=== PATIENT | female | born 1960 | race Caucasian/White ===

== ENCOUNTER 2016-05-04 15:42 | Emergency (ER) | payer BC, MEDICARE, OTHER ==
--- NOTE | 2016-05-04 16:58 | ED.PDOC ---
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 She took out some garbage that had been behind the patient's chair for an unknown period of time, and was stuck by a hypodermic needle at the bottom of the trash bag. The patient does not take any medications parenterally, therefore, the source of the needle is unknown. Patient copiously washed her finger with soap and water after the stick and called her employer who told her to come to the ED for evaluation. Timing/Duration: other - 1300 today Severity: moderate Improving Factors: nothing Worsening Factors: nothing Allergies/Adverse Reactions: Allergies Cephalexin [From Keflex] Allergy (Unknown, Verified 05/04/16 15:58) per physician order sheet Morphine Allergy (Unknown, Verified 05/04/16 15:58) Erythromycin Allergy (Verified 05/04/16 15:58) Orphenadrine [From K-Flex] Allergy (Verified 05/04/16 15:58) Prochlorperazine [From Compazine] Allergy (Verified 05/04/16 15:58) Sulfa Drugs Allergy (Verified 05/04/16 15:58) Tetanus Toxoid Allergy (Verified 03/01/15 19:23) mycins Allergy (Uncoded 05/04/16 15:58) Home Medications: Ambulatory Orders Duloxetine HCl [Cymbalta] 60 mg PO BID #0 07/11/13 Sertraline HCl [Zoloft] 100 mg PO DAILY 12/13/14 Clindamycin HCl 300 mg PO TID #21 cap 05/04/16 Clonazepam 2 mg PO 05/04/16 Emtricitabine-Tenofovir Alafen [Descovy 200-25 mg] 1 tab PO DAILY #28 tab Raltegravir Potassium [Isentress] 400 mg PO BID #56 tab 05/04/16 Review of Systems - Review of Systems Constitutional: States: no symptoms reported EENTM: States: no symptoms reported Respiratory: States: no symptoms reported Cardiology: States: chest pain Gastrointestinal/Abdominal: States: diarrhea Genitourinary: States: no symptoms reported Musculoskeletal: States: no symptoms reported Skin: States: no symptoms reported Neurological: States: seizure Endocrine: States: no symptoms reported Hematologic/Lymphatic: States: no symptoms reported All other Systems: Reviewed and Negative Past Medical History (General) - Patient Medical History Hx Seizures: Yes Hx Stroke: No Hx Dementia: No Hx Asthma: No Hx of COPD: No Hx Cardiac Disorders: No Hx Congestive Heart Failure: No Hx Pacemaker: No Hx Hypertension: No Hx Thyroid Disease: No Hx Diabetes: No Hx Gastroesophageal Reflux: No Hx Renal Disease: No Hx Cancer: No Hx of HIV: No Hx Hepatitis C: No Hx MRSA: No MRSA Source:: nasal Surgical History: Hysterectomy - Vaccination History Hx Tetanus, Diphtheria Vaccination: No Hx Influenza Vaccination: No Hx Pneumococcal Vaccination: No Immunizations Up to Date: No - Social History Hx Tobacco Use: No Hx Chewing Tobacco Use: No Hx Alcohol Use: No Hx Substance Use: Yes - iv drugs Hx Substance Use Treatment: No Hx Depression: Yes Feels Threatened In Home Enviroment: No Feels Threatened In a Relationship: No Hx Physical Abuse: No Hx Emotional Abuse: No Hx Suspected Abuse: No - Female History Patient : No Family Medical History - Family History Mother Family History: No Known Living Status: Unknown Hx Family Asthma: No Hx Family;Other: pt unable to explain family history at this time Physical Exam - Physical Exam General Appearance: Agitated, Anxious, No apparent distress Ears, Nose, Throat: hearing grossly normal Respiratory: no respiratory distress Extremity: other - Right 3rd finger: erythema with very small puncture at volar tip of finger Neurologic: alert, oriented x 3 Skin Exam: other - See extremity exam. Departure - Departure Clinical Impression: Exposure to body fluids by contaminated hypodermic needle stick Time of Disposition: 17:56 Disposition: Discharge to Home or Self Care Departure Forms: ED Discharge - Pt. Copy, Patient Portal Self Enrollment Diet: resume usual diet Referrals: Mikey Singh MD [Primary Care Provider] - 1-2 Weeks Prescriptions: Clindamycin HCl 300 mg PO TID #21 cap Emtricitabine-Tenofovir Alafen [Descovy 200-25 mg] 1 tab PO DAILY #28 tab Raltegravir Potassium [Isentress] 400 mg PO BID #56 tab Home Medications: Ambulatory Orders Duloxetine HCl [Cymbalta] 60 mg PO BID #0 07/11/13 Sertraline HCl [Zoloft] 100 mg PO DAILY 12/13/14 Clindamycin HCl 300 mg PO TID #21 cap 05/04/16 Clonazepam 2 mg PO 05/04/16 Emtricitabine-Tenofovir Alafen [Descovy 200-25 mg] 1 tab PO DAILY #28 tab Raltegravir Potassium [Isentress] 400 mg PO BID #56 tab 05/04/16
[2016-05-04 18:05] VITALS: BP 99/67; TEMP 98.2; O2SAT 100
== END 2016-05-04 18:07 | disposition home or self-care (01) ==
LOC: ER 15:42
DX: S61.232A Puncture wound without foreign body of right middle finger without damage to nail, initial encounter (principal); Z88.6 Allergy status to analgesic agent; Z88.3 Allergy status to other anti-infective agents; Z88.2 Allergy status to sulfonamides; Z88.7 Allergy status to serum and vaccine; Z79.899 Other long term (current) drug therapy; W46.1XXA Contact with contaminated hypodermic needle, initial encounter; Y92.009 Unspecified place in unspecified non-institutional (private) residence as the place of occurrence of the external cause; Y99.0 Civilian activity done for income or pay

== ENCOUNTER 2016-05-06 18:47 | Emergency (ER) | payer MEDICARE ==
[2016-05-06] MEDS ORDERED: SODIUM CHLORIDE 0.9% 1000ML 1,000 ML IVS ONE (19:02)
[2016-05-06] MEDS: KETOROLAC TROMETHAMINE INJ 30 MG/ML VIAL IV ONE ×2 (20:05→20:09)
[2016-05-06] MEDS ORDERED: KETOROLAC TROMETHAMINE INJ 30 MG/ML VIAL IV ONE (20:46)
--- NOTE | 2016-05-06 20:52 | CT ---
EXAM DESCRIPTION: CT Abdomen/Pelvis w/Contrast CLINICAL HISTORY: lower back pain, hx of stones COMPARISON: None Available TECHNIQUE: Contiguous axial images of the abdomen and pelvis were obtained after the administration of intravenous contrast followed by reconstruction images. FINDINGS: The liver, spleen, pancreas and kidneys are within normal limits. There is no hydronephrosis or renal stones. The gallbladder is unremarkable by CT criteria. Adrenal glands are within normal limits. Aorta is of normal caliber and tapering. There is atherosclerosis. Patient is status post lumbar surgery. There is no free fluid in the abdomen or pelvis. There is no bowel obstruction. There is no stranding of the mesenteric fat to suggest an inflammatory response. The appendix is within normal limits. There is no pericecal inflammation. IMPRESSION: No acute intra-abdominal abnormality Electronically signed by: Rodrick Pedraza MD 05/06/2016 6:51 PM PST
--- NOTE | 2016-05-06 21:00 | ED.PDOC ---
History of Present Illness - General Chief Complaint: Problem Stated Complaint: has not voided Time Seen by Provider: 05/06/16 18:57 Source: patient Exam Limitations: no limitations - History of Present Illness Initial Comments: Patient presents saying that she has had diarrhea and has not been able to void in 2 days. She is a poor historian and says that she was able to void some yesterday for a doctor's visit. She had a stool sample taken at that time. She says she has severe right lower back pain and wants pain medications because it feels like when she had "stones". She had a needle stick injury at work earlier this week and says that she has not taken any of the prophylactic medications prescribed to her. No other complaints. Timing/Duration: 1 week Severity: moderate Improving Factors: nothing Worsening Factors: nothing Associated Symptoms: denies symptoms Allergies/Adverse Reactions: Allergies Cephalexin [From Keflex] Allergy (Unknown, Verified 05/06/16 19:08) per physician order sheet Morphine Allergy (Unknown, Verified 05/06/16 19:08) Erythromycin Allergy (Verified 05/06/16 19:08) Orphenadrine [From K-Flex] Allergy (Verified 05/06/16 19:08) Prochlorperazine [From Compazine] Allergy (Verified 05/06/16 19:08) Sulfa Drugs Allergy (Verified 05/06/16 19:08) Tetanus Toxoid Allergy (Verified 05/06/16 19:08) mycins Allergy (Uncoded 05/06/16 19:08) Home Medications: Ambulatory Orders Duloxetine HCl [Cymbalta] 60 mg PO BID #0 07/11/13 Sertraline HCl [Zoloft] 100 mg PO DAILY 12/13/14 Clindamycin HCl 300 mg PO TID #21 cap 05/04/16 Clonazepam 2 mg PO 05/04/16 Emtricitabine-Tenofovir Alafen [Descovy 200-25 mg] 1 tab PO DAILY #28 tab Raltegravir Potassium [Isentress] 400 mg PO BID #56 tab 05/04/16 Review of Systems - Review of Systems Constitutional: States: no symptoms reported EENTM: States: no symptoms reported Respiratory: States: no symptoms reported Cardiology: States: no symptoms reported Gastrointestinal/Abdominal: States: see HPI Genitourinary: States: see HPI Musculoskeletal: States: see HPI Skin: States: no symptoms reported Neurological: States: no symptoms reported Endocrine: States: no symptoms reported Hematologic/Lymphatic: States: no symptoms reported Past Medical History (General) - Patient Medical History Hx Seizures: Yes Hx Stroke: No Hx Dementia: No Hx Asthma: No Hx of COPD: No Hx Cardiac Disorders: No Hx Congestive Heart Failure: No Hx Pacemaker: No Hx Hypertension: No Hx Thyroid Disease: No Hx Diabetes: No Hx Gastroesophageal Reflux: No Hx Renal Disease: No Hx Cancer: No Hx of HIV: No Hx Hepatitis C: No Hx MRSA: No MRSA Source:: nasal Surgical History: Hysterectomy - Vaccination History Hx Tetanus, Diphtheria Vaccination: Yes Hx Influenza Vaccination: No Hx Pneumococcal Vaccination: No Immunizations Up to Date: No - Social History Hx Tobacco Use: No Hx Chewing Tobacco Use: No Hx Alcohol Use: Yes Hx Substance Use: No Hx Substance Use Treatment: No Hx Depression: Yes Hx Physical Abuse: No Hx Emotional Abuse: No Hx Suspected Abuse: No - Female History Patient is a Female of Child Bearing Age (10 -59 yrs old): No Patient : No Family Medical History - Family History Mother Family History: No Known Living Status: Unknown Hx Family Asthma: No Hx Family;Other: pt unable to explain family history at this time Physical Exam - Physical Exam General Appearance: Alert Ears, Nose, Throat: normal ENT inspection Neck: non-tender, full range of motion, supple Respiratory: chest non-tender, lungs clear, normal breath sounds Cardiovascular/Chest: regular rate, rhythm, no edema Gastrointestinal/Abdominal: normal bowel sounds, non tender, soft Back Exam: normal inspection, no CVA tenderness, no vertebral tenderness Extremity: no pedal edema Neurologic: no motor/sensory deficits Skin Exam: normal color Lymphatic: no adenopathy Progress - Progress Progress: 05/06/16 21:01 Laboratory Tests 05/06/16 19:10 WBC 9.8 RBC 4.35 Hgb 13.2 Hct 39.3 MCV 90.3 MCH 30.4 MCHC 33.7 RDW 13.4 Plt Count 244 MPV 8.4 Absolute Neuts (auto) 4.60 Absolute Lymphs (auto) 4.20 H Absolute Monos (auto) 0.70 Absolute Eos (auto) 0.20 Absolute Basos (auto) 0.10 Neutrophils % 47.2 Lymphocytes % 42.4 Monocytes % 7.4 Eosinophils % 2.0 Basophils % 1.0 Sodium 138 Potassium 4.2 Chloride 102 Carbon Dioxide 29 Anion Gap 11.2 L BUN 23 H D Creatinine 0.58 L BUN/Creatinine Ratio 39.7 H Random Glucose 91 Serum Osmolality 278.9 Calcium 9.0 Total Bilirubin 0.2 D AST 25 ALT 22 Alkaline Phosphatase 81 D Serum Total Protein 7.3 Albumin 4.7 Globulin 2.6 Albumin/Globulin Ratio 1.8 Patient was cathed for a urine sample. BUN/Cr 23/0.58. Patient was given a liter of NS and toradol 30 mg IV x one. Her pain resolved and she refused another liter of fluid. She said she could drink fluids at home. Patient was provided with a self-cath kit and instructions to follow up with her pcp or urology if for urinary retention. Departure - Departure Clinical Impression: Retention of urine, Dehydration Disposition: Discharge to Home or Self Care Condition: Good Departure Forms: ED Discharge - Pt. Copy, Patient Portal Self Enrollment Diet: resume usual diet Activity: increase activity as tolerated Referrals: Mikey Singh MD [Primary Care Provider] - 1-2 Weeks Home Medications: Ambulatory Orders Duloxetine HCl [Cymbalta] 60 mg PO BID #0 07/11/13 Sertraline HCl [Zoloft] 100 mg PO DAILY 12/13/14 Clindamycin HCl 300 mg PO TID #21 cap 05/04/16 Clonazepam 2 mg PO 05/04/16 Emtricitabine-Tenofovir Alafen [Descovy 200-25 mg] 1 tab PO DAILY #28 tab Raltegravir Potassium [Isentress] 400 mg PO BID #56 tab 05/04/16 Additional Instructions: Increase fluids. Perform self-cath as needed. Follow up with primary care physician or urologist for your reported urinary retention.
[2016-05-06 21:38] VITALS: BP 107/70; TEMP 96.7; O2SAT 97
== END 2016-05-06 21:37 | disposition home or self-care (01) ==
LOC: ER 18:47
DX: E86.0 Dehydration (principal); R33.9 Retention of urine, unspecified; Z87.442 Personal history of urinary calculi; Z88.3 Allergy status to other anti-infective agents; Z88.6 Allergy status to analgesic agent; Z88.2 Allergy status to sulfonamides; Z88.7 Allergy status to serum and vaccine
CPT/HCPCS: 36415; 74177; 80053; 81001; 83630; 85025; 87045; 87046; 87324; J1885; J7030

== ENCOUNTER 2016-05-27 18:04 | Emergency (ER) | payer MEDICARE ==
[2016-05-27] MEDS: SUMAtriptan SUCCINATE INJ 6 MG/0.5 ML VIAL SUBCU ONE (18:50)
--- NOTE | 2016-05-27 19:22 | ED.PDOC ---
History of Present Illness - General Chief Complaint: Headache Stated Complaint: MIGRAINE Time Seen by Provider: 05/27/16 18:34 Source: patient, RN notes reviewed, Vital Signs reviewed, family Exam Limitations: no limitations - History of Present Illness Initial Comments: Patient is a 55 y/o female with a history of migraines who has had a headache for 5 days. It was somewhat tolerable until today. She has taken Imitrex for headaches previously, however she does not have any now. She tries to not take any medications if possible. She has nausea as well. She is photophobic. Timing/Duration: getting worse, other - 4 days Severity: severe Improving Factors: nothing Worsening Factors: other - light, sound Associated Symptoms: headaches, nausea/vomiting Allergies/Adverse Reactions: Allergies Cephalexin [From Keflex] Allergy (Unknown, Verified 05/06/16 19:08) per physician order sheet Morphine Allergy (Unknown, Verified 05/06/16 19:08) Erythromycin Allergy (Verified 05/06/16 19:08) Orphenadrine [From K-Flex] Allergy (Verified 05/06/16 19:08) Prochlorperazine [From Compazine] Allergy (Verified 05/06/16 19:08) Sulfa Drugs Allergy (Verified 05/06/16 19:08) Tetanus Toxoid Allergy (Verified 05/06/16 19:08) mycins Allergy (Uncoded 05/06/16 19:08) Home Medications: Ambulatory Orders Duloxetine HCl [Cymbalta] 60 mg PO BID #0 07/11/13 Sertraline HCl [Zoloft] 100 mg PO DAILY 12/13/14 Clonazepam 2 mg PO PRN 05/04/16 Review of Systems - Review of Systems Constitutional: States: no symptoms reported EENTM: States: no symptoms reported Respiratory: States: no symptoms reported Cardiology: States: no symptoms reported Gastrointestinal/Abdominal: States: nausea Genitourinary: States: no symptoms reported Musculoskeletal: States: no symptoms reported Skin: States: no symptoms reported Neurological: States: anxiety, headache Endocrine: States: no symptoms reported Hematologic/Lymphatic: States: no symptoms reported All other Systems: Reviewed and Negative Past Medical History (General) - Patient Medical History Hx Seizures: Yes Hx Stroke: No Hx Dementia: No Hx Asthma: No Hx of COPD: No Hx Cardiac Disorders: No Hx Congestive Heart Failure: No Hx Pacemaker: No Hx Hypertension: No Hx Thyroid Disease: No Hx Diabetes: No Hx Gastroesophageal Reflux: No Hx Renal Disease: No Hx Cancer: No Hx of HIV: No Hx Hepatitis C: No Hx MRSA: No MRSA Source:: nasal Surgical History: Hysterectomy - Vaccination History Hx Tetanus, Diphtheria Vaccination: Yes Hx Influenza Vaccination: No Hx Pneumococcal Vaccination: No - Social History Hx Tobacco Use: Yes Hx Chewing Tobacco Use: No Hx Alcohol Use: Yes Hx Substance Use: No Hx Substance Use Treatment: No Hx Depression: Yes Hx Physical Abuse: No Hx Emotional Abuse: No Hx Suspected Abuse: No - Female History Patient : No Family Medical History - Family History Mother Family History: No Known Living Status: Unknown Hx Family Asthma: No Hx Family;Other: pt unable to explain family history at this time Physical Exam - Physical Exam General Appearance: Alert, Obvious distress, Restless Ears, Nose, Throat: hearing grossly normal, normal ENT inspection Respiratory: lungs clear, normal breath sounds, no respiratory distress, no accessory muscle use Cardiovascular/Chest: regular rate, rhythm, no edema, no gallop, no murmur Gastrointestinal/Abdominal: non tender, soft, no organomegaly, no pulsatile mass Extremity: normal range of motion, non-tender, normal inspection, no pedal edema Neurologic: alert, oriented x 3, depressed affect Skin Exam: normal color, warm/dry Progress - Progress Progress: 05/27/16 19:44 Shortly after Patient had been given the Imitrex, she proceeded to have a "seizure." She was given ativan 2 mg IV. The seizure, although similar to tonic/clonic, was diferent in that her arms were clonic and the rest of her body was tonic/clonic. Additionally, her eye were closed during the entire seizure. However, until she is further evaluated by Neurology, I will consider this a seizure. 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 After the major seizure was over, Patient continued to have clonic movements of her extremities, therefore, she was given phenobarbitol 250 mg to attempt to control this activity. Patient fell asleep shortly thereafter, and when I woke her prior to discharge, she did not have a headache. 05/27/16 21:22 Departure - Departure Clinical Impression: Seizure Migraine Qualifiers: Migraine type: unspecified Status migrainosus presence: without status migrainosus Intractability: not intractable Qualifier Code: (G43.909) Migraine, unspecified, not intractable, without status migrainosus Time of Disposition: 21:26 Disposition: Discharge to Home or Self Care Condition: Fair Departure Forms: ED Discharge - Pt. Copy, Patient Portal Self Enrollment Instructions: DI for Migraine, DI for Seizure Disorder -- Adult Diet: resume usual diet Referrals: Mikey Singh MD [Primary Care Provider] - 1-2 Weeks Home Medications: Ambulatory Orders Duloxetine HCl [Cymbalta] 60 mg PO BID #0 07/11/13 Sertraline HCl [Zoloft] 100 mg PO DAILY 12/13/14 Clonazepam 2 mg PO PRN 05/04/16
[2016-05-27] MEDS: PHENOBARBITAL SODIUM 65 MG/ML IV ONE (20:09)
[2016-05-27 21:17] VITALS: BP 99/63; O2SAT 98
[2016-05-27 21:40] VITALS: TEMP 97.8
== END 2016-05-27 21:40 | disposition home or self-care (01) ==
LOC: ER 18:04
DX: G43.909 Migraine, unspecified, not intractable, without status migrainosus (principal); G40.909 Epilepsy, unspecified, not intractable, without status epilepticus; Z79.899 Other long term (current) drug therapy; Z88.7 Allergy status to serum and vaccine; Z88.2 Allergy status to sulfonamides; Z88.8 Allergy status to other drugs, medicaments and biological substances; Z87.891 Personal history of nicotine dependence
CPT/HCPCS: J2060; J2560; J3030

== ENCOUNTER 2016-05-28 14:05 | Emergency (ER) | payer MEDICARE ==
[2016-05-28] MEDS ORDERED: SODIUM CHLORIDE 0.9% 1000ML 1,000 ML IVS ONE (16:35)
[2016-05-28] MEDS ORDERED: DIHYDROERGOTAMINE MESYLATE 1 MG/ML VIAL IV ONE (16:35)
[2016-05-28] MEDS ORDERED: PROMETHAZINE HCL INJ 25 MG/ML VIAL IVPB ONE (17:21)
[2016-05-28] MEDS ORDERED: SODIUM CHLORIDE 0.9% 50 ML BAG IVPB ONE (17:21)
== END 2016-05-28 18:55 | disposition home or self-care (01) ==
LOC: ER 14:05
DX: R51 Headache (principal)
CPT/HCPCS: A4216; J1110; J2550; J7030

== ENCOUNTER 2016-08-03 21:24 | Observation (INO) | payer MEDICARE ==
[2016-08-03] MEDS ORDERED: SODIUM CHLORIDE 0.9% 1000ML 1,000 ML IVS ONE (21:44)
--- NOTE | 2016-08-03 23:13 | ED.PDOC ---
History of Present Illness - General Chief Complaint: Drug or Alcohol Abuse Stated Complaint: POSS OVERDOSE Time Seen by Provider: 08/03/16 21:43 Source: RN notes reviewed, Vital Signs reviewed, family Exam Limitations: no limitations - History of Present Illness Initial Comments: reports he was talking to his on the phone about 4pm today when he noticed her voice starting to slur. He was concerned about a drug or alcohol overdose as she had a long history of abuse and addiction issues. He had friends go to his house and get her and watch her. When he arrived back in town she was still very lethargic and appeared intoxicated so he brought her to the ER. Patient denies any drug or alcohol use today but is lethargic, slurring her words and appears intoxicated. Timing/Duration: this afternoon Severity: severe Associated Symptoms: denies symptoms Allergies/Adverse Reactions: Allergies Cephalexin [From Keflex] Allergy (Unknown, Verified 05/06/16 19:08) per physician order sheet Morphine Allergy (Unknown, Verified 05/06/16 19:08) Erythromycin Allergy (Verified 05/06/16 19:08) Orphenadrine [From K-Flex] Allergy (Verified 05/06/16 19:08) Prochlorperazine [From Compazine] Allergy (Verified 05/06/16 19:08) Sulfa Drugs Allergy (Verified 05/06/16 19:08) Tetanus Toxoid Allergy (Verified 05/06/16 19:08) mycins Allergy (Uncoded 05/06/16 19:08) Home Medications: Ambulatory Orders Duloxetine HCl [Cymbalta] 60 mg PO BID #0 07/11/13 Sertraline HCl [Zoloft] 100 mg PO DAILY 12/13/14 Clonazepam 2 mg PO PRN 05/04/16 Review of Systems - Review of Systems Constitutional: States: no symptoms reported Respiratory: States: no symptoms reported Cardiology: States: no symptoms reported Gastrointestinal/Abdominal: States: no symptoms reported Neurological: States: see HPI Unable to Obtain Due To: condition Past Medical History (General) - Patient Medical History Hx Seizures: Yes Hx Stroke: No Hx Dementia: No Hx Asthma: No Hx of COPD: No Hx Cardiac Disorders: No Hx Congestive Heart Failure: No Hx Pacemaker: No Hx Hypertension: No Hx Thyroid Disease: No Hx Diabetes: No Hx Gastroesophageal Reflux: No Hx Renal Disease: No Hx Cancer: No Hx of HIV: No Hx Hepatitis C: No Hx MRSA: No MRSA Source:: nasal - Vaccination History Hx Tetanus, Diphtheria Vaccination: Yes Hx Influenza Vaccination: No Hx Pneumococcal Vaccination: No - Social History Hx Tobacco Use: Yes Hx Chewing Tobacco Use: No Hx Alcohol Use: Yes Hx Substance Use: No Hx Substance Use Treatment: No Hx Depression: Yes Hx Physical Abuse: No Hx Emotional Abuse: No Hx Suspected Abuse: No - Female History Patient is a Female of Child Bearing Age (10 -59 yrs old): Yes Patient : No Family Medical History - Family History Mother Family History: No Known Living Status: Unknown Hx Family Asthma: No Hx Family;Other: pt unable to explain family history at this time Physical Exam - Physical Exam General Appearance: Comfortable, Unkempt, Other - Smells of acetone and appears intoxicated. Neck: non-tender, full range of motion, supple, normal inspection Respiratory: chest non-tender, lungs clear, normal breath sounds, no respiratory distress, no accessory muscle use Cardiovascular/Chest: regular rate, rhythm, no gallop, no murmur Gastrointestinal/Abdominal: normal bowel sounds, non tender, soft Neurological: agitated - interspersed with lethargy Appearance: denies illness, disheveled, impaired insight Behavior/Eye Contact/Speech: uncooperative, other - slurred speech Thoughts/Hallucinations: incoherent Skin Exam: normal color, warm/dry Progress - Progress Progress: 08/03/16 23:20 Work up only shows + Benzo's which she does take. ? if she found the bottle and took extra. She is writhing in bed, movements appear very purposeful and she talks and answers appropriately. Will get CT of head. 08/04/16 00:15 went home and found a empty bottle of Listerine hidden in her room. She has drunk bottles of Listerine before and this is exactly how she acted. Usually by the next day she is back to normal. 08/04/16 00:54 Patient intoxicated from unknown substance. Called poison control and they did not feel it was the Listerine. Will admit to hospital for observation and IV fluids. Discussed with Hospitalist and family who are agreeable with plan. - Results/Orders Results/Orders: Laboratory Tests 08/03/16 08/03/16 08/03/16 22:05 22:05 22:05 WBC 9.3 RBC 4.47 Hgb 13.5 Hct 40.2 MCV 89.9 MCH 30.2 MCHC 33.6 RDW 13.3 Plt Count 242 MPV 8.5 Absolute Neuts (auto) 6.00 Absolute Lymphs (auto) 2.70 Absolute Monos (auto) 0.50 Absolute Eos (auto) 0.00 Absolute Basos (auto) 0.10 Neutrophils % 64.5 Lymphocytes % 28.8 Monocytes % 5.9 Eosinophils % 0.2 L Basophils % 0.6 Sodium 139 Potassium 3.7 Chloride 102 Carbon Dioxide 29 Anion Gap 11.7 L BUN 14 Creatinine 1.11 BUN/Creatinine Ratio 12.6 Random Glucose 117 H Serum Osmolality 279.0 Calcium 9.1 Total Bilirubin 0.4 AST 20 ALT 16 Alkaline Phosphatase 59 Serum Total Protein 7.3 Albumin 4.5 Globulin 2.8 Albumin/Globulin Ratio 1.6 Urine Opiates Screen Acetaminophen Urine Barbiturates Ur Phencyclidine Scrn U Amphetamin/Meth Scrn U Benzodiazepines Scrn U Cocaine Metab Screen U Cannabinoids Screen Ethyl Alcohol < 5.40 08/03/16 08/03/16 22:45 23:22 WBC RBC Hgb Hct MCV MCH MCHC RDW Plt Count MPV Absolute Neuts (auto) Absolute Lymphs (auto) Absolute Monos (auto) Absolute Eos (auto) Absolute Basos (auto) Neutrophils % Lymphocytes % Monocytes % Eosinophils % Basophils % Sodium Potassium Chloride Carbon Dioxide Anion Gap BUN Creatinine BUN/Creatinine Ratio Random Glucose Serum Osmolality Calcium Total Bilirubin AST ALT Alkaline Phosphatase Serum Total Protein Albumin Globulin Albumin/Globulin Ratio Urine Opiates Screen Negative Acetaminophen < 10.0 L Urine Barbiturates Negative Ur Phencyclidine Scrn Negative U Amphetamin/Meth Scrn Negative U Benzodiazepines Scrn Positive H U Cocaine Metab Screen Negative U Cannabinoids Screen Negative Ethyl Alcohol - EKG/XRAY/CT CT Ordered: Yes - Head: no acute intracranial abnormalities Departure - Departure Clinical Impression: Intoxication by drug Qualifiers: Complication of substance-induced condition: with delirium Qualified Code(s): F19.921 - Other psychoactive substance use, unspecified with intoxication with delirium Time of Disposition: 00:56 Disposition: Admit Patient Condition: Fair Departure Forms: ED Discharge - Pt. Copy, Patient Portal Self Enrollment Referrals: Mikey Singh MD [Primary Care Provider] - 1-2 Weeks Home Medications: Ambulatory Orders Duloxetine HCl [Cymbalta] 60 mg PO BID #0 07/11/13 Sertraline HCl [Zoloft] 100 mg PO DAILY 12/13/14 Clonazepam 2 mg PO PRN 05/04/16 Decision To Admit - Decistion To Admit Decision to Admit Reason: Admit from ER - Intoxicated - unknown substance
--- NOTE | 2016-08-04 00:07 | CT ---
PROCEDURE: Head HISTORY: altered mental status Indication: Same as above Comparison: 02/09/2015 Technique: CT of the head was done without intravenous contrast was done in the endoleak This exam was performed according to our departmental dose-optimization program, which includes automated exposure control, adjustment of the mA and/or KV according to the patient's size and/or use of iterative reconstruction technique. FINDINGS: There is no intracranial hemorrhage, midline shift mass effect or acute focal infarct. The study is somewhat compromised by motion artifact If clinical concern exists regarding an acute ischemic/vascular pathology being responsible for patient's symptomatology, an MRI of the brain is more sensitive than the current study, in ruling out such a possibility. There is good doran/white matter differentiation. The ventricular system is normal. The mastoid air cells are unremarkable . The paranasal sinuses are unremarkable . There is no visualization of acute fractures involving the calvarium or the skull base. IMPRESSION: There is no acute intracranial abnormality, given the limitation of motion artifact on the current study. Electronically signed by: Nba Quiles MD 08/04/2016 12:07 AM CDT
[2016-08-04] MEDS ORDERED: SODIUM CHLORIDE 0.9% (FLUSH) 10 ML SYG IV PRN (01:06)
[2016-08-04] MEDS ORDERED: ACETAMINOPHEN 325 MG TAB PO PRN (01:17)
[2016-08-04] MEDS ORDERED: IV SET AND CAP CHANGE INJ INJ SCH (01:30)
[2016-08-04] MEDS ORDERED: KETOROLAC TROMETHAMINE INJ 30 MG/ML VIAL IV ONE ×2 (01:32→10:03)
[2016-08-04] MEDS ORDERED: KCL 20 MEQ/NS 1,000 ML IVS PRN (01:51)
[2016-08-04] MEDS ORDERED: SODIUM CHLORIDE 0.9% 1000ML 1,000 ML IVS ONE (06:12)
--- NOTE | 2016-08-04 08:44 | RAD ---
EXAM DESCRIPTION: Chest,2 Views CLINICAL HISTORY: 56 years Female, COPD IMPRESSION: 2 views of the chest are unremarkable with no megaly or infiltrates on today's study. No pneumothorax or pleural effusion. Electronically signed by: Noam Brunson MD 08/04/2016 8:44 AM CDT
[2016-08-04 09:08] VITALS: BP 93/58; TEMP 98.2; O2SAT 98
--- NOTE | 2016-08-05 11:06 | SSS ---
SUPERVISING PHYSICIAN: Cb Zarate MD DATE OF ADMISSION: 08/03/16 DATE OF DISCHARGE: 08/04/16 DISCHARGE DIAGNOSIS: 1. Acute delirium secondary to intoxication of unknown substance, felt to be probably medication interaction between Klonopin and Lamictal with exacerbation from the patient drinking Listerine. 2. Longstanding history of substance abuse, currently under an outpatient treatment plan in [facility]. 3. Polyarthritis. 4. 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 Flannery, currently not on any prescribed seizure medication from neurologist. 5. Chronic pain. 6. Depression and anxiety. 7. Cervical degenerative disc disease. 8. Lumbar degenerative disc disease. HISTORY OF PRESENT ILLNESS: Ms. Washburn is a 56-year-old, female patient who presented to the Emergency Department late 08/03/16 for possible drug overdose. Her reported that he was talking to his on the phone about 4 PM when he noticed her voice was quite slurred. He was concerned about a drug or alcohol overdose as she does have a longstanding history of abuse and addiction issues. He notified a friend who went to the house to help watch the patient. When he got back to [facility], she continued to be very lethargic and appeared to be intoxicated, so he brought her to the Emergency Department. On presentation, the patient denied any drug or alcohol usage, but she was quite lethargic, slurring her words, appeared to be intoxicated and was belligerent. Laboratory studies showed normal CBC, normal chemistries. Urinalysis showed just a trace of blood. Toxicology screen was negative for salicylates, acetaminophen, and alcohol. Understand was positive for benzodiazepines, however, the patient does take Klonopin. Poison Control was notified in regards to possible overdose and Listerine consumption and recommended that the Listerine was not likely the cause of the change in behavior, more likely related to something she had taken in regards to her medication. It is noted that the patient does take Lamictal and clonazepam as well as trazodone. It is felt that the Lamictal/clonazepam combination may have actually resulted in the symptoms as she had just recently started on Lamictal after a short stay at [facility] for addiction behavior. The patient was placed in observation to allow for close observation in the interim to see if she would return back to her normal baseline status. She was admitted in stable condition. PAST MEDICAL HISTORY: 1. Polyarthritis. 2. 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 3. Chronic pain. 4. Depression. 5. Cervical degenerative disc disease. 6. Lumbar degenerative disc disease. 7. History of migraines. PAST SURGICAL HISTORY: 1. Low back surgery. 2. Neck surgery with placement of stabilizing hardware in 2009. 3. sections times 3. 4. Hysterectomy. CURRENT MEDICATIONS: 1. Klonopin. 2. Zoloft. 3. Trazodone. 4. Cymbalta. ALLERGIES: CEPHALEXIN, MORPHINE, ERYTHROMYCIN, ORPHENADRINE, COMPAZINE, SULFA MEDICATIONS, TETANUS TOXOID AND MYCINS. FAMILY HISTORY: Negative. SOCIAL HISTORY: The patient lives at home with her who is a drug and abuse counselor. She does have a history of smoking one pack a day, but denies history of alcohol abuse, but does have a significant history of previous medication abuse for pain medications and benzodiazepines. REVIEW OF SYSTEMS: CONSTITUTIONAL: Denies any fevers, chills, or weight loss. HEENT: She does have a history of headaches and migraines. RESPIRATORY: Denies shortness of breath or cough. CARDIOVASCULAR: Denies chest pain or palpitations. Denies syncopal episodes. GASTROINTESTINAL: Denies nausea or vomiting. Denies diarrhea. NEUROLOGIC: As noted in history of present illness. PHYSICAL EXAMINATION: VITAL SIGNS: O2 saturation GENERAL: Initially on admission, the patient was unkept and had the smell of acetone and appeared to be intoxicated, however, prior to discharge on the morning of, she was very pleasant, cooperative and in no distress. HEENT: Tympanic membranes clear bilaterally. Oropharynx is pink, moist without any lesions. NECK: Supple. Full range of motion. Nontender. No jugular venous distention noted. CHEST: Lungs clear to auscultation bilaterally without any rhonchi, wheezes, or rales. CARDIOVASCULAR: Regular rate and rhythm without any appreciable murmurs, gallops, or rubs. ABDOMEN: Soft, nontender. Positive bowel sounds. EXTREMITIES: There is no cyanosis, clubbing or edema. NEUROLOGIC: Initially on admission from the Emergency Department, she was quite agitated interspersed with episodes of lethargy. However, on the morning of discharge, the patient was fully alert, eating breakfast without any agitation. PSYCHOLOGICAL: She did appear disheveled and had initially what appeared to be impaired reasoning. However, before discharge, the patient was very reasonable , very cooperative, no longer slurring her speech. She denied any homicidal or suicidal ideations. LABORATORY: CBC was normal. Chemistries within normal limits. Urinalysis showed just a trace of blood, otherwise within normal limits. Toxicology screen was negative for salicylates, acetaminophen, ethyl alcohol. Urine drug screen was positive for benzodiazepines, however, she does take Klonopin. RADIOLOGY: Head CT in the Emergency Department prior to admission per radiology interpretation showed no acute intracranial abnormalities. Two view chest x-ray the morning of discharge per radiology interpretation showed unremarkable chest. ASSESSMENT: As above discharge diagnosis. HOSPITAL COURSE: Ms. Washburn as noted in the history of present illness was admitted from the Emergency Department for acute intoxication with unknown substance. Initially, she was agitated and quite lethargic at times. She was admitted in stable condition, given IV fluids, oxygen, and watched closely on telemetry. She had no further episodes through the night of agitation. On the morning of discharge, she was back to her normal status mentally. She did have a sitter through the night who reported the patient had no problems and slept. The morning of discharge, her was present, who is an alcohol and substance abuse counselor, and after discussion with the patient, she is under current outpatient treatment therapy through program at [facility] and has been recently at [facility] for substance abuse. After discussion with the , he had gone to the house and found no unknown substances as well as he controls all her medications. Again, there was concern that maybe the new medication, which is Lamictal that was added while she was at [facility], had caused some interaction with the Klonopin. It was felt she was stable enough to be discharged. She was to have close clinical followup with her psychiatrist , Dr. Zarate, in [place] as well as her family care provider, Dr. Singh. PLAN: The patient was discharged to the care of her who is a substance and addiction counselor. The patient was encouraged to call her psychiatrist, Dr. Zarate. She was to hold her Lamictal until she could talk to Dr. Zarate in regards to the current hospitalization with concerns that maybe Lamictal was causing her symptoms with interaction with Klonopin. She was encouraged to stop smoking and to not use any drugs that were not prescribed for her as well as stop drinking Listerine or rubbing alcohol as these were certainly toxic substances that could cause major problems with her liver as well as her brain. She was not prescribed any new medications at discharge. Diet was to be regular as tolerated. Activities as tolerated. At time of discharge, condition was stable. She was without any suicidal or homicidal ideations and was of clear thinking and was discharged to the care of her . #[id number] [facility]
== END 2016-08-04 12:00 | disposition home or self-care (01) ==
LOC: ER 21:24 → MS 08-04 01:16
PROVIDERS: ADMIT Nurse Practitioner Family; ATTEND Nurse Practitioner Family
DX: F19.121 Other psychoactive substance abuse with intoxication delirium (principal); T49.6X1A Poisoning by otorhinolaryngological drugs and preparations, accidental (unintentional), initial encounter; R41.82 Altered mental status, unspecified; F17.210 Nicotine dependence, cigarettes, uncomplicated; M13.0 Polyarthritis, unspecified; G89.29 Other chronic pain; F32.9 Major depressive disorder, single episode, unspecified; F41.9 Anxiety disorder, unspecified; M50.30 Other cervical disc degeneration, unspecified cervical region; M51.36 Other intervertebral disc degeneration, lumbar region; Y92.009 Unspecified place in unspecified non-institutional (private) residence as the place of occurrence of the external cause; Z79.899 Other long term (current) drug therapy; Z88.3 Allergy status to other anti-infective agents; Z88.6 Allergy status to analgesic agent; Z88.2 Allergy status to sulfonamides; Z88.7 Allergy status to serum and vaccine; Z90.710 Acquired absence of both cervix and uterus
CPT/HCPCS: 36415; 70450; 71020; 80053; 80307; 80320; 80329 ×2; 81001; 85025; 93005; 94762; 96361 ×2; 96374; 96376; 99284; G0378; J1885 ×2; J3480; J7030 ×2

== ENCOUNTER 2016-08-13 15:24 | Emergency (ER) | payer OTHER ==
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
[2016-08-13] MEDS ORDERED: KETOROLAC TROMETHAMINE INJ 30 MG/ML VIAL IV ONE (17:15)
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
[2016-08-13 17:34] VITALS: O2SAT 100
[2016-08-13] MEDS ORDERED: ACETAMINOPHEN-CAFF-BUTALBITAL 1 EA TAB PO PRN (19:01)
[2016-08-13] MEDS ORDERED: ONDANSETRON ODT 8 MG TAB SL ONE (19:01)
[2016-08-13 19:42] VITALS: BP 137/78; TEMP 98.4
== END 2016-08-13 19:42 | disposition home or self-care (01) ==
LOC: ER 15:24
DX: S06.0X0A Concussion without loss of consciousness, initial encounter (principal); S42.025A Nondisplaced fracture of shaft of left clavicle, initial encounter for closed fracture; N39.0 Urinary tract infection, site not specified; Z88.6 Allergy status to analgesic agent; Z88.3 Allergy status to other anti-infective agents; Z88.2 Allergy status to sulfonamides; Z88.7 Allergy status to serum and vaccine; Z87.891 Personal history of nicotine dependence; V47.5XXA Car driver injured in collision with fixed or stationary object in traffic accident, initial encounter; Y92.488 Other paved roadways as the place of occurrence of the external cause
CPT/HCPCS: 36415; 70450; 71260; 72125; 73020; 74177; 80053; 81001; 84703; 85025; 85610; 85730; 87086; 93005; J1885

== ENCOUNTER → 2016-08-13 | Outpatient (CLI) | payer OTHER | LOC: GMAH 16:42 | PROVIDERS: ATTEND Family Medicine | DX: N30.00 Acute cystitis without hematuria (principal) ==

== ENCOUNTER 2016-08-15 19:49 | Emergency (ER) | payer OTHER, MEDICARE ==
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
--- NOTE | 2016-08-15 21:52 | RAD ---
EXAM DESCRIPTION: Chest,1 View CLINICAL HISTORY: 56 years, Female, shortness of breath COMPARISON: Chest x-ray dated 08/04/2016. FINDINGS: PA and lateral chest radiographs were performed The lungs are well expanded and clear. The costophrenic sulci are sharp. The cardiac silhouette, hilar regions, trachea, soft tissues and bony structures are unremarkable. No significant change since the prior study. IMPRESSION: No acute cardiopulmonary disease. Electronically signed by: Haylee Squires MD 08/15/2016 9:52 PM CDT
[2016-08-15] MEDS: ORPHENADRINE CITRATE 30 MG/ML AMP IM ONE (22:41)
[2016-08-15 23:03] VITALS: BP 134/70; TEMP 97; O2SAT 98
== END 2016-08-15 23:01 | disposition home or self-care (01) ==
LOC: ER 19:49
DX: S42.022D Displaced fracture of shaft of left clavicle, subsequent encounter for fracture with routine healing (principal); Z88.2 Allergy status to sulfonamides; Z88.6 Allergy status to analgesic agent; Z88.8 Allergy status to other drugs, medicaments and biological substances; Z88.7 Allergy status to serum and vaccine; Z79.899 Other long term (current) drug therapy; V89.2XXD Person injured in unspecified motor-vehicle accident, traffic, subsequent encounter
CPT/HCPCS: 36415; 71010; 85379; J2360

== ENCOUNTER 2016-08-17 18:32 | Emergency (ER) | payer OTHER, MEDICARE ==
[2016-08-17] MEDS ORDERED: ACETAMINOPHEN W/COD #3 TAB 1 EA TAB PO ONE (19:29)
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
[2016-08-17 20:13] VITALS: TEMP 98.1
[2016-08-17 20:50] VITALS: BP 109/70; O2SAT 96
== END 2016-08-17 20:50 | disposition home or self-care (01) ==
LOC: ER 18:32
DX: S42.022S Displaced fracture of shaft of left clavicle, sequela (principal); Z88.6 Allergy status to analgesic agent; Z88.2 Allergy status to sulfonamides; Z88.7 Allergy status to serum and vaccine; Z79.899 Other long term (current) drug therapy; V49.9XXD Car occupant (driver) (passenger) injured in unspecified traffic accident, subsequent encounter

== ENCOUNTER → 2016-08-20 | Day surgery (SDC) | payer MEDICARE, OTHER ==
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
== END ==
LOC: CANPRESDC → AMB 09:00
PROVIDERS: ATTEND Orthopaedic Surgery
DX: S42.022A Displaced fracture of shaft of left clavicle, initial encounter for closed fracture (principal); Z88.2 Allergy status to sulfonamides; Z88.8 Allergy status to other drugs, medicaments and biological substances; Z79.899 Other long term (current) drug therapy; Z53.9 Procedure and treatment not carried out, unspecified reason

== ENCOUNTER → 2016-08-20 | Outpatient (CLI) | payer OTHER, MEDICARE ==
--- NOTE | 2016-08-21 08:39 | RAD ---
EXAM DESCRIPTION: Clavicle,Left CLINICAL HISTORY: 56 years Female, PAIN IN LEFT SHOULDER COMPARISON: None. FINDINGS: An oblique fracture of the mid clavicle just proximal to its midpoint with almost one bone width dorsal displacement of the proximal fragment is present with very little angulation evident. Very minimal foreshortening is present without significant overriding noted. The remainder the chest wall including the first and second ribs and the remainder the shoulder girdle including the AC joint and glenohumeral articulation appear normal. IMPRESSION: Oblique fracture of the mid clavicle with minimal foreshortening and modest dorsal displacement of the proximal fragment with very little overriding. Electronically signed by: Vladislav Angeles MD 08/21/2016 8:37 AM CDT
== END ==
LOC: RAD 08:09
PROVIDERS: ATTEND Orthopaedic Surgery
DX: S42.022A Displaced fracture of shaft of left clavicle, initial encounter for closed fracture (principal)

== ENCOUNTER → 2016-08-21 | Outpatient (CLI) | payer OTHER, MEDICARE ==
--- NOTE | 2016-08-23 13:06 | RAD ---
EXAM DESCRIPTION: Chest CLINICAL HISTORY: 56 years, Female, PAIN IN LEFT SHOULDER COMPARISON: August 20 FINDINGS: Fracture middle third of the clavicle with overriding fracture fragments. Proximal fragment superiorly. IMPRESSION: Stable alignment midclavicular fracture Electronically signed by: Popeye Borjas MD 08/23/2016 1:05 PM CDT
== END | disposition home or self-care (01) ==
LOC: RAD 10:25
PROVIDERS: ATTEND Orthopaedic Surgery
DX: M25.512 Pain in left shoulder (principal)

== ENCOUNTER → 2016-08-28 | Outpatient (CLI) | payer MEDICARE ==
--- NOTE | 2016-08-28 17:17 | RAD ---
EXAM DESCRIPTION: Clavicle,Left CLINICAL HISTORY: 56 years Female, CLOSED FX OF CLAVICLE COMPARISON: August 21, 2016 FINDINGS: Again seen is a fracture involving the middle third of the left clavicle with one shaft width inferior displacement of the distal fracture fragment and no significant callus formation. Overall, the fracture is not significantly changed from one week prior. IMPRESSION: Nonunited displaced mid left clavicular fracture, not significantly changed from one week prior. Electronically signed by: Carrington Bell MD 08/28/2016 5:16 PM CDT
== END | disposition home or self-care (01) ==
LOC: RAD 09:28
PROVIDERS: ATTEND Orthopaedic Surgery
DX: S42.002D Fracture of unspecified part of left clavicle, subsequent encounter for fracture with routine healing (principal); X58.XXXA Exposure to other specified factors, initial encounter

== ENCOUNTER → 2016-09-01 | Outpatient (CLI) | payer MEDICARE ==
--- NOTE | 2016-09-02 13:25 | RAD ---
EXAM DESCRIPTION: Clavicle,Left CLINICAL HISTORY: FX LEFT CLAVICLE COMPARISON: August 28, 2016 IMPRESSION: 2 views of the left clavicle show an oblique fracture of the mid clavicle with 1 shaft width caudal displacement of the distal fracture fragment. Mild indistinctness of the fracture margins is seen with possible early callus formation. There is lack of significant bony union similar to previous exam. Electronically signed by: Álvaro Garcia MD 09/02/2016 1:25 PM CDT
== END ==
LOC: RAD 17:39
PROVIDERS: ATTEND Orthopaedic Surgery
DX: S42.002D Fracture of unspecified part of left clavicle, subsequent encounter for fracture with routine healing (principal)

== ENCOUNTER → 2016-09-10 | Outpatient (CLI) | payer MEDICARE ==
--- NOTE | 2016-09-10 08:56 | RAD ---
EXAM DESCRIPTION: Clavicle,Left CLINICAL HISTORY: FRACTURE OF UNSPECIFIED PART OF CLAVICLE COMPARISON: September 01, 2016 IMPRESSION: 2 views of the left clavicle show an oblique fracture of the mid clavicle with 1 shaft width caudal displacement of the distal fracture fragment. Mild indistinctness of the fracture margins is seen with possible early callus formation. There is lack of significant bony union similar to previous exam. There is also 2 mm diastases between the fracture fragments which is new since previous examination. Electronically signed by: Casey Flannery MD 09/10/2016 8:56 AM CDT
== END | disposition home or self-care (01) ==
LOC: RAD 08:26
PROVIDERS: ATTEND Orthopaedic Surgery
DX: S42.002D Fracture of unspecified part of left clavicle, subsequent encounter for fracture with routine healing (principal); X58.XXXA Exposure to other specified factors, initial encounter

== ENCOUNTER → 2016-09-17 | Outpatient (CLI) | payer MEDICARE | END | disposition home or self-care (01) | LOC: RAD 18:45 | PROVIDERS: ATTEND Orthopaedic Surgery | DX: S42.002D Fracture of unspecified part of left clavicle, subsequent encounter for fracture with routine healing (principal) ==

== ENCOUNTER 2016-09-20 16:17 | Emergency (ER) | payer MEDICARE ==
--- NOTE | 2016-09-20 17:41 | ED.PDOC ---
History of Present Illness - General Chief Complaint: Skin/Abrasion/Tear Stated Complaint: skin rash Time Seen by Provider: 09/20/16 17:27 Source: patient Additional Information: Camille Washburn 56 y/o female stated that she had skin rash on both arms for the last 3 weeks and had been taking Benadryl (otc) po but stating not getting any better. - History of Present Illness Timing/Duration: other - 3 weeks Severity: moderate Location: extremities Improving Factors: nothing, eating Associated Symptoms: itching Allergies/Adverse Reactions: Allergies Cephalexin [From Keflex] Allergy (Unknown, Verified 05/06/16 19:08) per physician order sheet Morphine Allergy (Unknown, Verified 05/06/16 19:08) Erythromycin Allergy (Verified 05/06/16 19:08) Orphenadrine [From K-Flex] Allergy (Verified 05/06/16 19:08) Prochlorperazine [From Compazine] Allergy (Verified 05/06/16 19:08) Sulfa Drugs Allergy (Verified 05/06/16 19:08) Tetanus Toxoid Allergy (Verified 05/06/16 19:08) mycins Allergy (Uncoded 05/06/16 19:08) Home Medications: Ambulatory Orders Duloxetine HCl [Cymbalta] 60 mg PO BID #0 07/11/13 Sertraline HCl [Zoloft] 100 mg PO DAILY 12/13/14 Clonazepam 2 mg PO BID 05/04/16 Trazodone HCl 150 mg PO BEDTIME 08/04/16 Metaxalone 800 mg PO TID PRN #30 tab 08/15/16 Hydrocodone-Acetaminophen [[place] 5-325 mg] 1 tab PO PRN PRN 08/20/16 Prednisone 10 mg PO BID #14 sagar 09/20/16 hydrOXYzine HCl [Atarax] 25 mg PO TID PRN #30 tab 09/20/16 Review of Systems - Review of Systems Constitutional: States: no symptoms reported EENTM: States: no symptoms reported Respiratory: States: no symptoms reported Cardiology: States: no symptoms reported Gastrointestinal/Abdominal: States: no symptoms reported Genitourinary: States: no symptoms reported Musculoskeletal: States: no symptoms reported Skin: States: see HPI Neurological: States: no symptoms reported Endocrine: States: no symptoms reported Hematologic/Lymphatic: States: no symptoms reported Past Medical History (General) - Patient Medical History Hx Seizures: Yes Hx Stroke: No Hx Dementia: No Hx Asthma: No Hx of COPD: No Hx Cardiac Disorders: No Hx Congestive Heart Failure: No Hx Pacemaker: No Hx Hypertension: No Hx Thyroid Disease: No Hx Diabetes: No Hx Gastroesophageal Reflux: No Hx Renal Disease: No Hx Cancer: No Hx of HIV: No Hx Hepatitis C: No Hx MRSA: No Hx Other PMH: Yes - chronic back pain MRSA Source:: nasal Surgical History: other - neck,lower back - Vaccination History Hx Tetanus, Diphtheria Vaccination: No Hx Influenza Vaccination: No Hx Pneumococcal Vaccination: No - Social History Hx Tobacco Use: No Hx Chewing Tobacco Use: No Hx Alcohol Use: No Hx Substance Use: No Hx Substance Use Treatment: No Hx Depression: No Hx Physical Abuse: No Hx Emotional Abuse: No Hx Suspected Abuse: No - Activities of Daily Living Patient Lives Alone: No - family - Female History Patient : No Family Medical History - Family History Mother Family History: No Known Living Status: Unknown Hx Family Asthma: No Hx Family;Other: pt unable to explain family history at this time Physical Exam - Physical Exam General Appearance: Alert, Comfortable, No apparent distress Eyes, Ears, Nose, Throat Exam: PERRL/EOMI, normal ENT inspection, TMs normal, pharynx normal Neck: non-tender, full range of motion, supple Cardiovascular/Chest: normal peripheral pulses, regular rate, rhythm, no edema, no gallop, no murmur Respiratory: chest non-tender, lungs clear, normal breath sounds Gastrointestinal/Abdominal: normal bowel sounds, non tender, soft, no organomegaly Back Exam: normal inspection, no CVA tenderness Extremity: normal range of motion, non-tender, normal inspection, no pedal edema , no calf tenderness Neurologic: no motor/sensory deficits, alert, normal mood/affect, oriented x 3 Skin Exam: warm/dry, normal color Skin Problem Location: upper extremities Skin Character: erythema, macules, papules, rash - both upper extremities Lymphatic: no adenopathy Departure - Departure Clinical Impression: Dermatitis Time of Disposition: 17:49 Disposition: Discharge to Home or Self Care Condition: Good Departure Forms: ED Discharge - Pt. Copy, Patient Portal Self Enrollment Referrals: Mikey Singh MD [Primary Care Provider] - 1-2 Weeks Prescriptions: hydrOXYzine HCl [Atarax] 25 mg PO TID PRN #30 tab PRN Reason: For Itching Prednisone 10 mg PO BID #14 sagar Home Medications: Ambulatory Orders Duloxetine HCl [Cymbalta] 60 mg PO BID #0 07/11/13 Sertraline HCl [Zoloft] 100 mg PO DAILY 12/13/14 Clonazepam 2 mg PO BID 05/04/16 Trazodone HCl 150 mg PO BEDTIME 08/04/16 Metaxalone 800 mg PO TID PRN #30 tab 08/15/16 Hydrocodone-Acetaminophen [[place] 5-325 mg] 1 tab PO PRN PRN 08/20/16 Prednisone 10 mg PO BID #14 sagar 09/20/16 hydrOXYzine HCl [Atarax] 25 mg PO TID PRN #30 tab 09/20/16 Additional Instructions: FOLLOW UP WITH PRIMARY MD 09/22/2016 call for appointment
[2016-09-20] MEDS ORDERED: hydrOXYzine HCl 50 MG/ML VIAL IM ONE (17:45)
[2016-09-20] MEDS ORDERED: DEXAMETHASONE INJ 4 MG/ML VIAL IM ONE (17:45)
[2016-09-20] MEDS ORDERED: predniSONE 20 MG TAB PO ONE (17:45)
[2016-09-20 18:35] VITALS: BP 127/78; TEMP 98.3; O2SAT 95
== END 2016-09-20 18:05 | disposition home or self-care (01) ==
LOC: ER 16:17
DX: L30.9 Dermatitis, unspecified (principal); G89.29 Other chronic pain; M54.9 Dorsalgia, unspecified; Z88.6 Allergy status to analgesic agent; Z88.2 Allergy status to sulfonamides; Z88.7 Allergy status to serum and vaccine; Z88.8 Allergy status to other drugs, medicaments and biological substances; Z79.899 Other long term (current) drug therapy
CPT/HCPCS: J1100; J3410; J7512

== ENCOUNTER → 2016-09-28 | Outpatient (CLI) | payer MEDICARE ==
--- NOTE | 2016-09-28 08:53 | RAD ---
EXAM DESCRIPTION: Clavicle,Left CLINICAL HISTORY: 56 years Female, CLAVICLE FX IMPRESSION: There is a transversely oriented mid diaphyseal left clavicular fracture. This is compared to September 17, 2016. There is been essentially no change when compared to prior. No definitive new callus formation is noted. The AC joint is unremarkable. Electronically signed by: Noam Brunson MD 09/28/2016 8:52 AM CDT
== END | disposition home or self-care (01) ==
LOC: RAD 08:19
PROVIDERS: ATTEND Orthopaedic Surgery
DX: S42.002A Fracture of unspecified part of left clavicle, initial encounter for closed fracture (principal); X58.XXXA Exposure to other specified factors, initial encounter

== ENCOUNTER 2016-10-04 11:46 | Emergency (ER) | payer MEDICARE ==
[2016-10-04] MEDS ORDERED: KETOROLAC TROMETHAMINE INJ 30 MG/ML VIAL IV ONE (12:10)
[2016-10-04] MEDS ORDERED: diazePAM INJ 10 MG/2 ML SYG IV ONE (12:10)
[2016-10-04] MEDS ORDERED: diphenhydrAMINE HCL 50 MG/ML VIAL IV ONE (12:11)
--- NOTE | 2016-10-04 12:13 | ED.PDOC ---
History of Present Illness - General Chief Complaint: Headache Stated Complaint: Migraine Time Seen by Provider: 10/04/16 11:56 Source: patient, RN notes reviewed, Vital Signs reviewed, family Exam Limitations: no limitations - History of Present Illness Initial Comments: Patient comes in with c/o a migraine TRIVEDI. Typical migraine for her. No new or concerning symptoms. TRIVEDI starts in the back of here head and goes forward over her whole head. Pain is 7.5/10. + photophobia and nausea. No weakness, numbness or tingling. Timing/Duration: 1-3 hours Quality: moderate, constant, throbbing Head Injury Location: global Recent Head Trauma: frequent headaches Improving Factors: other - Darkness Worsening Factors: other - Light and loud noise Associated Symptoms: nausea/vomiting Allergies/Adverse Reactions: Allergies Cephalexin [From Keflex] Allergy (Unknown, Verified 05/06/16 19:08) per physician order sheet Erythromycin Allergy (Verified 05/06/16 19:08) Orphenadrine [From K-Flex] Allergy (Verified 05/06/16 19:08) Prochlorperazine [From Compazine] Allergy (Verified 05/06/16 19:08) Sulfa Drugs Allergy (Verified 05/06/16 19:08) Tetanus Toxoid Allergy (Verified 05/06/16 19:08) mycins Allergy (Uncoded 05/06/16 19:08) Home Medications: Ambulatory Orders Duloxetine HCl [Cymbalta] 60 mg PO BID #0 07/11/13 Sertraline HCl [Zoloft] 100 mg PO DAILY 12/13/14 Clonazepam 2 mg PO BID 05/04/16 Trazodone HCl 150 mg PO BEDTIME 08/04/16 Metaxalone 800 mg PO TID PRN #30 tab 08/15/16 Hydrocodone-Acetaminophen [[place] 5-325 mg] 1 tab PO PRN PRN 08/20/16 Prednisone 10 mg PO BID #14 sagar 09/20/16 hydrOXYzine HCl [Atarax] 25 mg PO TID PRN #30 tab 09/20/16 Sumatriptan Succinate [Imitrex] 100 mg PO DAILY PRN #9 tab 10/04/16 Review of Systems - Review of Systems Constitutional: States: no symptoms reported. Denies: diaphoresis, fever, malaise, weakness EENTM: States: see HPI, other - Photophobia. Denies: eye pain, blurred vision, ear pain, nose congestion, throat pain Respiratory: States: no symptoms reported. Denies: short of breath Cardiology: States: no symptoms reported. Denies: chest pain Gastrointestinal/Abdominal: States: nausea. Denies: abdominal pain, vomiting Musculoskeletal: States: no symptoms reported Skin: States: no symptoms reported Neurological: States: see HPI, headache. Denies: numbness, paresthesia, seizure , tingling, weakness All other Systems: No Change from Baseline Past Medical History (General) - Patient Medical History Hx Seizures: Yes Hx Stroke: No Hx Dementia: No Hx Asthma: No Hx of COPD: No Hx Cardiac Disorders: No Hx Congestive Heart Failure: No Hx Pacemaker: No Hx Hypertension: No Hx Thyroid Disease: No Hx Diabetes: No Hx Gastroesophageal Reflux: No Hx Renal Disease: No Hx Cancer: No Hx of HIV: No Hx Hepatitis C: No Hx MRSA: No MRSA Source:: nasal - Vaccination History Hx Tetanus, Diphtheria Vaccination: No Hx Influenza Vaccination: No Hx Pneumococcal Vaccination: No - Social History Hx Tobacco Use: No Hx Chewing Tobacco Use: No Hx Alcohol Use: No Hx Substance Use: No Hx Substance Use Treatment: No Hx Depression: No Hx Physical Abuse: No Hx Emotional Abuse: No Hx Suspected Abuse: No - Female History Patient : No Family Medical History - Family History Mother Family History: No Known Living Status: Unknown Hx Family Asthma: No Hx Family;Other: pt unable to explain family history at this time Physical Exam - Physical Exam General Appearance: Alert, Well Developed, Well Groomed, Well Hydrated, Well Nourished, Other - In obvious pain Neck: non-tender, full range of motion, supple, normal inspection Cardiovascular/Chest: regular rate, rhythm, no gallop, no JVD, no murmur Respiratory: lungs clear, normal breath sounds, no respiratory distress, no accessory muscle use Extremity: normal range of motion, normal inspection Mental Status: alert, oriented x 3 hotel clerk Exam: normal hearing, normal speech Motor/Sensory: no motor deficit, no sensory deficit Skin Exam: warm/dry, normal color Progress - Progress Progress: 10/04/16 13:53 Patient still reporting no improvement in her headache. Imitrex helped briefly but TRIVEDI returned. She is allergic to Morphine. Will give a L of NS bolus. 10/04/16 14:13 Patient is requesting Dilaudid but has a documented Morphine allergy in chart. Not going to give her IV opiod with documented allergy. 10/04/16 14:23 Patient reporting she is NOT allergic to Morphine. Review of her chart does show she received Dilaudid in 02/2016 for a migraine. She is still nauseated so will give Phenergan and Dilaudid since nothing else is working for her. 10/04/16 15:15 She is feeling much better. Just a mild, dull TRIVEDI. Would like to go home. Departure - Departure Clinical Impression: Migraine Qualifiers: Migraine type: without aura Status migrainosus presence: without status migrainosus Intractability: not intractable Qualified Code(s): G43.009 - Migraine without aura, not intractable, without status migrainosus Time of Disposition: 15:17 Disposition: Discharge to Home or Self Care Condition: Good Instructions: DI for Migraine, Migraine Headaches (Alternative Therapy) Diet: resume usual diet Activity: increase activity as tolerated Referrals: Mikey Singh MD [Primary Care Provider] - 1-2 Weeks Prescriptions: Sumatriptan Succinate [Imitrex] 100 mg PO DAILY PRN #9 tab PRN Reason: Headache/Migraine Pain Home Medications: Ambulatory Orders Duloxetine HCl [Cymbalta] 60 mg PO BID #0 07/11/13 Sertraline HCl [Zoloft] 100 mg PO DAILY 12/13/14 Clonazepam 2 mg PO BID 05/04/16 Trazodone HCl 150 mg PO BEDTIME 08/04/16 Metaxalone 800 mg PO TID PRN #30 tab 08/15/16 Hydrocodone-Acetaminophen [[place] 5-325 mg] 1 tab PO PRN PRN 08/20/16 Prednisone 10 mg PO BID #14 sagar 09/20/16 hydrOXYzine HCl [Atarax] 25 mg PO TID PRN #30 tab 09/20/16 Sumatriptan Succinate [Imitrex] 100 mg PO DAILY PRN #9 tab 10/04/16
[2016-10-04] MEDS ORDERED: ONDANSETRON INJ 4 MG/2 ML VIAL IV ONE (12:16)
[2016-10-04] MEDS ORDERED: SUMAtriptan SUCCINATE INJ 6 MG/0.5 ML VIAL SUBCU ONE (13:20)
[2016-10-04] MEDS ORDERED: SODIUM CHLORIDE 0.9% 1000ML 1,000 ML IVS ONE (13:52)
[2016-10-04] MEDS ORDERED: CYCLOBENZAPRINE HCL 10 MG TAB PO ONE (13:52)
[2016-10-04] MEDS ORDERED: HYDROmorphone HCL INJ 2 MG/ML VIAL IV ONE (14:25)
[2016-10-04] MEDS ORDERED: PROMETHAZINE HCL INJ 25 MG in SODIUM CHLORIDE 0.9% 50ML 50 ML IVPB ONE (14:25)
[2016-10-04] MEDS ORDERED: PROMETHAZINE HCL INJ 25 MG/ML VIAL ONE (14:29)
[2016-10-04] MEDS ORDERED: SODIUM CHLORIDE 0.9% 50ML 50 ML ONE (14:30)
[2016-10-04 19:17] VITALS: BP 112/57; O2SAT 94
== END 2016-10-04 13:38 | disposition home or self-care (01) ==
LOC: ER 11:46
DX: G43.009 Migraine without aura, not intractable, without status migrainosus (principal); R56.9 Unspecified convulsions; Z79.899 Other long term (current) drug therapy; Z88.7 Allergy status to serum and vaccine; Z88.2 Allergy status to sulfonamides; Z88.8 Allergy status to other drugs, medicaments and biological substances; Z88.1 Allergy status to other antibiotic agents
CPT/HCPCS: A4216; J1170; J1200; J1885; J2405; J2550; J3030; J3360; J7030

== ENCOUNTER 2016-10-16 10:46 | Emergency (ER) | payer MEDICARE ==
[2016-10-16 11:11] VITALS: TEMP 98.9; O2SAT 96
[2016-10-16] MEDS: SODIUM CHLORIDE 0.9% (FLUSH) 10 ML SYG IV PRN (11:25)
--- NOTE | 2016-10-16 11:32 | CT ---
EXAM DESCRIPTION: Head CLINICAL HISTORY: possible stroke COMPARISON: August 13, 2016 TECHNIQUE: Noncontrast transaxial CT images of the head are obtained from base to vertex. This exam was performed according to our departmental dose-optimization program, which includes automated exposure control, adjustment of the mA and/or kV according to patient size and/or use of iterative reconstruction technique. FINDINGS: The midline structures are not displaced. The sulci are age appropriate. The lateral, third, and fourth ventricles are normal in size, shape, and anatomic positioning. There is no evidence of mass, mass effect, hydrocephalus, or acute intracranial hemorrhage. No abnormal extra axial fluid collections are seen. Normal doran-white differentiation is seen. The visualized bone windows show no depressed skull fracture or significant abnormality. The visualized paranasal sinuses and mastoid air cells are clear. IMPRESSION: 1. No acute abnormality is seen on noncontrast CT of the head. Findings on this exam were called to Dr. Jane at 1130 hours on October 16, 2016.. Electronically signed by: Álvaro Garcia MD 10/16/2016 11:30 AM CDT
[2016-10-16] MEDS ORDERED: SODIUM CHLORIDE 0.9% 50ML 50 ML ONE (12:12)
[2016-10-16] MEDS ORDERED: PROMETHAZINE HCL INJ 25 MG/ML VIAL ONE (12:12)
[2016-10-16] MEDS: SODIUM CHLORIDE 0.9% 1000ML 1,000 ML IVS ONE (12:21)
[2016-10-16] MEDS: PROMETHAZINE HCL INJ 12.5 MG in SODIUM CHLORIDE 0.9% 50ML 50 ML IVPB ONE (12:21)
[2016-10-16] MEDS: KETOROLAC TROMETHAMINE INJ 30 MG/ML VIAL IV ONE (12:21)
[2016-10-16] MEDS: diphenhydrAMINE HCL 50 MG/ML VIAL IV ONE (12:26)
[2016-10-16] MEDS: METOCLOPRAMIDE HCL INJ 10 MG/2 ML VIAL IV ONE (13:38)
--- NOTE | 2016-10-16 14:15 | ED.PDOC ---
History of Present Illness - General Chief Complaint: General Stated Complaint: Spouse reports sudden weakness Time Seen by Provider: 10/16/16 11:15 Source: patient, family Exam Limitations: clinical condition - History of Present Illness Initial Comments: PT IS A 56 YO FEMALE WHO PRESENTS WITH WITH COMPLAINT OF SUDDEN ONSET OF STROKE LIKE SYMPTOMS @ 0930 TO INCLUDE, SLURRED SPEECH, L FACIAL DROOP, LEFT UPPER AND LEFT LOWER EXTREMITY WEAKNESS. PT ALSO COMPLAINS OF ONSET OF SEVERE HEADACHE EN ROUTE TO THE HOSPITAL THAT IS TYPICAL OF MIGRAINES PT HAS HAD IN THE PAST. PT REPORTS STARTING IMITREX YESTERDAY FOR THE FIRST TIME. Timing/Duration: 1-3 hours Severity: moderate Improving Factors: nothing Worsening Factors: nothing Associated Symptoms: headaches, nausea/vomiting Allergies/Adverse Reactions: Allergies Cephalexin [From Keflex] Allergy (Unknown, Verified 05/06/16 19:08) per physician order sheet Erythromycin Allergy (Verified 05/06/16 19:08) Orphenadrine [From K-Flex] Allergy (Verified 05/06/16 19:08) Prochlorperazine [From Compazine] Allergy (Verified 05/06/16 19:08) Sulfa Drugs Allergy (Verified 05/06/16 19:08) Tetanus Toxoid Allergy (Verified 05/06/16 19:08) mycins Allergy (Uncoded 05/06/16 19:08) Home Medications: Ambulatory Orders Duloxetine HCl [Cymbalta] 60 mg PO BID #0 07/11/13 Sertraline HCl [Zoloft] 100 mg PO DAILY 12/13/14 Clonazepam 2 mg PO BID 05/04/16 Trazodone HCl 150 mg PO BEDTIME 08/04/16 Metaxalone 800 mg PO TID PRN #30 tab 08/15/16 Hydrocodone-Acetaminophen [[place] 5-325 mg] 1 tab PO PRN PRN 08/20/16 Prednisone 10 mg PO BID #14 sagar 09/20/16 hydrOXYzine HCl [Atarax] 25 mg PO TID PRN #30 tab 09/20/16 Sumatriptan Succinate [Imitrex] 100 mg PO DAILY PRN #9 tab 10/04/16 Gfsehyzhsgmwy-Olfz-Aslqukkjmj [Fioricet] 1 - 2 ea PO Q6HR PRN #20 tab 10/16/16 Ibuprofen 800 mg PO Q8HR PRN #30 tab 10/16/16 Promethazine Tab [Phenergan Tablet] 25 mg PO Q6H PRN #15 tab 10/16/16 Review of Systems - Review of Systems Constitutional: Denies: chills, fever EENTM: Denies: blurred vision, double vision Respiratory: Denies: cough, short of breath Cardiology: Denies: chest pain, palpitations Gastrointestinal/Abdominal: States: nausea. Denies: diarrhea, vomiting Genitourinary: Denies: dysuria, hematuria Musculoskeletal: Denies: joint pain, joint swelling Skin: Denies: change in color, dryness Neurological: States: headache, weakness. Denies: paresthesia Endocrine: Denies: intolerance to cold, intolerance to heat Hematologic/Lymphatic: Denies: anemia, easy bleeding Past Medical History (General) - Patient Medical History Hx Seizures: Yes - pseudoseizures Hx Stroke: No Hx Dementia: No Hx Asthma: No Hx of COPD: No Hx Cardiac Disorders: No Hx Congestive Heart Failure: No Hx Pacemaker: No Hx Hypertension: No Hx Thyroid Disease: No Hx Diabetes: No Hx Gastroesophageal Reflux: No Hx Renal Disease: No Hx Cancer: No Hx of HIV: No Hx Hepatitis C: No Hx MRSA: No Hx Other - free text: MIGRAINE HEADACHES MRSA Source:: nasal - Vaccination History Hx Tetanus, Diphtheria Vaccination: No Hx Influenza Vaccination: No Hx Pneumococcal Vaccination: No - Social History Hx Tobacco Use: No Hx Chewing Tobacco Use: No Hx Alcohol Use: No Hx Substance Use: No Hx Substance Use Treatment: No Hx Depression: No Hx Physical Abuse: No Hx Emotional Abuse: No Hx Suspected Abuse: No - Female History Patient : No Family Medical History - Family History Mother Family History: No Known Living Status: Unknown Hx Family Asthma: No Hx Family;Other: pt unable to explain family history at this time Physical Exam - Physical Exam General Appearance: Well Developed, Well Groomed, Well Hydrated, Other - PT APPEARS SOMNOLENT BUT OPENS EYES WHEN NAME IS CALLED. PT ANSWERING SOME QUESTIONS, HOWEVER IGNORES QUESTIONING AT TIMES. Eye Exam: bilateral normal Ears, Nose, Throat: normal ENT inspection Neck: full range of motion, normal inspection Respiratory: chest non-tender, lungs clear, normal breath sounds, no respiratory distress Cardiovascular/Chest: regular rate, rhythm, no edema, no murmur Gastrointestinal/Abdominal: non tender, soft Back Exam: normal inspection Neurologic: oriented x 3, facial droop - LEFT, motor weakness - LUE/LLE WEAKNESS , other - SLURRED SPEECH Skin Exam: normal color, warm/dry Progress - Progress Progress: 10/16/16 1340: PT SITTING UP ON COMMODE WITH NORMAL SPEECH, REPORTS NO IMPROVEMENT IN HEADACHE AFTER PHENERGAN, TORADOL, BENADRYL. REQUESTS DILAUDID. I EXPLAINED THAT NARCOTICS SUCH DILAUDID ARE NOT INDICATED FOR MIGRAINE HEADACHES AND CAUSE SEVERE REBOUND HEADACHES TO OCCUR. IV REGLAN ORDERED. 10/16/16 14:22 PT REPORTS RESOLUTION OF WEAKNESS AND HAS RESOLUTION OF SLURRED SPEECH, PT REPORTS HEADACHE NOT IMPROVED BUT IS REQUESTING DISCHARGE HOME. - Results/Orders Results/Orders: 10/16/16 11:15 IV Care:Saline Lock per Protoc QSHIFT Telemetry .ONCE Sodium Chloride 0.9% (Flush) [Saline Flush Syringe] 10 ml IV PRN PRN EKG STAT 10/17/16 11:15 EKG STAT Laboratory Results - last 24 hr 10/16/16 10/16/16 10/16/16 11:53 11:53 11:53 WBC 6.4 RBC 4.13 L Hgb 12.5 Hct 37.3 MCV 90.4 MCH 30.2 MCHC 33.4 RDW 13.9 Plt Count 221 MPV 8.5 Absolute Neuts (auto) 4.00 Absolute Lymphs (auto) 1.80 Absolute Monos (auto) 0.50 Absolute Eos (auto) 0.00 Absolute Basos (auto) 0.00 Neutrophils % 62.8 Lymphocytes % 28.3 Monocytes % 8.1 Eosinophils % 0.3 L Basophils % 0.5 PT 11.2 INR 0.990 PTT (SP) 28.7 Sodium 140 Potassium 4.2 Chloride 105 Carbon Dioxide 24 Anion Gap 15.2 BUN 15 Creatinine 0.61 BUN/Creatinine Ratio 24.6 H POC Glucose Random Glucose 81 Serum Osmolality 279.3 Calcium 9.2 Total Bilirubin 0.3 AST 25 ALT 19 Alkaline Phosphatase 58 Creatine Kinase 71 CK-MB (CK-2) 1.2 CK-MB (CK-2) % Not Reportable Troponin I < 0.02 Serum Total Protein 6.6 Albumin 3.9 Globulin 2.7 Albumin/Globulin Ratio 1.4 10/16/16 11:53 WBC RBC Hgb Hct MCV MCH MCHC RDW Plt Count MPV Absolute Neuts (auto) Absolute Lymphs (auto) Absolute Monos (auto) Absolute Eos (auto) Absolute Basos (auto) Neutrophils % Lymphocytes % Monocytes % Eosinophils % Basophils % PT INR PTT (SP) Sodium Potassium Chloride Carbon Dioxide Anion Gap BUN Creatinine BUN/Creatinine Ratio POC Glucose 80 Random Glucose Serum Osmolality Calcium Total Bilirubin AST ALT Alkaline Phosphatase Creatine Kinase CK-MB (CK-2) CK-MB (CK-2) % Troponin I Serum Total Protein Albumin Globulin Albumin/Globulin Ratio - EKG/XRAY/CT CT Ordered: Yes CT Interpretation Call Back: Yes - REPORTED NEGATIVE PER RAD CT Interpretation Call Back Date: 10/16/16 CT Interpretation Call Back Time: 13:00 Departure - Departure Clinical Impression: Migraine, Weakness Time of Disposition: 14:24 Disposition: Discharge to Home or Self Care Condition: Fair Departure Forms: ED Discharge - Pt. Copy, Patient Portal Self Enrollment Instructions: DI for Migraine Diet: resume usual diet Activity: increase activity as tolerated Referrals: Mikey Singh MD [Primary Care Provider] - 1-2 Weeks Prescriptions: Qdzgqamxwymlj-Grhg-Ceqrruuyuf [Fioricet] 1 - 2 ea PO Q6HR PRN #20 tab PRN Reason: Headache/Migraine Pain Ibuprofen 800 mg PO Q8HR PRN #30 tab PRN Reason: Pain Promethazine Tab [Phenergan Tablet] 25 mg PO Q6H PRN #15 tab PRN Reason: Nausea/Vomiting Home Medications: Ambulatory Orders Duloxetine HCl [Cymbalta] 60 mg PO BID #0 07/11/13 Sertraline HCl [Zoloft] 100 mg PO DAILY 12/13/14 Clonazepam 2 mg PO BID 05/04/16 Trazodone HCl 150 mg PO BEDTIME 08/04/16 Metaxalone 800 mg PO TID PRN #30 tab 08/15/16 Hydrocodone-Acetaminophen [[place] 5-325 mg] 1 tab PO PRN PRN 08/20/16 Prednisone 10 mg PO BID #14 sagar 09/20/16 hydrOXYzine HCl [Atarax] 25 mg PO TID PRN #30 tab 09/20/16 Sumatriptan Succinate [Imitrex] 100 mg PO DAILY PRN #9 tab 10/04/16 Dkbqewoafihef-Kemd-Ffhbpqqixl [Fioricet] 1 - 2 ea PO Q6HR PRN #20 tab 10/16/16 Ibuprofen 800 mg PO Q8HR PRN #30 tab 10/16/16 Promethazine Tab [Phenergan Tablet] 25 mg PO Q6H PRN #15 tab 10/16/16
[2016-10-16 14:46] VITALS: BP 98/54
== END 2016-10-16 14:25 | disposition home or self-care (01) ==
LOC: ER 10:46
DX: G43.909 Migraine, unspecified, not intractable, without status migrainosus (principal); R53.1 Weakness; R47.81 Slurred speech; Z88.2 Allergy status to sulfonamides; Z88.3 Allergy status to other anti-infective agents; Z88.7 Allergy status to serum and vaccine; Z79.899 Other long term (current) drug therapy

== ENCOUNTER 2016-10-19 11:26 | Emergency (ER) | payer MEDICARE ==
--- NOTE | 2016-10-19 12:02 | ED.PDOC ---
History of Present Illness - General Chief Complaint: Abdominal Pain Stated Complaint: abdominal pain x 3 days Time Seen by Provider: 10/19/16 11:54 Source: patient Exam Limitations: no limitations - History of Present Illness Initial Comments: Patient presents with three days of abdominal pain. Pain is band-like across the anterior abdomen. Constant, but intermittent in intensity. Last bm was two hours ago. She says that she has had blood in her bowel movements. She says she thinks that it is appendicitis. She has a hx of "kidney stones" and says that she has chronic hematuria. No N/V. No other complaints. Timing/Duration: other - three days Severity: moderate Improving Factors: rest Worsening Factors: movement Associated Symptoms: denies symptoms Allergies/Adverse Reactions: Allergies Cephalexin [From Keflex] Allergy (Unknown, Verified 10/19/16 11:37) per physician order sheet Erythromycin Allergy (Verified 10/19/16 11:37) Orphenadrine [From K-Flex] Allergy (Verified 10/19/16 11:37) Prochlorperazine [From Compazine] Allergy (Verified 10/19/16 11:37) Sulfa Drugs Allergy (Verified 10/19/16 11:37) Tetanus Toxoid Allergy (Verified 10/19/16 11:37) mycins Allergy (Uncoded 10/19/16 11:37) Home Medications: Ambulatory Orders Duloxetine HCl [Cymbalta] 60 mg PO BID #0 07/11/13 Sertraline HCl [Zoloft] 100 mg PO DAILY 12/13/14 Clonazepam 2 mg PO BID 05/04/16 Trazodone HCl 150 mg PO BEDTIME 08/04/16 Metaxalone 800 mg PO TID PRN #30 tab 08/15/16 Hydrocodone-Acetaminophen [[place] 5-325 mg] 1 tab PO PRN PRN 08/20/16 Prednisone 10 mg PO BID #14 sagar 09/20/16 hydrOXYzine HCl [Atarax] 25 mg PO TID PRN #30 tab 09/20/16 Sumatriptan Succinate [Imitrex] 100 mg PO DAILY PRN #9 tab 10/04/16 Xgrbzevbewoyt-Txdw-Nhmahbwlba [Fioricet] 1 - 2 ea PO Q6HR PRN #20 tab 10/16/16 Ibuprofen 800 mg PO Q8HR PRN #30 tab 10/16/16 Promethazine Tab [Phenergan Tablet] 25 mg PO Q6H PRN #15 tab 10/16/16 Review of Systems - Review of Systems Constitutional: States: no symptoms reported EENTM: States: no symptoms reported Respiratory: States: no symptoms reported Cardiology: States: no symptoms reported Gastrointestinal/Abdominal: States: see HPI Genitourinary: States: see HPI Musculoskeletal: States: no symptoms reported Skin: States: no symptoms reported Neurological: States: no symptoms reported Endocrine: States: no symptoms reported Hematologic/Lymphatic: States: no symptoms reported Past Medical History (General) - Patient Medical History Hx Seizures: Yes - pseudoseizures Hx Stroke: No Hx Dementia: No Hx Asthma: No Hx of COPD: No Hx Cardiac Disorders: No Hx Congestive Heart Failure: No Hx Pacemaker: No Hx Hypertension: No Hx Thyroid Disease: No Hx Diabetes: No Hx Gastroesophageal Reflux: No Hx Renal Disease: No Hx Cancer: No Hx of HIV: No Hx Hepatitis C: No Hx MRSA: No MRSA Source:: nasal - Vaccination History Hx Tetanus, Diphtheria Vaccination: No Hx Influenza Vaccination: No Hx Pneumococcal Vaccination: No - Social History Hx Tobacco Use: No Hx Chewing Tobacco Use: No Hx Alcohol Use: No Hx Substance Use: No Hx Substance Use Treatment: No Hx Depression: No Hx Physical Abuse: No Hx Emotional Abuse: No Hx Suspected Abuse: No - Female History Patient : No Family Medical History - Family History Mother Family History: No Known Living Status: Unknown Hx Family Asthma: No Hx Family;Other: pt unable to explain family history at this time Physical Exam - Physical Exam General Appearance: Alert Respiratory: lungs clear Cardiovascular/Chest: normal peripheral pulses, regular rate, rhythm Gastrointestinal/Abdominal: normal bowel sounds, non tender, soft Back Exam: no CVA tenderness Skin Exam: normal color Progress - Progress Progress: 10/19/16 15:19 CT of abdomen/pelvis showed diarrhea. Patient improved on toradol IM and GI cocktail. She also received NS one liter IV x one. Departure - Departure Clinical Impression: Diarrhea Disposition: Discharge to Home or Self Care Condition: Good Departure Forms: ED Discharge - Pt. Copy, Patient Portal Self Enrollment Instructions: DI for Abdominal Pain-Adult Diet: resume usual diet Activity: increase activity as tolerated Referrals: Mikey Singh MD [Primary Care Provider] - 1-2 Weeks Home Medications: Ambulatory Orders Duloxetine HCl [Cymbalta] 60 mg PO BID #0 07/11/13 Sertraline HCl [Zoloft] 100 mg PO DAILY 12/13/14 Clonazepam 2 mg PO BID 05/04/16 Trazodone HCl 150 mg PO BEDTIME 08/04/16 Metaxalone 800 mg PO TID PRN #30 tab 08/15/16 Hydrocodone-Acetaminophen [[place] 5-325 mg] 1 tab PO PRN PRN 08/20/16 Prednisone 10 mg PO BID #14 sagar 09/20/16 hydrOXYzine HCl [Atarax] 25 mg PO TID PRN #30 tab 09/20/16 Sumatriptan Succinate [Imitrex] 100 mg PO DAILY PRN #9 tab 10/04/16 Duhgewybebitj-Cyla-Apzyxnjtgm [Fioricet] 1 - 2 ea PO Q6HR PRN #20 tab 10/16/16 Ibuprofen 800 mg PO Q8HR PRN #30 tab 10/16/16 Promethazine Tab [Phenergan Tablet] 25 mg PO Q6H PRN #15 tab 10/16/16 Additional Instructions: Use Immodium AD as directed. Increase oral fluids.
[2016-10-19 12:06] VITALS: TEMP 97
[2016-10-19 13:34] VITALS: O2SAT 99
--- NOTE | 2016-10-19 13:34 | CT ---
EXAM DESCRIPTION: CT abdomen and pelvis with contrast CLINICAL HISTORY: Abdomen pain COMPARISON: 08/13/2016 TECHNIQUE: Contrast-enhanced spiral CT with coronal and sagittal reformatted images. This exam was performed according to our departmental dose-optimization program, which includes automated exposure control, adjustment of the mA and/or kV according to patient size and/or use of iterative reconstruction technique. FINDINGS: Moderate amount stool in the sigmoid colon. There is fluid and stool in the descending, transverse and descending colon consistent with diarrhea. There is no mass lesion or focal inflammatory process. Terminal ileum and appendix are normal No diagnostic abnormality of small intestine or stomach Visualized lung bases are clear. Heart size is normal No abnormality of the liver, spleen, gallbladder, pancreas, adrenal glands or kidneys No mass lesion of the omentum, small bowel mesentery or retroperitoneum. No pelvic soft tissue mass lesion, adenopathy or free fluid Postsurgical change lumbar spine. No diagnostic acute bony abnormality IMPRESSION: Fluid and stool in the large intestine consistent with diarrhea without a mass lesion or focal inflammatory process Electronically signed by: Vladislav Blackburn MD 10/19/2016 1:33 PM CDT
[2016-10-19] MEDS ORDERED: KETOROLAC TROMETHAMINE INJ 30 MG/ML VIAL IM ONE (13:44)
[2016-10-19] MEDS ORDERED: LIDOCAINE VIS-MYLANTA 30 ML UD PO ONE (13:44)
[2016-10-19] MEDS ORDERED: KETOROLAC TROMETHAMINE INJ 30 MG/ML VIAL IV ONE (13:55)
[2016-10-19] MEDS ORDERED: SODIUM CHLORIDE 0.9% 1000ML 1,000 ML IVS PRN (13:59)
[2016-10-19 15:39] VITALS: BP 111/64
== END 2016-10-19 15:30 | disposition home or self-care (01) ==
LOC: ER 11:26
DX: R19.7 Diarrhea, unspecified (principal); Z87.442 Personal history of urinary calculi; Z88.3 Allergy status to other anti-infective agents; Z88.2 Allergy status to sulfonamides; Z88.7 Allergy status to serum and vaccine; Z79.899 Other long term (current) drug therapy
CPT/HCPCS: 36415; 74177; 80053; 80307; 81001; 83690; 85025; J1885; J7030

== ENCOUNTER → 2016-11-02 | Outpatient (CLI) | payer MEDICARE ==
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
== END | disposition home or self-care (01) ==
LOC: RAD 08:54
PROVIDERS: ATTEND Orthopaedic Surgery
DX: S42.002D Fracture of unspecified part of left clavicle, subsequent encounter for fracture with routine healing (principal)

== ENCOUNTER → 2016-11-16 | Outpatient (CLI) | payer MEDICARE | LOC: AMB 08:00 → EDSTATUS 09:00 | PROVIDERS: ATTEND Orthopaedic Surgery | DX: Z01.812 Encounter for preprocedural laboratory examination (principal) ==

== ENCOUNTER 2016-11-18 14:36 | Emergency (ER) | payer MEDICARE ==
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
[2016-11-18] MEDS ORDERED: HYDROcodone 10MG/APAP 325MG 1 EA TAB PO ONE (16:44)
[2016-11-18 18:14] VITALS: O2SAT 98
[2016-11-18 18:29] VITALS: BP 118/74; TEMP 98.5
== END 2016-11-18 18:28 | disposition short-term general hospital (02) ==
LOC: ER 14:36
DX: R20.0 Anesthesia of skin (principal); M79.622 Pain in left upper arm; Z79.899 Other long term (current) drug therapy; Z88.2 Allergy status to sulfonamides; Z88.7 Allergy status to serum and vaccine; Z88.3 Allergy status to other anti-infective agents; Z88.8 Allergy status to other drugs, medicaments and biological substances

== ENCOUNTER → 2016-11-18 | Outpatient (CLI) | payer MEDICARE ==
--- NOTE | 2016-11-18 17:17 | RAD ---
EXAM DESCRIPTION: Clavicle,Left CLINICAL HISTORY: 56 years Female, FX OF [place] COMPARISON: November 02, 2016 FINDINGS: An oblique displaced fracture just medial to the mid left clavicle is present with very little bridging callus formation and bony union is not apparent with no significant change in alignment and appearance in comparison to prior studies. Injuries or change in alignment or disruption of the AC joint is not apparent. The chest wall is otherwise intact. Compared to examinations extending back to August 2016 the margins of the fracture lines are slightly less distinct but mature bony callus formation or healing is not yet apparent. Very slightly greater displacement and distraction is evident in comparison to prior August studies. No significant change from most recent examination is noted. IMPRESSION: Displaced incompletely healed clavicular fracture just proximal to its midpoint with little change from most recent study. Electronically signed by: Vladislav Angeles MD 11/18/2016 5:16 PM CDT
== END | disposition home or self-care (01) ==
LOC: RAD 08:22
PROVIDERS: ATTEND Orthopaedic Surgery
DX: S42.022G Displaced fracture of shaft of left clavicle, subsequent encounter for fracture with delayed healing (principal); X58.XXXA Exposure to other specified factors, initial encounter

== ENCOUNTER → 2016-12-24 | Outpatient (CLI) | payer MEDICARE | END | disposition home or self-care (01) | LOC: LAB.O 14:48 | PROVIDERS: ATTEND Orthopaedic Surgery | DX: S42.022K Displaced fracture of shaft of left clavicle, subsequent encounter for fracture with nonunion (principal) ==

== ENCOUNTER 2017-05-01 12:22 | Emergency (ER) | payer MEDICARE ==
[2017-05-01 12:54] VITALS: BP 103/69; TEMP 97.8; O2SAT 98
--- NOTE | 2017-05-01 13:04 | ED.PDOC ---
History of Present Illness - General Chief Complaint: Behavioral / Psych Stated Complaint: anxiety, vertigo and nausea Time Seen by Provider: 05/01/17 13:01 Source: patient Exam Limitations: no limitations - History of Present Illness Initial Comments: The patient is a 56-year-old female presenting to the emergency room secondary to agitation and anxiety as well as some insomnia secondary to coming off of her Cymbalta. She has apparently been on a very high dose of Cymbalta for a very long time. She has been trying to use Ultravate was referred to Prozac and Xanax yesterday. She is still feeling agitated. No suicidal or homicidal ideation. No sweating. No fever.mild malaise. Timing/Duration: unsure Severity: moderate Improving Factors: nothing Worsening Factors: nothing Associated Symptoms: malaise Allergies/Adverse Reactions: Allergies Cephalexin [From Keflex] Allergy (Unknown, Verified 05/01/17 12:54) per physician order sheet Erythromycin Allergy (Verified 05/01/17 12:54) Orphenadrine [From K-Flex] Allergy (Verified 05/01/17 12:54) Prochlorperazine [From Compazine] Allergy (Verified 05/01/17 12:54) Sulfa Drugs Allergy (Verified 05/01/17 12:54) Tetanus Toxoid Allergy (Verified 05/01/17 12:54) mycins Allergy (Uncoded 05/01/17 12:54) Home Medications: Ambulatory Orders Duloxetine HCl [Cymbalta] 60 mg PO BID #0 07/11/13 Sertraline HCl [Zoloft] 100 mg PO DAILY 12/13/14 Clonazepam 2 mg PO BID 05/04/16 Trazodone HCl 150 mg PO BEDTIME 08/04/16 Metaxalone 800 mg PO TID PRN #30 tab 08/15/16 Hydrocodone-Acetaminophen [[place] 5-325 mg] 1 tab PO PRN PRN 08/20/16 Sumatriptan Succinate [Imitrex] 100 mg PO DAILY PRN #9 tab 10/04/16 Qkyohgnyjuytf-Jhrb-Ohqxcawcsd [Fioricet] 1 - 2 ea PO Q6HR PRN #20 tab 10/16/16 Ibuprofen 800 mg PO Q8HR PRN #30 tab 10/16/16 DULoxetine HCL [Cymbalta] 20 mg PO DAILY #15 cap 05/01/17 Review of Systems - Review of Systems Constitutional: States: malaise EENTM: States: no symptoms reported Respiratory: States: no symptoms reported Cardiology: States: no symptoms reported Gastrointestinal/Abdominal: States: nausea Genitourinary: States: no symptoms reported Musculoskeletal: States: no symptoms reported Skin: States: no symptoms reported Neurological: States: anxiety Endocrine: States: no symptoms reported All other Systems: No Change from Baseline Past Medical History (General) - Patient Medical History Hx Seizures: Yes - pseudoseizures Hx Stroke: No Hx Dementia: No Hx Asthma: No Hx of COPD: No Hx Cardiac Disorders: No Hx Congestive Heart Failure: No Hx Pacemaker: No Hx Hypertension: No Hx Thyroid Disease: No Hx Diabetes: No Hx Gastroesophageal Reflux: No Hx Renal Disease: No Hx Cancer: No Hx of HIV: No Hx Hepatitis C: No Hx MRSA: No MRSA Source:: nasal Surgical History: Hysterectomy - Vaccination History Hx Tetanus, Diphtheria Vaccination: No Hx Influenza Vaccination: No Hx Pneumococcal Vaccination: No - Social History Hx Tobacco Use: No Hx Chewing Tobacco Use: No Hx Alcohol Use: No Hx Substance Use: No Hx Substance Use Treatment: No Hx Depression: No Hx Physical Abuse: No Hx Emotional Abuse: No Hx Suspected Abuse: No - Female History Patient is a Female of Child Bearing Age (10 -59 yrs old): No Patient : No Family Medical History - Family History Mother Family History: No Known Living Status: Unknown Hx Family Asthma: No Hx Family;Other: pt unable to explain family history at this time Physical Exam - Physical Exam General Appearance: Alert - this should, Anxious, No apparent distress Eye Exam: bilateral normal Ears, Nose, Throat: hearing grossly normal, normal ENT inspection, normal pharynx Neck: full range of motion Respiratory: no respiratory distress, no accessory muscle use Cardiovascular/Chest: normal peripheral pulses, no edema Peripheral Pulses: radial,right: 2+, radial,left: 2+, dorsalis pedis,right: 2+, dorsalis pedis,left: 2+ Rectal Exam: deferred Extremity: normal range of motion, normal inspection, no pedal edema, normal capillary refill 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 I'm going to write the patient for 15 tablets of the 30 mg Cymbalta to space out to every 3-7 days over the course of the next couple of months. She can continue her Prozac and Xanax as needed. She needs to keep herself well hydrated. She is to follow-up with her primary care doctor and psychiatry. ER warnings were given. Departure - Departure Clinical Impression: Psychological stress Medication withdrawal Qualifiers: Substance type: other psychoactive substance Qualified Code(s): F19.939 - Other psychoactive substance use, unspecified with withdrawal, unspecified Disposition: Discharge to Home or Self Care Condition: Fair Departure Forms: ED Discharge - Pt. Copy, Patient Portal Self Enrollment Instructions: DI for Anxiety -- Adult, Depression Diet: regular diet Activity: increase activity as tolerated Referrals: Mikey Singh MD [Primary Care Provider] - 1-2 Weeks Prescriptions: DULoxetine HCL [Cymbalta] 20 mg PO DAILY #15 cap Home Medications: Ambulatory Orders Duloxetine HCl [Cymbalta] 60 mg PO BID #0 07/11/13 Sertraline HCl [Zoloft] 100 mg PO DAILY 12/13/14 Clonazepam 2 mg PO BID 05/04/16 Trazodone HCl 150 mg PO BEDTIME 08/04/16 Metaxalone 800 mg PO TID PRN #30 tab 08/15/16 Hydrocodone-Acetaminophen [[place] 5-325 mg] 1 tab PO PRN PRN 08/20/16 Sumatriptan Succinate [Imitrex] 100 mg PO DAILY PRN #9 tab 10/04/16 Obcuamxeughgt-Mptf-Panodyzojr [Fioricet] 1 - 2 ea PO Q6HR PRN #20 tab 10/16/16 Ibuprofen 800 mg PO Q8HR PRN #30 tab 10/16/16 DULoxetine HCL [Cymbalta] 20 mg PO DAILY #15 cap 05/01/17 Additional Instructions: the patient is a 56-year-old female presenting to the emergency room secondary to agitation and anxiety that may very well be related to Cymbalta withdrawal. I'm going to write the patient for 15 tablets of the 30 mg Cymbalta to space out to every 3-7 days over the course of the next couple of months. She can continue her Prozac and Xanax as needed. She needs to keep herself well hydrated. She is to follow-up with her primary care doctor and psychiatry. ER warnings were given.
== END 2017-05-01 13:27 | disposition home or self-care (01) ==
LOC: ER 12:22
DX: F19.939 Other psychoactive substance use, unspecified with withdrawal, unspecified (principal); F43.8 Other reactions to severe stress

== ENCOUNTER 2017-05-02 13:11 | Emergency (ER) | payer MEDICARE ==
--- NOTE | 2017-05-02 13:25 | ED.PDOC ---
History of Present Illness - General Chief Complaint: Neuro Symptoms/Deficits Time Seen by Provider: 05/02/17 13:21 Source: family Exam Limitations: other Additional Information: 56 YEAR OLD BROUGHT BY HER FOR EVALUATION OF SEIZURES SHE APPARENTLY GOING THRU WITHDRAWAL FROM ANTIDEPRESSANT CYMBALTA SSRI THAT SHE HAS BEEN FOR 20 YEARS SHE WAS SEEN HERE YESTERDAY WITH SYMPTOMS OF EXTREME AGITATION RESTLESS AND WAS TOLD TO TAKE CYMBALTA 30 MG ADVISED BY HER PCP ANDNOT STOP ABRUPTLY SHE USED TO TAKE 120 MG PER DAY SHE ALSO WAS TAKING CLONAZEPAM 2 MG PO Q 8 H UNTIL JAN 2017 - History of Present Illness Allergies/Adverse Reactions: Allergies Cephalexin [From Keflex] Allergy (Unknown, Verified 05/02/17 14:27) per physician order sheet Erythromycin Allergy (Verified 05/02/17 14:27) Orphenadrine [From K-Flex] Allergy (Verified 05/02/17 14:27) Prochlorperazine [From Compazine] Allergy (Verified 05/02/17 14:27) Sulfa Drugs Allergy (Verified 05/02/17 14:27) Tetanus Toxoid Allergy (Verified 05/02/17 14:27) mycins Allergy (Uncoded 05/02/17 14:27) Home Medications: Ambulatory Orders Duloxetine HCl [Cymbalta] 60 mg PO BID #0 07/11/13 Sertraline HCl [Zoloft] 100 mg PO DAILY 12/13/14 Clonazepam 2 mg PO BID 05/04/16 Trazodone HCl 150 mg PO BEDTIME 08/04/16 Metaxalone 800 mg PO TID PRN #30 tab 08/15/16 Hydrocodone-Acetaminophen [[place] 5-325 mg] 1 tab PO PRN PRN 08/20/16 Sumatriptan Succinate [Imitrex] 100 mg PO DAILY PRN #9 tab 10/04/16 Bqfpjqzzewprc-Jgrg-Rvhrdrhiaz [Fioricet] 1 - 2 ea PO Q6HR PRN #20 tab 10/16/16 Ibuprofen 800 mg PO Q8HR PRN #30 tab 10/16/16 DULoxetine HCL [Cymbalta] 20 mg PO DAILY #15 cap 05/01/17 Past Medical History (General) - Patient Medical History Hx Seizures: Yes - pseudoseizures Hx Stroke: No Hx Dementia: No Hx Asthma: No Hx of COPD: No Hx Cardiac Disorders: No Hx Congestive Heart Failure: No Hx Pacemaker: No Hx Hypertension: No Hx Thyroid Disease: No Hx Diabetes: No Hx Gastroesophageal Reflux: No Hx Renal Disease: No Hx Cancer: No Hx of HIV: No Hx Hepatitis C: No Hx MRSA: No MRSA Source:: nasal - Vaccination History Hx Tetanus, Diphtheria Vaccination: No Hx Influenza Vaccination: No Hx Pneumococcal Vaccination: No - Social History Hx Tobacco Use: No Hx Chewing Tobacco Use: No Hx Alcohol Use: No Hx Substance Use: No Hx Substance Use Treatment: No Hx Depression: No Hx Physical Abuse: No Hx Emotional Abuse: No Hx Suspected Abuse: No - Female History Patient : No Family Medical History - Family History Mother Family History: No Known Living Status: Unknown Hx Family Asthma: No Hx Family;Other: pt unable to explain family history at this time Physical Exam - Physical Exam General Appearance: Agitated - PT STARTED TO SEIZE GENERAL TONIC CLONIC CONVULSIONS INVOLVING ALL 4 EXTREMITIES , Obvious distress Eye Exam: bilateral normal Ears, Nose, Throat: hearing grossly normal, normal ENT inspection, normal pharynx Neck: non-tender, full range of motion, supple Respiratory: chest non-tender, lungs clear, normal breath sounds, no respiratory distress, no accessory muscle use Cardiovascular/Chest: normal peripheral pulses, regular rate, rhythm, no edema, no gallop, no JVD, no murmur Peripheral Pulses: radial,right: 2+, radial,left: 2+, femoral,right: 2+, femoral ,left: 2+ Gastrointestinal/Abdominal: normal bowel sounds, non tender, soft, no organomegaly, no pulsatile mass Extremity: normal range of motion, non-tender, normal inspection, no pedal edema Neurologic: alert - ACTIVELY SEIZING Lymphatic: no adenopathy Progress - Progress Progress: 05/02/17 14:55 PT WAS GIVEN ATIVAN 2 MG IVP TO STOP THE SEIZURES AND SHE HAD RECURRENT SEIZURE AND WAS GIVEN AN ANOTHER DOSE OF THE SAME TO CONTROL HER SEIZURE ACTIVITY Departure - Departure Clinical Impression: Seizure Disposition: Discharge to Home or Self Care Departure Forms: ED Discharge - Pt. Copy, Patient Portal Self Enrollment Referrals: Mikey Singh MD [Primary Care Provider] - 1-2 Weeks Home Medications: Ambulatory Orders Duloxetine HCl [Cymbalta] 60 mg PO BID #0 07/11/13 Sertraline HCl [Zoloft] 100 mg PO DAILY 12/13/14 Clonazepam 2 mg PO BID 05/04/16 Trazodone HCl 150 mg PO BEDTIME 08/04/16 Metaxalone 800 mg PO TID PRN #30 tab 08/15/16 Hydrocodone-Acetaminophen [[place] 5-325 mg] 1 tab PO PRN PRN 08/20/16 Sumatriptan Succinate [Imitrex] 100 mg PO DAILY PRN #9 tab 10/04/16 Keqdsoktcqpft-Ewtt-Puyqothcum [Fioricet] 1 - 2 ea PO Q6HR PRN #20 tab 10/16/16 Ibuprofen 800 mg PO Q8HR PRN #30 tab 10/16/16 DULoxetine HCL [Cymbalta] 20 mg PO DAILY #15 cap 05/01/17
[2017-05-02 14:27] VITALS: TEMP 98.7
[2017-05-02] MEDS ORDERED: SODIUM CHLORIDE 0.9% 1000ML 1,000 ML IVS ONE (14:36)
[2017-05-02] MEDS ORDERED: MIDAZOLAM INJ 5 MG/5 ML VIAL ONE (15:55)
[2017-05-02] MEDS ORDERED: MIDAZOLAM INJ 5 MG/5 ML VIAL IV ONE (16:01)
[2017-05-02 16:06] VITALS: O2SAT 98
[2017-05-02 18:08] VITALS: BP 101/60
== END 2017-05-02 17:56 | disposition home or self-care (01) ==
LOC: ER 13:11
DX: R56.9 Unspecified convulsions (principal); Z79.899 Other long term (current) drug therapy
CPT/HCPCS: 36415; 80053; 80307; 85025; 93005; J2060; J2250; J7030

== ENCOUNTER 2017-05-03 11:44 | Emergency (ER) | payer MEDICARE ==
--- NOTE | 2017-05-03 12:21 | ED.PDOC ---
History of Present Illness - General Chief Complaint: Neuro Symptoms/Deficits Stated Complaint: seizure episode Time Seen by Provider: 05/03/17 11:58 Source: patient - History of Present Illness Initial Comments: Camille Washburn 56 y/o female brought by ems after he was noted to have seizure episode at home today.Patient has history of pseudo seizures stating she was mad that she was prescribed prozac since she had been weaned off from her cymbalta which she had been taking for the last 20 years.She had been to ER 2 x this week for same problem.According to her she took 2 doses of Prozac since yesterday made her angry/rosalba some creeping sensation on her body She stated does not want to take antidepressant anymore.Labs done yesterday were all within normal limits Timing/Duration: intermittent, other - 5 days Severity: moderate Improving Factors: nothing Worsening Factors: nothing Associated Symptoms: denies symptoms Allergies/Adverse Reactions: Allergies Cephalexin [From Keflex] Allergy (Unknown, Verified 05/03/17 12:21) per physician order sheet Erythromycin Allergy (Verified 05/03/17 12:21) Orphenadrine [From K-Flex] Allergy (Verified 05/03/17 12:21) Prochlorperazine [From Compazine] Allergy (Verified 05/03/17 12:21) Sulfa Drugs Allergy (Verified 05/03/17 12:21) Tetanus Toxoid Allergy (Verified 05/03/17 12:21) mycins Allergy (Uncoded 05/03/17 12:21) Home Medications: Ambulatory Orders RX: Duloxetine HCl [Cymbalta] 60 mg PO BID #0 07/11/13 RX: Sertraline HCl [Zoloft] 100 mg PO DAILY 12/13/14 RX: Clonazepam 2 mg PO BID 05/04/16 RX: Trazodone HCl 150 mg PO BEDTIME 08/04/16 RX: Metaxalone 800 mg PO TID PRN #30 tab 08/15/16 Hydrocodone-Acetaminophen [[place] 5-325 mg] 1 tab PO PRN PRN 08/20/16 Sumatriptan Succinate [Imitrex] 100 mg PO DAILY PRN #9 tab 10/04/16 Czozwjrlbilnl-Xkps-Ydmnkgmxpi [Fioricet] 1 - 2 ea PO Q6HR PRN #20 tab 10/16/16 RX: Ibuprofen 800 mg PO Q8HR PRN #30 tab 10/16/16 DULoxetine HCL [Cymbalta] 20 mg PO DAILY #15 cap 05/01/17 RX: cloNAZepam [Klonopin] 1 mg PO BID #4 tab 05/03/17 Review of Systems - Review of Systems Constitutional: States: no symptoms reported EENTM: States: no symptoms reported Respiratory: States: no symptoms reported Cardiology: States: no symptoms reported Gastrointestinal/Abdominal: States: no symptoms reported Musculoskeletal: States: no symptoms reported Skin: States: no symptoms reported Neurological: States: see HPI, emotional problems Past Medical History (General) - Patient Medical History Hx Seizures: Yes - pseudoseizures Hx Stroke: No Hx Dementia: No Hx Asthma: No Hx of COPD: No Hx Cardiac Disorders: No Hx Congestive Heart Failure: No Hx Pacemaker: No Hx Hypertension: No Hx Thyroid Disease: No Hx Diabetes: No Hx Gastroesophageal Reflux: No Hx Renal Disease: No Hx Cancer: No Hx of HIV: No Hx Hepatitis C: No Hx MRSA: No MRSA Source:: nasal Surgical History: other - Vaccination History Hx Tetanus, Diphtheria Vaccination: No Hx Influenza Vaccination: No Hx Pneumococcal Vaccination: No - Social History Hx Tobacco Use: No Hx Chewing Tobacco Use: No Hx Alcohol Use: No Hx Substance Use: No Hx Substance Use Treatment: No Hx Depression: No Hx Physical Abuse: No Hx Emotional Abuse: No Hx Suspected Abuse: No - Female History Patient : No Family Medical History - Family History Mother Family History: No Known Living Status: Unknown Hx Family Asthma: No Hx Family;Other: pt unable to explain family history at this time Physical Exam - Physical Exam General Appearance: Alert, Comfortable, No apparent distress Eye Exam: bilateral normal Ears, Nose, Throat: hearing grossly normal, normal ENT inspection, normal pharynx Neck: non-tender, full range of motion, supple Respiratory: chest non-tender, lungs clear, normal breath sounds Cardiovascular/Chest: normal peripheral pulses, regular rate, rhythm, no murmur Peripheral Pulses: radial,right: 2+, radial,left: 2+ Gastrointestinal/Abdominal: normal bowel sounds, non tender, soft Extremity: non-tender, no pedal edema, no calf tenderness Neurologic: alert, normal mood/affect, oriented x 3 Skin Exam: normal color, warm/dry Departure - Departure Clinical Impression: Other seizures Migraine Qualifiers: Migraine type: unspecified Status migrainosus presence: without status migrainosus Intractability: not intractable Qualified Code(s): G43.909 - Migraine, unspecified, not intractable, without status migrainosus Time of Disposition: 12:25 Disposition: Discharge to Home or Self Care Departure Forms: ED Discharge - Pt. Copy, Patient Portal Self Enrollment Referrals: Mikey Singh MD [Primary Care Provider] - 1-2 Weeks Prescriptions: RX: cloNAZepam [Klonopin] 1 mg PO BID #4 tab Home Medications: Ambulatory Orders RX: Duloxetine HCl [Cymbalta] 60 mg PO BID #0 07/11/13 RX: Sertraline HCl [Zoloft] 100 mg PO DAILY 12/13/14 RX: Clonazepam 2 mg PO BID 05/04/16 RX: Trazodone HCl 150 mg PO BEDTIME 08/04/16 RX: Metaxalone 800 mg PO TID PRN #30 tab 08/15/16 Hydrocodone-Acetaminophen [[place] 5-325 mg] 1 tab PO PRN PRN 08/20/16 Sumatriptan Succinate [Imitrex] 100 mg PO DAILY PRN #9 tab 10/04/16 Woybbsmbbzetn-Ophu-Ykqqmhairw [Fioricet] 1 - 2 ea PO Q6HR PRN #20 tab 10/16/16 RX: Ibuprofen 800 mg PO Q8HR PRN #30 tab 10/16/16 DULoxetine HCL [Cymbalta] 20 mg PO DAILY #15 cap 05/01/17 RX: cloNAZepam [Klonopin] 1 mg PO BID #4 tab 05/03/17 Additional Instructions: KEEP APPOINTMENT WITH PRIMARY MD TODAY
[2017-05-03] MEDS ORDERED: MIDAZOLAM INJ 5 MG/5 ML VIAL IV ONE (12:27)
[2017-05-03] MEDS ORDERED: PROMETHAZINE HCL INJ 25 MG/ML VIAL IM ONE (13:16)
[2017-05-03] MEDS ORDERED: KETOROLAC TROMETHAMINE INJ 30 MG/ML VIAL IM ONE (13:17)
--- NOTE | 2017-05-03 13:36 | CT ---
EXAM DESCRIPTION: Head: Computed Tomography. CLINICAL HISTORY: recurrent seizures COMPARISON: CT head noncontrast 08/03/2016. TECHNIQUE: Non-helical axial scans through the skull and brain, at 2.5 mm intervals, non-contrast. Coronal and sagittal 2.0 mm reconstructions. Total Exam DLP: 859.97 mGy-cm. This exam was performed according to our departmental dose-optimization program which includes automated exposure control, adjustment of the mA and/or kV according to patient size and/or use of iterative reconstruction technique; to reduce radiation dose to as low as reasonably achievable (ALARA). FINDINGS: No hemorrhage, no mass-effect, and no midline shift. Normal doran-white matter differentiation. No abnormal radiodense material in the brain parenchyma. Vascular calcifications not present; physiologic calcifications in the pineal gland and choroid plexus. No effacement or displacement of the ventricles, CSF spaces, or subdural spaces. No extra axial fluid collection or hemorrhage. No gross abnormalities of the bony calvarium. Included paranasal sinuses and mastoid air cells are well - aerated. IMPRESSION: 1. No hemorrhage, no mass effect, no midline shift. Normal CT scan of the head without IV contrast. Stable since prior study in 2017. 2. CT scans are insensitive for detecting small CVAs in the first 24 hours after onset. Evaluation of the brain stem is also limited. If symptoms persist, consider MRI scan of the brain with diffusion imaging. Electronically signed by: Juan Carlos Kapadia MD 05/03/2017 1:35 PM [facility]
[2017-05-03] MEDS ORDERED: METOCLOPRAMIDE HCL INJ 10 MG/2 ML VIAL IV ONE (13:41)
[2017-05-03] MEDS ORDERED: BUTORPHANOL TARTRATE 2 MG/ML VIAL IV ONE (13:41)
[2017-05-03] MEDS ORDERED: SUCRALFATE 1 GM/10 ML 1 GM UD PO ONE (14:39)
[2017-05-03] MEDS ORDERED: ALUM & MAG HYDROX-SIMETHICONE 30 ML, LIDOCAINE VISCOUS 2% 15 ML PO ONE ×2 (14:39)
[2017-05-03 14:57] VITALS: BP 96/63; TEMP 97.7; O2SAT 96
== END 2017-05-03 14:45 | disposition home or self-care (01) ==
LOC: ER 11:44
DX: G40.89 Other seizures (principal); G43.909 Migraine, unspecified, not intractable, without status migrainosus; Z79.899 Other long term (current) drug therapy
CPT/HCPCS: 70450; J0595; J2060; J2250; J2765

== ENCOUNTER 2017-05-05 16:25 | Emergency (ER) | payer MEDICARE ==
--- NOTE | 2017-05-05 16:31 | ED.PDOC ---
History of Present Illness - General Chief Complaint: Neuro Symptoms/Deficits Stated Complaint: SEIZURES AND HEAD INJURY Time Seen by Provider: 05/05/17 16:27 Source: family Additional Information: 56 YEAR OLD BROUGHT HERE BY HER WHO REPORTS SHE HAS HAD SEIZURES X 2 TODAY SHE HAS BEEN DIAGNOSED WITH WITHDRWL SEIZURES FROM HER ABRUPT DISCONTINUATION OF CYMBALTA SHE USED TO TAKE 120 MG FOR 2 DECADES AND ALSO SHE USED TO BE ON KLONIPIN SHE WAS SEEN HERE 48 HOURS AGO SINCE THE DISCHARGE SHE HAD SEEN HER PCP AND DID WAS DOING WELL UNTIL THIS MORNING - History of Present Illness Timing/Duration: 1-3 hours Severity: moderate Improving Factors: nothing Allergies/Adverse Reactions: Allergies Cephalexin [From Keflex] Allergy (Unknown, Verified 05/03/17 12:21) per physician order sheet Erythromycin Allergy (Verified 05/03/17 12:21) Orphenadrine [From K-Flex] Allergy (Verified 05/03/17 12:21) Prochlorperazine [From Compazine] Allergy (Verified 05/03/17 12:21) Sulfa Drugs Allergy (Verified 05/03/17 12:21) Tetanus Toxoid Allergy (Verified 05/03/17 12:21) mycins Allergy (Uncoded 05/03/17 12:21) Home Medications: Ambulatory Orders Duloxetine HCl [Cymbalta] 60 mg PO BID #0 07/11/13 Sertraline HCl [Zoloft] 100 mg PO DAILY 12/13/14 Clonazepam 2 mg PO BID 05/04/16 Trazodone HCl 150 mg PO BEDTIME 08/04/16 Metaxalone 800 mg PO TID PRN #30 tab 08/15/16 Hydrocodone-Acetaminophen [[place] 5-325 mg] 1 tab PO PRN PRN 08/20/16 Sumatriptan Succinate [Imitrex] 100 mg PO DAILY PRN #9 tab 10/04/16 Kjaywfxtwhetr-Ghxb-Ihxfttcsmm [Fioricet] 1 - 2 ea PO Q6HR PRN #20 tab 10/16/16 Ibuprofen 800 mg PO Q8HR PRN #30 tab 10/16/16 DULoxetine HCL [Cymbalta] 20 mg PO DAILY #15 cap 05/01/17 cloNAZepam [Klonopin] 1 mg PO BID #4 tab 05/03/17 Review of Systems - Review of Systems Unable to Obtain Due To: clinical condition - SHE IS UNABLE TO TALK ( POST ICTAL ) All other Systems: No Change from Baseline Past Medical History (General) - Patient Medical History Hx Seizures: Yes - pseudoseizures Hx Stroke: No Hx Dementia: No Hx Asthma: No Hx of COPD: No Hx Cardiac Disorders: No Hx Congestive Heart Failure: No Hx Pacemaker: No Hx Hypertension: No Hx Thyroid Disease: No Hx Diabetes: No Hx Gastroesophageal Reflux: No Hx Renal Disease: No Hx Cancer: No Hx of HIV: No Hx Hepatitis C: No Hx MRSA: No MRSA Source:: nasal - Vaccination History Hx Tetanus, Diphtheria Vaccination: No Hx Influenza Vaccination: No Hx Pneumococcal Vaccination: No - Social History Hx Tobacco Use: No Hx Chewing Tobacco Use: No Hx Alcohol Use: No Hx Substance Use: No Hx Substance Use Treatment: No Hx Depression: No Hx Physical Abuse: No Hx Emotional Abuse: No Hx Suspected Abuse: No - Female History Patient : No Family Medical History - Family History Mother Family History: No Known Living Status: Unknown Hx Family Asthma: No Hx Family;Other: pt unable to explain family history at this time Physical Exam - Physical Exam General Appearance: Lethargic, Well Groomed, Well Hydrated, Well Nourished Eye Exam: bilateral normal ENT Exam: normal ENT inspection, hearing grossly normal, TMs normal, pharynx normal Neck: non-tender, full range of motion, supple Respiratory: chest non-tender, lungs clear, normal breath sounds, no respiratory distress, no accessory muscle use Cardiovascular/Chest: normal peripheral pulses, regular rate, rhythm, no edema, no gallop, no JVD Peripheral Pulses: radial,right: 2+, radial,left: 2+, femoral,right: 2+, femoral ,left: 2+ Back Exam: normal inspection Extremities Exam: normal range of motion, no evidence of injury Mental Status: unresponsive Progress - Results/Orders Results/Orders: Laboratory Tests 05/05/17 05/05/17 16:45 16:45 WBC 7.9 RBC 4.36 Hgb 13.2 Hct 38.4 MCV 88.2 MCH 30.2 MCHC 34.3 RDW 12.2 Plt Count 273 MPV 8.2 Absolute Neuts (auto) 4.40 Absolute Lymphs (auto) 2.60 Absolute Monos (auto) 0.90 H Absolute Eos (auto) 0.10 Absolute Basos (auto) 0.00 Neutrophils % 54.9 Lymphocytes % 32.5 Monocytes % 11.0 H Eosinophils % 1.0 Basophils % 0.6 Sodium 138 Potassium 4.2 Chloride 103 Carbon Dioxide 22 Anion Gap 17.2 BUN 10 Creatinine 0.65 BUN/Creatinine Ratio 15.4 Random Glucose 83 Serum Osmolality 273.9 L Calcium 9.0 Departure - Departure Clinical Impression: Seizure disorder, Withdrawal complaint Time of Disposition: 21:28 Disposition: Discharge to Home or Self Care Condition: Good Departure Forms: ED Discharge - Pt. Copy, Patient Portal Self Enrollment Activity: increase activity as tolerated Referrals: Mikey Singh MD [Primary Care Provider] - 1-2 Weeks Home Medications: Ambulatory Orders Duloxetine HCl [Cymbalta] 60 mg PO BID #0 07/11/13 Sertraline HCl [Zoloft] 100 mg PO DAILY 12/13/14 Clonazepam 2 mg PO BID 05/04/16 Trazodone HCl 150 mg PO BEDTIME 08/04/16 Metaxalone 800 mg PO TID PRN #30 tab 08/15/16 Hydrocodone-Acetaminophen [[place] 5-325 mg] 1 tab PO PRN PRN 08/20/16 Sumatriptan Succinate [Imitrex] 100 mg PO DAILY PRN #9 tab 10/04/16 Ymdsrywkamgdk-Kgjn-Oaefyvggzl [Fioricet] 1 - 2 ea PO Q6HR PRN #20 tab 10/16/16 Ibuprofen 800 mg PO Q8HR PRN #30 tab 10/16/16 DULoxetine HCL [Cymbalta] 20 mg PO DAILY #15 cap 05/01/17 cloNAZepam [Klonopin] 1 mg PO BID #4 tab 05/03/17
[2017-05-05] MEDS ORDERED: SODIUM CHLORIDE 0.9% 1000ML 1,000 ML IVS ONE (16:34)
[2017-05-05] MEDS ORDERED: levETIRAcetam INJ 500 MG in SODIUM CHLORIDE 0.9% 100ML 100 ML IVPB ONE (16:38)
[2017-05-05] MEDS ORDERED: SODIUM CHLORIDE 0.9% 100ML 100 ML IVPB ONE (16:49)
[2017-05-05] MEDS ORDERED: levETIRAcetam INJ 100 MG/ML VIAL IVPB ONE (16:49)
--- NOTE | 2017-05-05 17:28 | CT ---
EXAM DESCRIPTION: Cervical Spine CLINICAL HISTORY: INJURY COMPARISON: 23 June 2015 TECHNIQUE: Cervical CT is performed with thin-section axial imaging. MPRs are created and reviewed as well.This exam was performed according to our departmental dose-optimization program, which includes automated exposure control, adjustment of the mA and/or kV according to patient size and/or use of iterative reconstruction technique. FINDINGS: There is good alignment of the cervical spine. Anterior and interbody fusion is observed at the C3-4 level. The fusion remains unchanged the prior exam. Loss of disc height is observed at the C2-3, C6-7 and C7-T1 levels. This also remains unchanged from the previous exam. Some neural foraminal narrowing is observed particularly at the C6 level. It remains unchanged the previous exam. Neural foraminal narrowing is also observed at the C5 and C4 levels also unchanged. No fracturing is detected. No intra-axial abnormality is detected. IMPRESSION: The exam does reveal degenerative changes and evidence of prior ACDF at the C3-4 level. No evidence of fracturing is detected. No interval changes noted. Electronically signed by: Jah Mittal MD 05/05/2017 5:[address] [facility]
--- NOTE | 2017-05-05 17:30 | CT ---
EXAM DESCRIPTION: Head CLINICAL HISTORY: INJURY COMPARISON: 03 May 2017 TECHNIQUE: Non contrast cranial CT.This exam was performed according to our departmental dose-optimization program, which includes automated exposure control, adjustment of the mA and/or kV according to patient size and/or use of iterative reconstruction technique. FINDINGS: Ventricles and sulci are unremarkable. There is no hemorrhage or mass. There are no white matter abnormalities detected. The calvarium is unremarkable. A right frontal scalp hematoma is observed. The visualized paranasal sinuses and the mastoids are clear. IMPRESSION: A right frontal scalp hematoma is observed. Exam is otherwise unremarkable Electronically signed by: Jah Mittal MD 05/05/2017 5:29 PM MATCHER O[employer]ATOR
[2017-05-05] MEDS ORDERED: BUTORPHANOL TARTRATE 2 MG/ML VIAL IV ONE (20:03)
[2017-05-05] MEDS: BUTORPHANOL TARTRATE 2 MG/ML VIAL IV ONE (20:11)
[2017-05-05 22:29] VITALS: BP 94/58; TEMP 97.6; O2SAT 98
[2017-05-06] MEDS: BUTORPHANOL TARTRATE 2 MG/ML VIAL IV ONE (15:53)
== END 2017-05-05 22:29 | disposition home or self-care (01) ==
LOC: ER 16:25
DX: G40.909 Epilepsy, unspecified, not intractable, without status epilepticus (principal); F19.939 Other psychoactive substance use, unspecified with withdrawal, unspecified; Z79.899 Other long term (current) drug therapy
CPT/HCPCS: 36415; 70450; 72125; 80048; 85025; J0595; J2060; J7030; J7050

== ENCOUNTER 2017-05-12 20:02 | Emergency (ER) | payer MEDICARE ==
--- NOTE | 2017-05-12 20:47 | ED.PDOC ---
History of Present Illness - General Chief Complaint: Neuro Symptoms/Deficits Stated Complaint: Left sided weakness Time Seen by Provider: 05/12/17 20:05 Source: patient, family Exam Limitations: clinical condition - History of Present Illness Initial Comments: the patient is a 56-year-old female presenting to the emergency room with her secondary to the onset of some left-sided "facial droop", some slurring of speech, and some weakness in her left upper and lower extremity starting approximately at 7:15 in the evening while they were at [employer]. She has not had any strokes before in the past. The patient does have a history of significant anxiety and depression. She also has a history of migraines. She also has a history of seizures versus pseudoseizures. The patient started having more problems over the last 2 weeks after discontinuing her Cymbalta. The patient was placed on low-dose Prozac and started having significant agitation and anxiety as well as some insomnia. She was told to restart the very low-dose Cymbalta every 3 days and gradually taper off while tapering on the Prozac. She chose not to do that and has been taking the Cymbalta every day and completely discontinue the Prozac. She has additionally been taking Xanax. She has been seen in this emergency room 4 times over the last 10 days or so and an additional 2 times in [place] over the same for the agitation , falls, seizures versus pseudoseizures. She has had multiple CT scans during that time. The patient also has a complicated history in that she has a significant history for attention seeking and drug-seeking, making her care very tricky. She apparently did not get to see a neurologist in [place] on her last 2 visits. No EEGs were performed. The patient was apparently however started on Topamax 4 days ago and since that time she reports and her reports that she has not had a seizure. Affect is atypical for a stroke patient here. She is directable however she for the most part stares upwards at the ceiling. Upon my arrival she is lying with her mouth open and her tongue bulging out the left side. There is a mild lower face facial droop but not obvious around the eyes. The patient has 2+ reflexes throughout upper and lower extremities. She does seem to have significant weakness to the left upper and lower extremity though how much effort is being fed and I cannot tell for sure. Gag reflex is strong. Speech is somewhat slurred. The patient will be sent to CT scan to see if we can see something that looks like an ischemic stroke and help rule out any sort of hemorrhage being that she has fallen recently. I do very much dislikehaving to do another CT scan on this patient however I do not see much choice at this point. The negative effects of repeat radiation have been explained to the and does agree to proceed. According to him she has had this pattern of deficits before several years ago. He has apparently happened on several occasions. She has no history of any formal stroke. There is been no evidence of any stroke seen on any of the head CTs. Source of the deficits which have been transient in the past had apparently according to him, not been identified. The patient has seen Dr. Garcia in the past. on the second exam of the patient, she is looking less like a stroke patient. Rather than a facial droop she has more of a frown on the left side. Her effort when told to smile is poor. She is showing some movement of the left side. Official report of the head CT showed no evidence of any hemorrhage or obvious effects of any ischemia. At this point in time I believe the risk of lytic therapy on this patient outweigh the potential benefits as I do not think she is having a stroke. Whether this is a display put on for secondary gain or a seizure or a pseudoseizure or an atypical migraine I cannot say. I'm going to try and transfer the patient for higher level of care she can maybe see a neurologist and possibly psychiatry if appropriate for further delineation of the source. Unfortunately transfer may take a little while as multiple hospitals are fulland ambulance services are tied up. the patient just had seizure-like activities and I did witness that lasted approximately 2-3 minutes. The patient was breathing throughout the event. She did straighten and Hold rigid in her left upper and lower extremity. there was no evidence of any facial droop during the event. The patient looked upward during the event. The patient seemed to have a slow tremor to the right upper and lower extremity during the event. No biting of the tongue. There was no desaturation of her oxygen level. I am however uncertain if this is true seizure activity or a pseudoseizure. The patient will be given a slow dose of IV Ativan. within 20 minutes of the patient having one of her "grand mal" seizures, she was moving all extremities well with no neurological deficit whatsoever. She was speaking completely normally and fluently. She was however complaining of a significant right-sided headache. the patient did have another episode of seizure-like activity immediately after she was told she was going to be released on a slightly higher dose of her Topamax. Timing/Duration: 1 hour Severity: severe Improving Factors: nothing Worsening Factors: nothing Associated Symptoms: weakness Allergies/Adverse Reactions: Allergies Cephalexin [From Keflex] Allergy (Unknown, Verified 05/03/17 12:21) per physician order sheet Erythromycin Allergy (Verified 05/03/17 12:21) Orphenadrine [From K-Flex] Allergy (Verified 05/03/17 12:21) Prochlorperazine [From Compazine] Allergy (Verified 05/03/17 12:21) Sulfa Drugs Allergy (Verified 05/03/17 12:21) Tetanus Toxoid Allergy (Verified 05/03/17 12:21) mycins Allergy (Uncoded 05/03/17 12:21) Home Medications: Ambulatory Orders Duloxetine HCl [Cymbalta] 60 mg PO BID #0 07/11/13 Sertraline HCl [Zoloft] 100 mg PO DAILY 12/13/14 Clonazepam 2 mg PO BID 05/04/16 Trazodone HCl 150 mg PO BEDTIME 08/04/16 Metaxalone 800 mg PO TID PRN #30 tab 08/15/16 Hydrocodone-Acetaminophen [Euless 5-325 mg] 1 tab PO PRN PRN 08/20/16 Sumatriptan Succinate [Imitrex] 100 mg PO DAILY PRN #9 tab 10/04/16 Nftxvtwaiqjch-Yrhy-Kpsckxuhkf [Fioricet] 1 - 2 ea PO Q6HR PRN #20 tab 10/16/16 Ibuprofen 800 mg PO Q8HR PRN #30 tab 10/16/16 DULoxetine HCL [Cymbalta] 20 mg PO DAILY #15 cap 05/01/17 cloNAZepam [Klonopin] 1 mg PO BID #4 tab 05/03/17 Review of Systems - Review of Systems Constitutional: States: malaise EENTM: States: no symptoms reported Respiratory: States: no symptoms reported Cardiology: States: no symptoms reported Gastrointestinal/Abdominal: States: no symptoms reported Genitourinary: States: no symptoms reported Musculoskeletal: States: no symptoms reported Neurological: States: see HPI Endocrine: States: no symptoms reported All other Systems: No Change from Baseline Past Medical History (General) - Patient Medical History Hx Seizures: Yes - pseudoseizures Hx Stroke: No Hx Dementia: No Hx Asthma: No Hx of COPD: No Hx Cardiac Disorders: No Hx Congestive Heart Failure: No Hx Pacemaker: No Hx Hypertension: No Hx Thyroid Disease: No Hx Diabetes: No Hx Gastroesophageal Reflux: No Hx Renal Disease: No Hx Cancer: No Hx of HIV: No Hx Hepatitis C: No Hx MRSA: No MRSA Source:: nasal - Vaccination History Hx Tetanus, Diphtheria Vaccination: No Hx Influenza Vaccination: No Hx Pneumococcal Vaccination: No - Social History Hx Tobacco Use: No Hx Chewing Tobacco Use: No Hx Alcohol Use: No Hx Substance Use: No Hx Substance Use Treatment: No Hx Depression: No Hx Physical Abuse: No Hx Emotional Abuse: No Hx Suspected Abuse: No - Female History Patient : No Family Medical History - Family History Mother Family History: No Known Living Status: Unknown Hx Family Asthma: No Hx Family;Other: pt unable to explain family history at this time Physical Exam - Physical Exam General Appearance: Other - appears drowsy but responds. Eye Exam: bilateral normal Ears, Nose, Throat: hearing grossly normal, normal ENT inspection Neck: full range of motion, supple Respiratory: lungs clear, normal breath sounds, no respiratory distress, no accessory muscle use Cardiovascular/Chest: normal peripheral pulses, regular rate, rhythm, no edema Peripheral Pulses: radial,right: 2+, radial,left: 2+, dorsalis pedis,right: 2+, dorsalis pedis,left: 2+ Gastrointestinal/Abdominal: non tender, soft Rectal Exam: deferred Back Exam: normal inspection Extremity: normal range of motion - ormal active range of motion on the right and normal passive range of motion on the left, non-tender, no pedal edema, no calf tenderness, normal capillary refill Neurologic: other - ee history of present illness Skin Exam: normal color Comments: Vital Signs - 24 hr 05/12/17 20:33 Temperature 97.8 F Pulse Rate 89 Pulse Rate [ 89 monitor] Respiratory 18 Rate Blood Pressure 111/73 [monitor] O2 Sat by Pulse 95 Oximetry Progress - Progress Progress: the patient is a 56-year-old female presenting to the emergency room with strokelike symptoms. Symptoms seemed to resolve when the patient started having seizure symptoms. Weakness of her extremities and "facial droop" immediately resolved. Seizure symptoms stopped after a small dose of IV Ativan. She did also receive some IV fluids. The patient did also receive a small dose of Topamax. Head CT was negative. Lab work was reassuring. I do not believe that she has had a stroke. Differential diagnosis includes migraine with atypical manifestations, seizures with transient neurological deficits and/or pseudoseizures and conversion disorder. The patient needs an evaluation with neurology as well as an EEG preferably around the time of one these events. She does not currently have a neurologist but needs one. She needs to contact her primary care doctor tomorrow to get her set up with a neurologist to have further evaluation done. For now she is going to gradually ramp up her Topamax to 50 mg twice a day over the course of the next 2 weeks. She needs to keep herself well-hydrated. She needs to follow up with her primary care doctor tomorrow. If the patient is truly having seizures, the ramping up of the Topamax will hopefully help. If nothing else, that may help reduce frequency of her migraine headaches. She obviously cannot drive, climb or swim or other any dangerous activities while she is having these events. She does understand this. She and her understand this. They have agreed to the plan above. 05/13/17 01:51 dr garcia is having his specialty clinic here tomorrow. The patient may choose to try to get a walk-in appointment with him if she wishes him to manage her in the future. The patient has refused any loading doses of Depakote, Keppra or dilantin. - Results/Orders Results/Orders: head CT shows no evidence of any acute pathology. Laboratory Results - last 24 hr 05/12/17 05/12/17 05/12/17 20:45 20:45 20:45 WBC 7.3 RBC 4.16 L Hgb 12.5 Hct 37.0 MCV 88.9 MCH 30.0 MCHC 33.9 RDW 12.5 Plt Count 246 MPV 8.4 Absolute Neuts (auto) 3.20 Absolute Lymphs (auto) 3.20 Absolute Monos (auto) 0.70 Absolute Eos (auto) 0.20 Absolute Basos (auto) 0.00 Neutrophils % 44.2 Lymphocytes % 43.1 Monocytes % 9.2 H Eosinophils % 3.0 Basophils % 0.5 PT 10.8 INR 0.960 PTT (SP) 29.2 Sodium 137 Potassium 3.5 L Chloride 104 Carbon Dioxide 23 Anion Gap 13.5 BUN 16 Creatinine 0.90 BUN/Creatinine Ratio 17.8 Random Glucose 59 L Serum Osmolality 272.8 L Calcium 8.8 Magnesium 1.9 Total Bilirubin 0.3 AST 16 ALT 13 Alkaline Phosphatase 62 Serum Total Protein 6.9 Albumin 4.2 Globulin 2.7 Albumin/Globulin Ratio 1.6 telemetry monitoring shows normal sinus rhythm. Departure - Departure Clinical Impression: Stroke-like symptoms Disposition: Discharge to Home or Self Care Condition: Fair Departure Forms: ED Discharge - Pt. Copy, Patient Portal Self Enrollment Instructions: DI for Seizure Disorder -- Adult Diet: regular diet Activity: increase activity as tolerated Referrals: Mikey Singh MD [Primary Care Provider] - 1-2 Days Home Medications: Ambulatory Orders Duloxetine HCl [Cymbalta] 60 mg PO BID #0 07/11/13 Sertraline HCl [Zoloft] 100 mg PO DAILY 12/13/14 Clonazepam 2 mg PO BID 05/04/16 Trazodone HCl 150 mg PO BEDTIME 08/04/16 Metaxalone 800 mg PO TID PRN #30 tab 08/15/16 Hydrocodone-Acetaminophen [Euless 5-325 mg] 1 tab PO PRN PRN 08/20/16 Sumatriptan Succinate [Imitrex] 100 mg PO DAILY PRN #9 tab 10/04/16 Gysqkdwrewfbh-Nknu-Wawgixovdo [Fioricet] 1 - 2 ea PO Q6HR PRN #20 tab 10/16/16 Ibuprofen 800 mg PO Q8HR PRN #30 tab 10/16/16 DULoxetine HCL [Cymbalta] 20 mg PO DAILY #15 cap 05/01/17 cloNAZepam [Klonopin] 1 mg PO BID #4 tab 05/03/17 Additional Instructions: the patient is a 56-year-old female presenting to the emergency room with strokelike symptoms. Symptoms resolved when the patient started having seizure symptoms. Seizure symptoms stopped after a dose of IV Ativan. She did also receive some IV fluids. The patient did also receive a small dose of Topamax. Head CT was negative. Lab work was reassuring. I do not believe that she has had a stroke. The patient needs an evaluation with neurology as well as an EEG preferably around the time of one these events to help determine the source of her symptoms, and therefore the most appropriate treatment. She does not currently have a neurologist but needs one. She needs to contact her primary care doctor tomorrow to get her set up with a neurologist to have a further evaluation done. For now she is going to gradually ramp up her Topamax to 50 mg twice a day over the course of the next 2 weeks. she will take 25 mg in the morning and 50 mg at night for the next 5 days. After that she can increase to 50 mg twice daily if she is tolerating the previous dose well. She needs to keep herself well-hydrated. She needs to follow up with her primary care doctor tomorrow. If the source of the problem is seizure activity, the ramping up of the Topamax will hopefully help, as it apparently has in the past. If nothing else, that may help reduce frequency of her migraine type headaches, which may also be the source. She obviously cannot drive, climb or swim or other any dangerous activities while she is having these events. She does understand this. She and her understand this. They have agreed to the plan above.
--- NOTE | 2017-05-12 20:59 | CT ---
EXAM DESCRIPTION: Head CLINICAL HISTORY: 56 years Female R/O CVA COMPARISON: May 05, 2017 TECHNIQUE: Noncontrast axial scans of the brain were obtained. Sagittal and coronal reformatted images were performed. This exam was performed according to our departmental dose-optimization program, which includes automated exposure control, adjustment of the mA and/or kV according to patient size and/or use of iterative reconstruction technique. FINDINGS: There is no evidence of acute intracranial hemorrhage, extracerebral fluid collection, hydrocephalus, midline shift, obvious mass effect, or major territorial infarction. Cortical sulci are unremarkable. Banks-white distinction is preserved. The bony calvarium appears intact. Visualized paranasal sinuses and mastoid air cells appear clear. No significant change is seen compared to the previous study, except for reduction in the right frontal scalp hematoma. IMPRESSION: Essentially unremarkable examination. No evidence of acute intracranial hemorrhage. A verbal report was given to Dr. Zarate at 8:55 PM central time on May 12, 2017. Electronically signed by: Miguel Kurtz 05/12/2017 8:58 PM [facility]
[2017-05-12] MEDS ORDERED: KCL 10 MEQ/D5 1/2NS 1,000 ML IVS ONE (22:26)
[2017-05-12] MEDS ORDERED: KCL 20MEQ/D5 1/2NS 1,000 ML IVS ONE ×3 (22:34→22:50)
[2017-05-12] MEDS ORDERED: KETOROLAC TROMETHAMINE INJ 30 MG/ML VIAL IV ONE (23:58)
[2017-05-13] MEDS ORDERED: TOPIRAMATE 25 MG TAB PO ONE (00:09)
[2017-05-13 03:12] VITALS: BP 102/68; TEMP 97.3; O2SAT 99
== END 2017-05-13 02:10 | disposition home or self-care (01) ==
LOC: ER 20:02
DX: R29.810 Facial weakness (principal); G40.89 Other seizures; Z79.899 Other long term (current) drug therapy
CPT/HCPCS: 36415; 70450; 80053; 83735; 85025; 85610; 85730; J1885; J2060

== ENCOUNTER 2017-09-07 15:26 | Emergency (ER) | payer MEDICARE ==
--- NOTE | 2017-09-07 15:32 | ED.PDOC ---
History of Present Illness - General Chief Complaint: Abdominal Pain Stated Complaint: cramping abdominal pain Time Seen by Provider: 09/07/17 15:31 Source: patient Exam Limitations: no limitations - History of Present Illness Initial Comments: Camille Washburn 57 y/o female came to ER with on and off cramping abdominal pain for the last 3 days and was diagnosed by her neurologist several years ago with "celiac disease" and ate food with gluten this weekend which cause her to have this symptoms.Also stated had blood in the toilet paper after wiping her rectum after BM.No vomiting,no hematemesis,no melena. No hematuria or dysuria. Timing/Duration: intermittent, other - see hpi Severity: moderate Improving Factors: nothing Associated Symptoms: other - see hpi Allergies/Adverse Reactions: Allergies Cephalexin [From Keflex] Allergy (Unknown, Verified 09/07/17 15:43) per physician order sheet Erythromycin Allergy (Verified 09/07/17 15:43) Orphenadrine [From K-Flex] Allergy (Verified 09/07/17 15:43) Prochlorperazine [From Compazine] Allergy (Verified 09/07/17 15:43) Sulfa Drugs Allergy (Verified 09/07/17 15:43) Tetanus Toxoid Allergy (Verified 09/07/17 15:43) mycins Allergy (Uncoded 09/07/17 15:43) Home Medications: Ambulatory Orders Duloxetine HCl [Cymbalta] 60 mg PO BID #0 07/11/13 Sertraline HCl [Zoloft] 100 mg PO DAILY 12/13/14 Clonazepam 2 mg PO BID 05/04/16 Trazodone HCl 150 mg PO BEDTIME 08/04/16 Metaxalone 800 mg PO TID PRN #30 tab 08/15/16 Hydrocodone-Acetaminophen [[place] 5-325 mg] 1 tab PO PRN PRN 08/20/16 Sumatriptan Succinate [Imitrex] 100 mg PO DAILY PRN #9 tab 10/04/16 Bqrxzwzrqsxxk-Bxsr-Vdgedlxnrh [Fioricet] 1 - 2 ea PO Q6HR PRN #20 tab 10/16/16 Ibuprofen 800 mg PO Q8HR PRN #30 tab 10/16/16 DULoxetine HCL [Cymbalta] 20 mg PO DAILY #15 cap 05/01/17 cloNAZepam [Klonopin] 1 mg PO BID #4 tab 05/03/17 Review of Systems - Review of Systems Constitutional: States: no symptoms reported EENTM: States: no symptoms reported Respiratory: States: no symptoms reported Cardiology: States: no symptoms reported Gastrointestinal/Abdominal: States: see HPI Genitourinary: States: no symptoms reported All other Systems: Reviewed and Negative, No Change from Baseline Past Medical History (General) - Patient Medical History Hx Seizures: Yes - pseudoseizures Hx Stroke: No Hx Dementia: No Hx Asthma: No Hx of COPD: No Hx Cardiac Disorders: No Hx Congestive Heart Failure: No Hx Pacemaker: No Hx Hypertension: No Hx Thyroid Disease: No Hx Diabetes: No Hx Gastroesophageal Reflux: No Hx Renal Disease: No Hx Cancer: No Hx of HIV: No Hx Hepatitis C: No Hx MRSA: No MRSA Source:: nasal Surgical History: other - hysterectomy;back;colonoscopy;egd - Vaccination History Hx Tetanus, Diphtheria Vaccination: No Hx Influenza Vaccination: No Hx Pneumococcal Vaccination: No - Social History Hx Tobacco Use: No Hx Chewing Tobacco Use: No Hx Alcohol Use: No Hx Substance Use: No Hx Substance Use Treatment: No Hx Depression: No Hx Physical Abuse: No Hx Emotional Abuse: No Hx Suspected Abuse: No - Female History Patient : No Family Medical History - Family History Mother Family History: No Known Living Status: Unknown Hx Family Asthma: No Hx Family Cancer: Yes - basal cell ca-mom Hx Family;Other: pt unable to explain family history at this time Physical Exam - Physical Exam General Appearance: Alert, Comfortable, No apparent distress Eye Exam: bilateral normal Ears, Nose, Throat: hearing grossly normal, normal ENT inspection Neck: non-tender, full range of motion, supple Respiratory: chest non-tender, lungs clear, normal breath sounds Cardiovascular/Chest: normal peripheral pulses, regular rate, rhythm, no murmur Peripheral Pulses: radial,right: 2+, radial,left: 2+ Gastrointestinal/Abdominal: normal bowel sounds, soft, no organomegaly, tenderness - mid abdomen,no peritoneal signs Back Exam: no CVA tenderness, no vertebral tenderness Extremity: no pedal edema, no calf tenderness Neurologic: alert, oriented x 3 Skin Exam: normal color, warm/dry Progress - Progress Progress: 09/07/17 16:04 Vital Signs - 8 hr 09/07/17 15:32 Temperature 99.2 F Pulse Rate [ 92 H pulse ox] Respiratory 20 Rate Blood Pressure 131/74 [Left Arm] O2 Sat by Pulse 93 L Oximetry - Results/Orders Results/Orders: Laboratory Results - last 24 hr 09/07/17 09/07/17 09/07/17 15:50 15:50 16:29 WBC 5.2 RBC 4.28 Hgb 13.1 Hct 38.1 MCV 89.1 MCH 30.6 MCHC 34.3 RDW 13.2 Plt Count 277 MPV 8.5 Absolute Neuts (auto) 2.90 Absolute Lymphs (auto) 1.70 Absolute Monos (auto) 0.60 Absolute Eos (auto) 0.00 Absolute Basos (auto) 0.00 Neutrophils % 54.8 Lymphocytes % 32.8 Monocytes % 11.1 H Eosinophils % 0.6 L Basophils % 0.7 PT 12.7 H INR 1.100 PTT (SP) 30.8 Sodium 143 Potassium 4.3 Chloride 106 Carbon Dioxide 28 Anion Gap 13.3 BUN 10 Creatinine 0.46 L BUN/Creatinine Ratio 21.7 H Random Glucose 81 Serum Osmolality 283.1 Calcium 9.3 Magnesium 1.8 Total Bilirubin 0.3 Direct Bilirubin < 0.1 Indirect Bilirubin 0.2 AST 17 ALT 13 Alkaline Phosphatase 64 Creatine Kinase 74 CK-MB (CK-2) 1.1 CK-MB (CK-2) % Not Reportable Troponin I < 0.02 Serum Total Protein 7.1 Albumin 4.5 Lipase 35 Urine Color Yellow Urine Appearance Clear Urine pH 7.0 Ur Specific [place] 1.015 Urine Protein Negative Urine Glucose (UA) Negative Urine Ketones Negative Urine Blood Small H Urine Nitrite Negative Urine Bilirubin Negative Urine Urobilinogen 0.2 Ur Leukocyte Esterase Negative Urine RBC 1-3 Urine WBC 0-1 Ur Epithelial Cells 0-1 Amorphous Sediment 1+ Urine Bacteria 2+ H Stool Occult Blood Negative Urine Opiates Screen Urine Barbiturates Ur Phencyclidine Scrn U Amphetamin/Meth Scrn U Benzodiazepines Scrn U Cocaine Metab Screen U Cannabinoids Screen 09/07/17 Unknown WBC RBC Hgb Hct MCV MCH MCHC RDW Plt Count MPV Absolute Neuts (auto) Absolute Lymphs (auto) Absolute Monos (auto) Absolute Eos (auto) Absolute Basos (auto) Neutrophils % Lymphocytes % Monocytes % Eosinophils % Basophils % PT INR PTT (SP) Sodium Potassium Chloride Carbon Dioxide Anion Gap BUN Creatinine BUN/Creatinine Ratio Random Glucose Serum Osmolality Calcium Magnesium Total Bilirubin Direct Bilirubin Indirect Bilirubin AST ALT Alkaline Phosphatase Creatine Kinase CK-MB (CK-2) CK-MB (CK-2) % Troponin I Serum Total Protein Albumin Lipase Urine Color Urine Appearance Urine pH Ur Specific [place] Urine Protein Urine Glucose (UA) Urine Ketones Urine Blood Urine Nitrite Urine Bilirubin Urine Urobilinogen Ur Leukocyte Esterase Urine RBC Urine WBC Ur Epithelial Cells Amorphous Sediment Urine Bacteria Stool Occult Blood Urine Opiates Screen Negative Urine Barbiturates Negative Ur Phencyclidine Scrn Negative U Amphetamin/Meth Scrn Negative U Benzodiazepines Scrn Negative U Cocaine Metab Screen Negative U Cannabinoids Screen Positive H - EKG/XRAY/CT CT Ordered: Yes - abd/p-no acute abnormalities Departure - Departure Clinical Impression: Abdominal pain Qualifiers: Abdominal location: unspecified location Qualified Code(s): R10.9 - Unspecified abdominal pain Time of Disposition: 18:14 Disposition: Discharge to Home or Self Care Condition: Fair Departure Forms: ED Discharge - Pt. Copy, Patient Portal Self Enrollment Instructions: DI for Abdominal Pain-Adult, Gastroenteritis Diet Diet: other - Clear lquid for tonight then to advance diet as tolerated Referrals: Boy Marie MD [Primary Care Provider] - 1-2 Weeks Home Medications: Ambulatory Orders Duloxetine HCl [Cymbalta] 60 mg PO BID #0 07/11/13 Sertraline HCl [Zoloft] 100 mg PO DAILY 12/13/14 Clonazepam 2 mg PO BID 05/04/16 Trazodone HCl 150 mg PO BEDTIME 08/04/16 Metaxalone 800 mg PO TID PRN #30 tab 08/15/16 Hydrocodone-Acetaminophen [[place] 5-325 mg] 1 tab PO PRN PRN 08/20/16 Sumatriptan Succinate [Imitrex] 100 mg PO DAILY PRN #9 tab 10/04/16 Fdvmwdrrxqjuw-Rprk-Tuekvcohsz [Fioricet] 1 - 2 ea PO Q6HR PRN #20 tab 10/16/16 Ibuprofen 800 mg PO Q8HR PRN #30 tab 10/16/16 DULoxetine HCL [Cymbalta] 20 mg PO DAILY #15 cap 05/01/17 cloNAZepam [Klonopin] 1 mg PO BID #4 tab 01/22/18 Additional Instructions: Follow up with your primary Md for referral back to a [facility]
[2017-09-07 15:44] VITALS: TEMP 99.2
[2017-09-07] MEDS ORDERED: DICYCLOMINE HCL INJ 20 MG/2 ML AMP IM ONE (16:00)
[2017-09-07] MEDS ORDERED: ONDANSETRON INJ 4 MG/2 ML VIAL IV ONE (16:00)
[2017-09-07] MEDS ORDERED: LACTATED RINGERS 1,000 ML IVS ONE (16:00)
[2017-09-07] MEDS ORDERED: MORPHINE SULFATE INJ 10 MG/ML VIAL IV ONE (16:01)
--- NOTE | 2017-09-07 18:02 | CT ---
EXAM DESCRIPTION: Abdoment/Pelvis w/o Contrast CLINICAL HISTORY: pain COMPARISON: None Available. TECHNIQUE: Contiguous axial images of the abdomen and pelvis were obtained followed by reconstruction images. This exam was performed according to our departmental dose-optimization program, which includes automated exposure control, adjustment of the mA and/or kV according to patient size and/or use of iterative reconstruction technique. FINDINGS: The liver, spleen, pancreas and kidneys are within normal limits. There is no hydronephrosis or renal stones. The gallbladder is unremarkable by CT criteria. Adrenal glands are within normal limits. Aorta is of normal caliber and tapering. There is no free fluid in the abdomen or pelvis. There is no bowel obstruction. There is no stranding of the mesenteric fat to suggest an inflammatory response. The appendix is within normal limits. There is no pericecal inflammation. IMPRESSION: No acute intra-abdominal abnormality. Electronically signed by: Juan Carlos Guerrero 09/07/2017 6:00 PM CDT
[2017-09-07 18:36] VITALS: O2SAT 97
[2017-09-07 18:37] VITALS: BP 95/61
== END 2017-09-07 18:35 | disposition home or self-care (01) ==
LOC: ER 15:26
DX: R10.9 Unspecified abdominal pain (principal); K90.0 Celiac disease; G40.89 Other seizures; Z79.899 Other long term (current) drug therapy
CPT/HCPCS: 36415; 74176; 80048; 80076; 80307; 81001; 82270; 82550; 82553; 83690; 84484; 85025; 85610; 85730; J0500; J2270; J2405; J7120

== ENCOUNTER 2017-11-15 13:13 | Emergency (ER) | payer MEDICARE ==
[2017-11-15] MEDS ORDERED: SODIUM CHLORIDE 0.9% 1000ML 1,000 ML IVS ONE (13:53)
--- NOTE | 2017-11-15 13:53 | ED.PDOC ---
History of Present Illness - General Chief Complaint: Headache Time Seen by Provider: 11/15/17 13:49 Source: RN notes reviewed Exam Limitations: no limitations Additional Information: 57 YEAR OLD COMPLAINTS OF HEADACHE LAST 3-4 DAYS SHE HAS HAD NO RELEIF FROM THE TORADOL SHE GOT AT HER DOCTORS OFFICE SHE HAS HISTORY OF CHRONIC RECURRENT HEADACHES THAT STARTS IN THE NECK AND RADIATES TOT HE FRONT HAS NO FEVER NECK STIFFNESS NO PHOTOPHOBIA NO SINUS OR DENTAL ISSUES - History of Present Illness Timing/Duration: 24 hours Severity: moderate Improving Factors: nothing Allergies/Adverse Reactions: Allergies Cephalexin [From Keflex] Allergy (Unknown, Verified 11/15/17 14:55) per physician order sheet Erythromycin Allergy (Verified 11/15/17 14:55) Orphenadrine [From K-Flex] Allergy (Verified 11/15/17 14:55) Prochlorperazine [From Compazine] Allergy (Verified 11/15/17 14:55) Sulfa Drugs Allergy (Verified 11/15/17 14:55) Tetanus Toxoid Allergy (Verified 11/15/17 14:55) mycins Allergy (Uncoded 11/15/17 14:55) Home Medications: Ambulatory Orders Duloxetine HCl [Cymbalta] 60 mg PO BID #0 07/11/13 Sertraline HCl [Zoloft] 100 mg PO DAILY 12/13/14 Clonazepam 2 mg PO BID 05/04/16 Trazodone HCl 150 mg PO BEDTIME 08/04/16 Metaxalone 800 mg PO TID PRN #30 tab 08/15/16 Hydrocodone-Acetaminophen [[place] 5-325 mg] 1 tab PO PRN PRN 08/20/16 Sumatriptan Succinate [Imitrex] 100 mg PO DAILY PRN #9 tab 10/04/16 Nedjbmlpyudww-Tfyu-Jadgyihzvq [Fioricet] 1 - 2 ea PO Q6HR PRN #20 tab 10/16/16 Ibuprofen 800 mg PO Q8HR PRN #30 tab 10/16/16 DULoxetine HCL [Cymbalta] 20 mg PO DAILY #15 cap 05/01/17 cloNAZepam [Klonopin] 1 mg PO BID #4 tab 05/03/17 Review of Systems - Review of Systems Constitutional: States: no symptoms reported EENTM: States: no symptoms reported Respiratory: States: no symptoms reported Cardiology: States: no symptoms reported Gastrointestinal/Abdominal: States: no symptoms reported Genitourinary: States: no symptoms reported Musculoskeletal: States: no symptoms reported Skin: States: no symptoms reported Neurological: States: headache Endocrine: States: no symptoms reported Hematologic/Lymphatic: States: no symptoms reported Past Medical History (General) - Patient Medical History Hx Seizures: Yes - pseudoseizures Hx Stroke: No Hx Dementia: No Hx Asthma: No Hx of COPD: No Hx Cardiac Disorders: No Hx Congestive Heart Failure: No Hx Pacemaker: No Hx Hypertension: No Hx Thyroid Disease: No Hx Diabetes: No Hx Gastroesophageal Reflux: No Hx Renal Disease: No Hx Cancer: No Hx of HIV: No Hx Hepatitis C: No Hx MRSA: No MRSA Source:: nasal - Vaccination History Hx Tetanus, Diphtheria Vaccination: No Hx Influenza Vaccination: No Hx Pneumococcal Vaccination: No - Social History Hx Tobacco Use: No Hx Chewing Tobacco Use: No Hx Alcohol Use: No Hx Substance Use: No Hx Substance Use Treatment: No Hx Depression: No Hx Physical Abuse: No Hx Emotional Abuse: No Hx Suspected Abuse: No - Female History Patient : No Family Medical History - Family History Mother Family History: No Known Living Status: Unknown Hx Family Asthma: No Hx Family Cancer: Yes - basal cell ca-mom Hx Family;Other: pt unable to explain family history at this time Physical Exam - Physical Exam General Appearance: Obvious distress Eye Exam: bilateral normal, bilateral abnormal EOM, bilateral abnormal pupil, bilateral conjunctivae pale Ears, Nose, Throat: hearing grossly normal, normal ENT inspection, normal pharynx Neck: non-tender, full range of motion, supple Respiratory: chest non-tender, lungs clear, normal breath sounds, no respiratory distress, no accessory muscle use Cardiovascular/Chest: normal peripheral pulses, regular rate, rhythm, no edema, no gallop, no JVD, no murmur Peripheral Pulses: radial,right: 2+, radial,left: 2+, femoral,right: 2+, femoral ,left: 2+, popliteal,right: 2+, popliteal,left: 2+ Gastrointestinal/Abdominal: normal bowel sounds, non tender, soft, no organomegaly Neurologic: can pusher II-XII nml as tested, no motor/sensory deficits, alert, normal mood/affect, oriented x 3 Progress - Results/Orders Results/Orders: 3.00 PM SHE IS FEELING BETTER Departure - Departure Clinical Impression: Tension type headache, Chronic low back pain Time of Disposition: 14:59 Disposition: Discharge to Home or Self Care Condition: Good Departure Forms: ED Discharge - Pt. Copy, Patient Portal Self Enrollment Instructions: DI for Headache Referrals: Boy Marie MD [Primary Care Provider] - 1-2 Weeks Home Medications: Ambulatory Orders Duloxetine HCl [Cymbalta] 60 mg PO BID #0 07/11/13 Sertraline HCl [Zoloft] 100 mg PO DAILY 12/13/14 Clonazepam 2 mg PO BID 05/04/16 Trazodone HCl 150 mg PO BEDTIME 08/04/16 Metaxalone 800 mg PO TID PRN #30 tab 08/15/16 Hydrocodone-Acetaminophen [[place] 5-325 mg] 1 tab PO PRN PRN 08/20/16 Sumatriptan Succinate [Imitrex] 100 mg PO DAILY PRN #9 tab 10/04/16 Gehxampodczkl-Ksmt-Txkbwjgmsj [Fioricet] 1 - 2 ea PO Q6HR PRN #20 tab 10/16/16 Ibuprofen 800 mg PO Q8HR PRN #30 tab 10/16/16 DULoxetine HCL [Cymbalta] 20 mg PO DAILY #15 cap 05/01/17 cloNAZepam [Klonopin] 1 mg PO BID #4 tab 05/03/17
[2017-11-15] MEDS ORDERED: METOCLOPRAMIDE HCL INJ 10 MG/2 ML VIAL IV ONE (13:54)
[2017-11-15] MEDS ORDERED: fentaNYL CITRATE INJ 50 MCG/ML AMP IV ONE (13:54)
[2017-11-15] MEDS ORDERED: methylPREDNISolone SODIUM SUC 125 MG/2 ML VIAL IV ONE (13:54)
[2017-11-15 14:55] VITALS: TEMP 98.8
[2017-11-15 15:22] VITALS: BP 117/75; O2SAT 99
== END 2017-11-15 15:17 | disposition home or self-care (01) ==
LOC: ER 13:13
DX: G44.209 Tension-type headache, unspecified, not intractable (principal); M54.5 Low back pain; G89.29 Other chronic pain; Z88.8 Allergy status to other drugs, medicaments and biological substances; Z88.2 Allergy status to sulfonamides; Z88.7 Allergy status to serum and vaccine; Z88.1 Allergy status to other antibiotic agents; Z79.899 Other long term (current) drug therapy
CPT/HCPCS: J2765; J2930; J3010; J7030

== ENCOUNTER 2018-02-16 18:25 | Emergency (ER) | payer MEDICARE ==
[2018-02-16 18:59] VITALS: O2SAT 97
--- NOTE | 2018-02-16 19:10 | ED.PDOC ---
History of Present Illness - General Chief Complaint: Neuro Symptoms/Deficits Stated Complaint: seizure Time Seen by Provider: 02/16/18 18:29 Source: patient, family Exam Limitations: no limitations - History of Present Illness Initial Comments: AT BEDSIDE. PT LUCID AND CONVERSANT BUT EXTREMITY MUSCLES TIGHTENED. H/O SZ IN APR AND H/O PSEUDOSEIZURES. MILD SOB FROM HOLDING BODY TENSE. SATS 99%. Timing/Duration: episodic Severity: moderate Improving Factors: nothing Worsening Factors: nothing Associated Symptoms: muscle spasms Allergies/Adverse Reactions: Allergies Cephalexin [From Keflex] Allergy (Unknown, Verified 11/15/17 14:55) per physician order sheet Erythromycin Allergy (Verified 11/15/17 14:55) Orphenadrine [From K-Flex] Allergy (Verified 11/15/17 14:55) Prochlorperazine [From Compazine] Allergy (Verified 11/15/17 14:55) Sulfa Drugs Allergy (Verified 11/15/17 14:55) Tetanus Toxoid Allergy (Verified 11/15/17 14:55) mycins Allergy (Uncoded 11/15/17 14:55) Home Medications: Ambulatory Orders Duloxetine HCl [Cymbalta] 60 mg PO BID #0 07/11/13 Sertraline HCl [Zoloft] 100 mg PO DAILY 12/13/14 Clonazepam 2 mg PO BID 05/04/16 Trazodone HCl 150 mg PO BEDTIME 08/04/16 Metaxalone 800 mg PO TID PRN #30 tab 08/15/16 Hydrocodone-Acetaminophen [[place] 5-325 mg] 1 tab PO PRN PRN 08/20/16 Sumatriptan Succinate [Imitrex] 100 mg PO DAILY PRN #9 tab 10/04/16 Huvhpbceepixr-Uoax-Mxpieroxwc [Fioricet] 1 - 2 ea PO Q6HR PRN #20 tab 10/16/16 Ibuprofen 800 mg PO Q8HR PRN #30 tab 10/16/16 DULoxetine HCL [Cymbalta] 20 mg PO DAILY #15 cap 05/01/17 cloNAZepam [Klonopin] 1 mg PO BID #4 tab 05/03/17 Review of Systems - Review of Systems Constitutional: Denies: chills, diaphoresis, fever EENTM: States: no symptoms reported Respiratory: States: short of breath - MILD FROM MUSCLE SPASMS.. Denies: cough , wheezing Cardiology: States: no symptoms reported. Denies: chest pain Gastrointestinal/Abdominal: States: no symptoms reported. Denies: abdominal pain Genitourinary: States: no symptoms reported. Denies: dysuria, hematuria Musculoskeletal: States: see HPI. Denies: joint pain, muscle pain Skin: States: no symptoms reported Neurological: States: seizure. Denies: headache, pre-existing deficit, tingling , tremors Hematologic/Lymphatic: States: no symptoms reported All other Systems: Reviewed and Negative Past Medical History (General) - Patient Medical History Hx Seizures: Yes - pseudoseizures Hx Stroke: No Hx Dementia: No Hx Asthma: No Hx of COPD: No Hx Cardiac Disorders: No Hx Congestive Heart Failure: No Hx Pacemaker: No Hx Hypertension: No Hx Thyroid Disease: No Hx Diabetes: No Hx Gastroesophageal Reflux: No Hx Renal Disease: No Hx Cancer: No Hx of HIV: No Hx Hepatitis C: No Hx MRSA: No MRSA Source:: nasal - Vaccination History Hx Tetanus, Diphtheria Vaccination: No Hx Influenza Vaccination: No Hx Pneumococcal Vaccination: No Immunizations Up to Date: No - Social History Hx Tobacco Use: No Hx Chewing Tobacco Use: No Hx Alcohol Use: No Hx Substance Use: No Hx Substance Use Treatment: No Hx Depression: No Feels Threatened In Home Enviroment: No Feels Threatened In a Relationship: No Hx Physical Abuse: No Hx Emotional Abuse: No Hx Suspected Abuse: No - Activities of Daily Living Hospice Agency (if applicable):: None - Female History Patient is a Female of Child Bearing Age (10 -59 yrs old): Yes Patient : No Family Medical History - Family History Mother Family History: No Known Living Status: Unknown Hx Family Asthma: No Hx Family Cancer: Yes - basal cell ca-mom Hx Family;Other: pt unable to explain family history at this time Physical Exam - Physical Exam General Appearance: Alert, Restless Eye Exam: bilateral normal ENT Exam: normal ENT inspection, hearing grossly normal, TMs normal Neck: non-tender, full range of motion, supple, normal inspection Respiratory: chest non-tender, lungs clear, normal breath sounds, no respiratory distress Cardiovascular/Chest: normal peripheral pulses, regular rate, rhythm, no JVD, no murmur Peripheral Pulses: radial,right: 2+, radial,left: 2+ Gastrointestinal/Abdominal: normal bowel sounds, non tender, soft, no organomegaly, no pulsatile mass Back Exam: normal inspection, no vertebral tenderness Extremities Exam: non-tender, no evidence of injury, no edema, other - BUE AND BLE HELD IN FIXED POSITION. PT IS CONSCIOUS, ALERT, AND ABLE TO MAKE NL, LUCID CONVERSATION AND ANSWER QUESTIONS. Mental Status: alert, oriented x 3 media services coordinator Exam: normal hearing, normal speech, PERRL Coordination/Gait: other - ABNL NEURO MOTOR EXAM, PT'S EXTREMITIES HELD IN FIXED POSITION FROM MUSCLE SPASM/INABILITY TO RELAX. Motor/Sensory: no sensory deficit Skin Exam: normal color, warm/dry Progress - Progress Progress: 02/16/18 19:11 PT REC'D 2 MG ATIVAN BY EMS. SHE IS CONVERSANT AND COHERENT BUT HER MUSCLES ARE STILL TENSE, THUS I GAVE HER 2 MG IN ER. AFTER RE-EVALUATION, HER MUSCLES ARE STILL TENSE. SATS 99%, THUS GIVING 1 MG MORE ATIVAN. AT BEDSIDE AND HE IS ENCOURAGING HER TO BREATHE COMFORTABLY AND RELAX. THIS IS NOT A TYPICAL POSTICTAL STATE. INFORMS ME THIS IS USUAL FOR HER AND THAT DRS IN THE PAST HAVE STATED SHE DOES NOT FIT TYPICAL SEIZURES/ POSTICTAL. HE STATES SHE HAS BEEN TO NEUROLOGISTS AND HAD EXTENSIVE W/U. I ASKED WHY SHE IS NOT ON ANTI-SZ MED AND HE INFORMS ME THEY ARE ATTEMPTING TO GO A HOLISTIC APPROACH VIA CHIROPRACTOR AND CANNABINOID OIL. I INFORMED HIM FOR HER SAFETY, SHE SHOULD F/U W/ PCP AND BE STARTED ON ANTI-EPILEPTICS. I INFORMED HIM () THE CYMBALTA CAN LOWER SZ THRESHHOLD. HE MENTIONS THEY HAVE TRIED TO DC CYMBALTA SLOWLY IN THE PAST AND SHE HAD PSYCHOTIC EPISODES. THUS WENT BACK ON IT. 02/16/18 19:22 I WENT IN TO CHECK ON THE PT AND SHE IS NOW ACTIVELY SEIZING (GENERAL TONIC- CLONIC), THUS ORDERING TOTAL OF 4 MG INSTEAD OF 1. (I HAVE ALREADY ORDERED THE 1 MG SO I WILL ORDER 3 MORE). THUS SHE WILL HAVE RECEIVED A TOTAL OF 8 MG ATIVAN TODAY. 02/16/18 19:48 SEZURE ABORTED WITH HIGHER DOSE ATIVAN. PT NOW POSTICTAL AND RESTING COMFORTABLY. MUSCLE SPASMS HAVE RESOLVED. 02/16/18 19:53 SOB - RESOLVED WITH ATIVAN. SATS 99% ENTIRE ER STAY, CTAB, CXR AND EKG NEG. PT NOW BREATHING COMFORTABLY AND NO LONGER C/O SOB. 02/16/18 19:54 W/U FOR ACUTE CAUSES OF SZ ARE NEG: CBC, CMP, EKG, CXR. UA AND UDS UNOBTAINED PT VOIDED ON HERSELF DURING SZ. 02/16/18 20:02 PT FEELS BETTER, IS LUCID AND REQUESTS TO GO HOME. PT AND FEEL COMFORTABLE SINCE SHE IS NOW BACK TO HER BASELINE. NO MUSCLE SPASMS. SAFE FOR DC TO HOME. PT STATES SHE IS WORKING WITH PSYCHIATRIST REGARDING HER CYMBALTA. - EKG/XRAY/CT CT Ordered: No CT Interpretation Call Back: No Departure - Departure Clinical Impression: Seizure, Muscle spasm, Dyspnea Disposition: Discharge to Home or Self Care Condition: Good Departure Forms: ED Discharge - Pt. Copy, Patient Portal Self Enrollment Instructions: Seizures, Adult (DC) Diet: resume usual diet Activity: increase activity as tolerated Referrals: Boy Marie MD [Primary Care Provider] - 1-5 Days Home Medications: Ambulatory Orders Duloxetine HCl [Cymbalta] 60 mg PO BID #0 07/11/13 Sertraline HCl [Zoloft] 100 mg PO DAILY 12/13/14 Clonazepam 2 mg PO BID 05/04/16 Trazodone HCl 150 mg PO BEDTIME 08/04/16 Metaxalone 800 mg PO TID PRN #30 tab 08/15/16 Hydrocodone-Acetaminophen [[place] 5-325 mg] 1 tab PO PRN PRN 08/20/16 Sumatriptan Succinate [Imitrex] 100 mg PO DAILY PRN #9 tab 10/04/16 Ysogheaojtdtl-Vhbw-Pgukxzhmnz [Fioricet] 1 - 2 ea PO Q6HR PRN #20 tab 10/16/16 Ibuprofen 800 mg PO Q8HR PRN #30 tab 10/16/16 DULoxetine HCL [Cymbalta] 20 mg PO DAILY #15 cap 05/01/17 cloNAZepam [Klonopin] 1 mg PO BID #4 tab 05/03/17 Additional Instructions: Please follow-up with your doctor regarding the cymbalta and also please consider seizure prevention medication.
--- NOTE | 2018-02-16 19:16 | RAD ---
EXAM DESCRIPTION: Chest,1 View CLINICAL HISTORY: SOB FROM SEIZURE COMPARISON: 08/15/2016 FINDINGS: Cardiac silhouette is within normal limits. There is no focal parenchymal or pleural disease. Visualized osseous structures are within normal limits. IMPRESSION: No evidence of acute cardiopulmonary disease. Electronically signed by: Juan Carlos Guerrero 02/16/2018 7:15 PM [employer]
[2018-02-16 20:14] VITALS: TEMP 97.8
[2018-02-16 20:33] VITALS: BP 114/75
== END 2018-02-16 20:30 | disposition home or self-care (01) ==
LOC: ER 18:25
DX: R56.9 Unspecified convulsions (principal); R06.00 Dyspnea, unspecified; M62.838 Other muscle spasm; Z79.899 Other long term (current) drug therapy; Z88.8 Allergy status to other drugs, medicaments and biological substances; Z88.7 Allergy status to serum and vaccine; Z88.1 Allergy status to other antibiotic agents; Z88.2 Allergy status to sulfonamides
CPT/HCPCS: 71045; 80053; 80307; 81001; 85025; 87086; 93005; J2060

== ENCOUNTER 2018-03-29 19:49 | Emergency (ER) | payer MEDICARE ==
[2018-03-29] MEDS ORDERED: SODIUM CHLORIDE 0.9% (FLUSH) 10 ML SYG IV PRN (20:50)
[2018-03-29] MEDS ORDERED: KETOROLAC TROMETHAMINE INJ 30 MG/ML VIAL IV ONE (20:50)
[2018-03-29] MEDS ORDERED: SODIUM CHLORIDE 0.9% 1000ML 1,000 ML IVS ONE (20:50)
--- NOTE | 2018-03-29 22:21 | CT ---
CLINICAL HISTORY: right flank pain COMPARISON: September 07, 2017. TECHNIQUE: CT ABDOMEN PELVIS WITHOUT IV CONTRAST on 03/29/2018 8:53 PM SCRAP BURNER This exam was performed according to our departmental dose-optimization program, which includes automated exposure control, adjustment of the mA and/or kV according to patient size and/or use of iterative reconstruction technique. FINDINGS: Lower lungs are clear. Abdomen: The liver is normal in appearance. There is no biliary dilatation. Gallbladder is normal in appearance. The pancreas and spleen are normal in appearance. The adrenal glands and kidneys are unremarkable. Abdominal aorta is normal in course and caliber without aneurysm. There is no free air. There is no retroperitoneal adenopathy. Pelvis: There is mild diverticulosis of the distal colon. Urinary bladder is unremarkable. There is no free fluid. Hysterectomy was performed. Appendix is normal. Skeleton: There are no acute osseous findings. No suspicious bony lesions. There are postoperative changes of lower lumbar fusion. IMPRESSION: No acute inflammatory process. No renal or ureteral calculi. Electronically signed by: Cal Zapien MD 03/29/2018 10:20 PM SCRAP BURNER
[2018-03-29] MEDS: KETOROLAC TROMETHAMINE INJ 60 MG/2 ML VIAL IM ONE ×2 (22:36→22:41)
[2018-03-29 23:08] VITALS: BP 115/83; TEMP 97.9; O2SAT 96
--- NOTE | 2018-03-29 23:43 | ED.PDOC ---
History of Present Illness - General Chief Complaint: Abdominal Pain Stated Complaint: low pelvic abd pain, diarrhea Time Seen by Provider: 03/29/18 20:03 Information Source: patient, Vital Signs reviewed Exam Limitations: no limitations - History of Present Illness Initial Comments: c/o abd cramping & diarrhea x 1 day Abdominal Pain Onset Location: other - diffuse but moreso in the pelvis Pain Radiation: no radiation Quality: cramping Timing/Duration: 24 hours Improving Factors: nothing Worsening Factors: nothing Associated Symptoms: headache, nausea/vomiting, weakness Review of Systems - Review of Systems Constitutional: States: see HPI, weakness. Denies: fever EENTM: States: no symptoms reported Respiratory: States: no symptoms reported Cardiology: States: no symptoms reported Gastrointestinal/Abdominal: States: see HPI, abdominal pain, diarrhea - h/o C. diff but no abx within the last 3 months; no rectal bleeding, nausea Genitourinary: States: see HPI Musculoskeletal: States: no symptoms reported Skin: States: no symptoms reported Neurological: States: see HPI Endocrine: States: no symptoms reported Past Medical History (General) - Patient Medical History Hx Seizures: Yes - pseudoseizures Hx Stroke: No Hx Dementia: No Hx Asthma: No Hx of COPD: No Hx Cardiac Disorders: No Hx Congestive Heart Failure: No Hx Pacemaker: No Hx Hypertension: No Hx Thyroid Disease: No Hx Diabetes: No Hx Gastroesophageal Reflux: No Hx Renal Disease: No Hx Cancer: No Hx of HIV: No Hx Hepatitis C: No Hx MRSA: No MRSA Source:: nasal Surgical History: other - Vaccination History Hx Tetanus, Diphtheria Vaccination: No Hx Influenza Vaccination: No Hx Pneumococcal Vaccination: No - Social History Hx Tobacco Use: No Hx Chewing Tobacco Use: No Hx Alcohol Use: No Hx Substance Use: No Hx Substance Use Treatment: No Hx Depression: No Hx Physical Abuse: No Hx Emotional Abuse: No Hx Suspected Abuse: No - Female History Patient : No - Triage Comment ED Triage Comment: Pt report she is having mild low abd pelvic pain. She started having diarrhea this a.m. and also having urgency to void. Pt reports she has had c-diff before and afraid to get it again. Family Medical History - Family History Mother Family History: No Known Living Status: Unknown Hx Family Asthma: No Hx Family Cancer: Yes - basal cell ca-mom Hx Family;Other: pt unable to explain family history at this time Physical Exam - Physical Exam General Appearance: Alert, Comfortable, No apparent distress Eyes, Ears, Nose, Throat Exam: other - pink conjunctiva; anicteric Neck: supple, normal inspection Respiratory: no respiratory distress Cardiovascular/Chest: normal peripheral pulses, regular rate, rhythm Peripheral Pulses: 1+ Gastrointestinal/Abdominal: soft, no organomegaly, tenderness - diffuse Extremity: normal range of motion, normal inspection, normal capillary refill Neurologic: alert, normal mood/affect, oriented x 3 Skin Exam: normal color, warm/dry Special Observations: C/O out of proportion Progress - Progress Progress: 03/29/18 23:45 Late note: the nurse advises me that the patient left AMA earlier. She had been up & about earlier. - Results/Orders Results/Orders: UA = trace LE + 5 WBCs WBC nml Chem = mildly elev BUN/Cr ratio - EKG/XRAY/CT CT Ordered: Yes - no acute findings except perhaps bladder wall thickening Departure - Departure Clinical Impression: Abdominal pain in female Time of Disposition: 06:14 Disposition: Left Against Medical Advice Condition: Fair Departure Forms: ED Discharge - Pt. Copy, Patient Portal Self Enrollment Instructions: DI for Abdominal Pain-Adult Referrals: Boy Marie MD [Primary Care Provider] - 03/30/18 Home Medications: Ambulatory Orders Duloxetine HCl [Cymbalta] 60 mg PO BID #0 07/11/13 Sertraline HCl [Zoloft] 100 mg PO DAILY 12/13/14 Clonazepam 2 mg PO BID 05/04/16 Trazodone HCl 150 mg PO BEDTIME 08/04/16 Metaxalone 800 mg PO TID PRN #30 tab 08/15/16 Hydrocodone-Acetaminophen [[place] 5-325 mg] 1 tab PO PRN PRN 08/20/16 Sumatriptan Succinate [Imitrex] 100 mg PO DAILY PRN #9 tab 10/04/16 Oucblogmwvjya-Bpfb-Ktpnvorqpp [Fioricet] 1 - 2 ea PO Q6HR PRN #20 tab 10/16/16 Ibuprofen 800 mg PO Q8HR PRN #30 tab 10/16/16 DULoxetine HCL [Cymbalta] 20 mg PO DAILY #15 cap 05/01/17 cloNAZepam [Klonopin] 1 mg PO BID #4 tab 05/03/17
== END 2018-03-29 23:00 | disposition left against medical advice (07) ==
LOC: ER 19:49
DX: R10.2 Pelvic and perineal pain (principal); R19.7 Diarrhea, unspecified; R39.15 Urgency of urination; Z53.29 Procedure and treatment not carried out because of patient's decision for other reasons; Z86.19 Personal history of other infectious and parasitic diseases
CPT/HCPCS: 74176; 80048; 81001; 85025; J1885

== ENCOUNTER 2018-05-02 20:04 | Emergency (ER) | payer MEDICARE ==
[2018-05-02] MEDS ORDERED: KETOROLAC TROMETHAMINE INJ 30 MG/ML VIAL IM ONE (21:43)
[2018-05-02] MEDS ORDERED: PHENAZOPYRIDINE HCL 200 MG TAB PO ONE (21:59)
[2018-05-02 22:32] VITALS: TEMP 98.1
--- NOTE | 2018-05-02 23:03 | ED.PDOC ---
History of Present Illness - General Chief Complaint: Problem Stated Complaint: can't urinate for the past 5-6 hours Time Seen by Provider: 05/02/18 21:11 Source: patient Exam Limitations: no limitations - History of Present Illness Initial Comments: Patient presents with anuria for 5-6 hours. She says that her bladder hurts. She would like pain medications for this. She says that "it happens when I have an infection". No other complaints. Timing/Duration: 4-6 hours Severity: mild Improving Factors: nothing Worsening Factors: nothing Associated Symptoms: denies symptoms Allergies/Adverse Reactions: Allergies Cephalexin [From Keflex] Allergy (Unknown, Verified 11/15/17 14:55) per physician order sheet Erythromycin Allergy (Verified 05/02/18 22:33) Orphenadrine [From K-Flex] Allergy (Verified 11/15/17 14:55) Prochlorperazine [From Compazine] Allergy (Verified 05/02/18 22:33) Sulfa Drugs Allergy (Verified 05/02/18 22:33) Tetanus Toxoid Allergy (Verified 11/15/17 14:55) mycins Allergy (Uncoded 11/15/17 14:55) Home Medications: Ambulatory Orders Duloxetine HCl [Cymbalta] 60 mg PO BID #0 07/11/13 Sertraline HCl [Zoloft] 100 mg PO DAILY 12/13/14 Clonazepam 2 mg PO BID 05/04/16 Trazodone HCl 150 mg PO BEDTIME 08/04/16 Metaxalone 800 mg PO TID PRN #30 tab 08/15/16 Hydrocodone-Acetaminophen [[place]ry 5-325 mg] 1 tab PO PRN PRN 08/20/16 Sumatriptan Succinate [Imitrex] 100 mg PO DAILY PRN #9 tab 10/04/16 Kouvuqejftsrs-Enga-Dyfptdifmr [Fioricet] 1 - 2 ea PO Q6HR PRN #20 tab 10/16/16 Ibuprofen 800 mg PO Q8HR PRN #30 tab 10/16/16 DULoxetine HCL [Cymbalta] 20 mg PO DAILY #15 cap 05/01/17 cloNAZepam [Klonopin] 1 mg PO BID #4 tab 05/03/17 Review of Systems - Review of Systems Constitutional: States: no symptoms reported EENTM: States: no symptoms reported Respiratory: States: no symptoms reported Cardiology: States: no symptoms reported Gastrointestinal/Abdominal: States: no symptoms reported Genitourinary: States: see HPI Musculoskeletal: States: no symptoms reported Skin: States: no symptoms reported Neurological: States: no symptoms reported Endocrine: States: no symptoms reported Hematologic/Lymphatic: States: no symptoms reported Past Medical History (General) - Patient Medical History Hx Seizures: Yes - pseudoseizures Hx Stroke: No Hx Dementia: No Hx Asthma: No Hx of COPD: No Hx Cardiac Disorders: No Hx Congestive Heart Failure: No Hx Pacemaker: No Hx Hypertension: No Hx Thyroid Disease: No Hx Diabetes: No Hx Gastroesophageal Reflux: No Hx Renal Disease: No Hx Cancer: No Hx of HIV: No Hx Hepatitis C: No Hx MRSA: No MRSA Source:: nasal Surgical History: Hysterectomy - Vaccination History Hx Tetanus, Diphtheria Vaccination: No Hx Influenza Vaccination: No Hx Pneumococcal Vaccination: No - Social History Hx Tobacco Use: No Hx Chewing Tobacco Use: No Hx Alcohol Use: No Hx Substance Use: No Hx Substance Use Treatment: No Hx Depression: No Hx Physical Abuse: No Hx Emotional Abuse: No Hx Suspected Abuse: No - Female History Patient : No Family Medical History - Family History Mother Family History: No Known Living Status: Unknown Hx Family Asthma: No Hx Family Cancer: Yes - basal cell ca-mom Hx Family;Other: pt unable to explain family history at this time Physical Exam - Physical Exam General Appearance: Alert Respiratory: lungs clear, normal breath sounds Cardiovascular/Chest: normal peripheral pulses, regular rate, rhythm Gastrointestinal/Abdominal: normal bowel sounds, non tender, soft Progress - Progress Progress: 05/02/18 23:04 Laboratory Tests 05/02/18 21:41 Urine Color Yellow Urine Appearance Clear Urine pH 5.5 Ur Specific [place] 1.025 Urine Protein Negative Urine Glucose (UA) Negative Urine Ketones Trace Urine Blood Small H Urine Nitrite Negative Urine Bilirubin Negative Urine Urobilinogen 0.2 Ur Leukocyte Esterase Trace H Urine RBC 3-5 H Urine WBC 3-5 H Ur Epithelial Cells 5-10 Urine Bacteria 1+ UA not convincing for infection but it is possible that it is the beginning of one. Patient received a urine cath and there was 200 cc out. She was given Toradol 30 mg IM x one and pyridium 200 mg po x one. She wanted more pain medications but did not seem to be in pain at all. She was offered nitrofurantoin for the bacteruria but she refused. Departure - Departure Clinical Impression: Bladder pain Disposition: Discharge to Home or Self Care Condition: Good Departure Forms: ED Discharge - Pt. Copy, Patient Portal Self Enrollment Diet: other - as per your regular doctor Activity: other - as per your regular doctor Referrals: Boy Marie MD [Primary Care Provider] - 1-2 Weeks Home Medications: Ambulatory Orders Duloxetine HCl [Cymbalta] 60 mg PO BID #0 07/11/13 Sertraline HCl [Zoloft] 100 mg PO DAILY 12/13/14 Clonazepam 2 mg PO BID 05/04/16 Trazodone HCl 150 mg PO BEDTIME 08/04/16 Metaxalone 800 mg PO TID PRN #30 tab 08/15/16 Hydrocodone-Acetaminophen [[place]ry 5-325 mg] 1 tab PO PRN PRN 08/20/16 Sumatriptan Succinate [Imitrex] 100 mg PO DAILY PRN #9 tab 10/04/16 Bdtwgbcujsugk-Iwxu-Zovqqgtucy [Fioricet] 1 - 2 ea PO Q6HR PRN #20 tab 10/16/16 Ibuprofen 800 mg PO Q8HR PRN #30 tab 10/16/16 DULoxetine HCL [Cymbalta] 20 mg PO DAILY #15 cap 05/01/17 cloNAZepam [Klonopin] 1 mg PO BID #4 tab 05/03/17 Additional Instructions: See a coagulant dipper or a family doctor if you feel that your bladder is having spasms or for pain with urination. Increase oral fluids.
[2018-05-02 23:19] VITALS: BP 101/64; O2SAT 100
== END 2018-05-02 23:19 | disposition home or self-care (01) ==
LOC: ER 20:04
DX: R10.9 Unspecified abdominal pain (principal); R34 Anuria and oliguria; Z79.899 Other long term (current) drug therapy; Z88.8 Allergy status to other drugs, medicaments and biological substances; Z88.1 Allergy status to other antibiotic agents; Z88.2 Allergy status to sulfonamides; Z88.7 Allergy status to serum and vaccine
CPT/HCPCS: 81001; J1885

== ENCOUNTER → 2018-05-16 | Outpatient (CLI) | payer MEDICARE ==
--- NOTE | 2018-05-16 12:27 | MRI ---
EXAM DESCRIPTION: Lumbar Spine w/o Contrast : Magnetic Resonance Imaging. CLINICAL HISTORY: RADICULOPATHY COMPARISON: MRI lumbar spine scan 05/10/2012. TECHNIQUE: Multiplanar, multiple standard sequences, non contrast MRI, lumbar spine. FINDINGS: Posterior transpedicular fusion L4 and S1 to the right of midline with unilateral connecting delicia. Interbody fusion device and partial bony fusion at L5-S1. No canal or foraminal stenosis. No paravertebral soft tissue mass or fluid collection. Minimal facet arthrosis bilaterally. Interbody fusion fusion device L4-5 with subsidence into the L4 and L5 endplates. Partial bony fusion. Minimal narrowing of the foramina bilaterally. No paravertebral soft tissue mass or fluid collection. L3-4: Moderate disc space loss and minimal disc desiccation. Trace anterolisthesis. Anterior Schmorl's node superior L4 endplate. Posterior minimal Modic type I endplate reactive changes. Posterior small broad-based disc bulge. AP canal diameter 12 mm. Mild bilateral foraminal narrowing more on the left. Bilateral facet arthrosis more on the left. Mild flavum ligament hypertrophy. L2-3: No disc desiccation. Minimal disc space loss and disc space is maintained. Bilateral mild facet arthrosis and flavum ligament hypertrophy. Canal and foramina are patent. L1-2: Normal signal in the disc with disc space maintained. No significant bulging. Posterior elements unremarkable. Canal and foramina are patent. T12-L1: Normal signal in the disc with disc space maintained. Posterior elements unremarkable. Canal and foramina are patent. Conus terminates at this level. No significant scoliosis. Paravertebral soft tissues paraspinal muscle atrophy.. Normal marrow signal in the remaining vertebral bodies and the posterior elements. Vertebral bodies are not compressed at any level. IMPRESSION: 1. Posterior transpedicular spinal fusion L4-S1 and lateral on the left. No abnormal marrow changes. Interbody fusion devices stable with partial ossification. No paravertebral soft tissue mass or fluid collection. No canal or foraminal stenosis. Stable since the prior study. Subsidence into the endplates at L4-5 appears stable. Bilateral paraspinal muscle atrophy is unchanged. 2. Disc desiccation at other levels. Early spondylosis posterior L3-4 with small broad-based disc bulge. Mild canal and foraminal narrowing. Stable since the prior study. Electronically signed by: Juan Carlos Kapadia MD 05/16/2018 12:25 PM [facility]
== END ==
LOC: MRI 08:00
PROVIDERS: ATTEND Urology
DX: M54.17 Radiculopathy, lumbosacral region (principal); R10.2 Pelvic and perineal pain; R33.8 Other retention of urine; Z98.1 Arthrodesis status

== ENCOUNTER 2018-07-25 16:53 | Emergency (ER) | payer MEDICARE ==
[2018-07-25] MEDS ORDERED: ALPRAZolam 0.25 MG TAB PO ONE (17:05)
[2018-07-25] MEDS ORDERED: ALPRAZolam 0.5 MG TAB ONE (17:18)
--- NOTE | 2018-07-25 17:20 | ED.PDOC ---
History of Present Illness - General Chief Complaint: Neuro Symptoms/Deficits Time Seen by Provider: 07/25/18 16:54 Source: patient, EMS notes reviewed Exam Limitations: no limitations - History of Present Illness Initial Comments: the patient is a 58-year-old female presenting to the emergency room secondary to having had what appears to be a pseudoseizure in the outpatient clinic. no evidence of any real postictal state. EMS witnessed the seizure as denied. The patient is easily distractible and shaking stops. When she feels that no one is looking her way shaking stops. The pseudoseizures consist of shaking of the upper extremities. She has had a long documented history of this. The reason she presented to the clinic was due to bruising of her upper extremitiesand an area of bruising to the posterior left thigh that has been present for a week or 2. She has had a little bit of bleeding of the gums when brushing her teeth. I see no evidence of petechia. I see no evidence of nasal bleeding. No subconjunctival hemorrhages. Bruising to the forearms appear to be minimal and possibly traumatic. Apparently the patient tripped and fell in her home a few days ago while assisting someone else. She has a mild abrasion to her forehead. She is not having any neck pain and did not have any significant headache after the fall. She does have a mild headache currently that started less than hour ago. No fevers. She is alert and oriented. She reports that she has had a little bit of blood on the toilet paper with wiping however there is been no blood in the toilet. No bloody stools. she has had a recent small hemorrhoid. She has had a little bit of constipation. No loss of consciousness.she does have some mild deeper bruising to the forearms. She also has a few spots of ecchymosis to her forearms as is not uncommon with age. Timing/Duration: 1/2 hour Severity: mild Improving Factors: nothing Worsening Factors: nothing Associated Symptoms: headaches, malaise Allergies/Adverse Reactions: Allergies Cephalexin [From Keflex] Allergy (Unknown, Verified 11/15/17 14:55) per physician order sheet Erythromycin Allergy (Verified 05/02/18 22:33) Orphenadrine [From K-Flex] Allergy (Verified 11/15/17 14:55) Prochlorperazine [From Compazine] Allergy (Verified 05/02/18 22:33) Sulfa Drugs Allergy (Verified 05/02/18 22:33) Tetanus Toxoid Allergy (Verified 11/15/17 14:55) mycins Allergy (Uncoded 11/15/17 14:55) Home Medications: Ambulatory Orders Duloxetine HCl [Cymbalta] 60 mg PO BID #0 07/11/13 Sertraline HCl [Zoloft] 100 mg PO DAILY 12/13/14 Clonazepam 2 mg PO BID 05/04/16 Trazodone HCl 150 mg PO BEDTIME 08/04/16 Metaxalone 800 mg PO TID PRN #30 tab 08/15/16 Hydrocodone-Acetaminophen [[place] 5-325 mg] 1 tab PO PRN PRN 08/20/16 Sumatriptan Succinate [Imitrex] 100 mg PO DAILY PRN #9 tab 10/04/16 Wooxfavqbvgdm-Elrs-Zckuuwzqol [Fioricet] 1 - 2 ea PO Q6HR PRN #20 tab 10/16/16 Ibuprofen 800 mg PO Q8HR PRN #30 tab 10/16/16 DULoxetine HCL [Cymbalta] 20 mg PO DAILY #15 cap 05/01/17 cloNAZepam [Klonopin] 1 mg PO BID #4 tab 05/03/17 Review of Systems - Review of Systems Constitutional: States: malaise EENTM: States: no symptoms reported Respiratory: States: no symptoms reported Cardiology: States: no symptoms reported Gastrointestinal/Abdominal: States: no symptoms reported - though she did have some nausea and vomiting a few days ago. Genitourinary: States: no symptoms reported Musculoskeletal: States: no symptoms reported Skin: States: no symptoms reported Neurological: States: see HPI Endocrine: States: no symptoms reported All other Systems: No Change from Baseline Past Medical History (General) - Patient Medical History Hx Seizures: Yes - pseudoseizures Hx Stroke: No Hx Dementia: No Hx Asthma: No Hx of COPD: No Hx Cardiac Disorders: No Hx Congestive Heart Failure: No Hx Pacemaker: No Hx Hypertension: No Hx Thyroid Disease: No Hx Diabetes: No Hx Gastroesophageal Reflux: No Hx Renal Disease: No Hx Cancer: No Hx of HIV: No Hx Hepatitis C: No Hx MRSA: No MRSA Source:: nasal - Vaccination History Hx Tetanus, Diphtheria Vaccination: No Hx Influenza Vaccination: No Hx Pneumococcal Vaccination: No - Social History Hx Tobacco Use: No Hx Chewing Tobacco Use: No Hx Alcohol Use: No Hx Substance Use: No Hx Substance Use Treatment: No Hx Depression: No Hx Physical Abuse: No Hx Emotional Abuse: No Hx Suspected Abuse: No - Female History Patient : No Family Medical History - Family History Mother Family History: No Known Living Status: Unknown Hx Family Asthma: No Hx Family Cancer: Yes - basal cell ca-mom Hx Family;Other: pt unable to explain family history at this time Physical Exam - Physical Exam General Appearance: Alert, No apparent distress Eye Exam: bilateral normal Ears, Nose, Throat: hearing grossly normal, normal ENT inspection Neck: full range of motion, supple Respiratory: lungs clear, normal breath sounds, no respiratory distress, no accessory muscle use Cardiovascular/Chest: normal peripheral pulses, regular rate, rhythm, no edema Peripheral Pulses: radial,right: 2+, radial,left: 2+ Gastrointestinal/Abdominal: non tender - no rebound or peritoneal signs., soft Rectal Exam: deferred Back Exam: no CVA tenderness, no vertebral tenderness - previous scars from surgeries are noted Extremity: normal range of motion, normal inspection, no pedal edema, normal capillary refill, other - mild bruising to the posterior left thigh Neurologic: physician practice coordinator II-XII nml as tested, alert, oriented x 3, other - shaking of the upper extremities bilaterally that is distractible Skin Exam: other - see history of present illness Progress - Progress Progress: 07/25/18 18:06 the patient is a 58-year-old female presenting to the emergency room secondary to bruising to her upper extremities and a pseudoseizure while at the clinic. Pseudoseizure has ceased. The patient does have a mild headache and has received a dose of Fioricet and Toradol. Laboratory work and workup for any bruising is essentially normal. She can take a Centrum Silver 2 tablets daily for any possible mineral deficiency. She is keep routine follow-up with her primary care doctor. She is neurologically intact at this time. No evidence of any active bleeding. She does need to treat her constipation for the hemorrhoid. Increase fluid intake. Follow back up with PCP in one week. - Results/Orders Results/Orders: acute abdominal series showed no acute pathology. Final read is pending. She does have some constipation. Laboratory Tests 07/25/18 07/25/18 07/25/18 17:06 17:21 17:21 WBC 9.4 RBC 4.27 Hgb 13.3 Hct 39.5 MCV 92.5 MCH 31.2 H MCHC 33.7 RDW 13.7 Plt Count 250 MPV 8.3 Absolute Neuts (auto) 6.50 Absolute Lymphs (auto) 1.90 Absolute Monos (auto) 0.90 H Absolute Eos (auto) 0.00 Absolute Basos (auto) 0.10 Neutrophils % 69.3 Lymphocytes % 20.4 Monocytes % 9.3 H Eosinophils % 0.3 L Basophils % 0.7 PT INR PTT (SP) Sodium 140 Potassium 4.2 Chloride 108 Carbon Dioxide 19 L Anion Gap 17.2 BUN 11 Creatinine 0.55 L BUN/Creatinine Ratio 20.0 Random Glucose 74 Serum Osmolality 277.4 Calcium 8.6 Magnesium 1.9 Total Bilirubin 0.7 AST 29 ALT 25 Alkaline Phosphatase 63 Creatine Kinase 160 H CK-MB (CK-2) 4.7 H* CK-MB (CK-2) % 2.94 Troponin I 0.03 Serum Total Protein 6.5 Albumin 4.0 Globulin 2.5 Albumin/Globulin Ratio 1.6 Urine Color Yellow Urine Appearance Clear Urine pH 5.5 Ur Specific [place] <= 1.005 Urine Protein Negative Urine Glucose (UA) Negative Urine Ketones Negative Urine Blood Small H Urine Nitrite Negative Urine Bilirubin Negative Urine Urobilinogen 0.2 Ur Leukocyte Esterase Negative Urine RBC 0-1 Urine WBC 0 Ur Epithelial Cells 0-1 Urine Bacteria 0 07/25/18 17:21 WBC RBC Hgb Hct MCV MCH MCHC RDW Plt Count MPV Absolute Neuts (auto) Absolute Lymphs (auto) Absolute Monos (auto) Absolute Eos (auto) Absolute Basos (auto) Neutrophils % Lymphocytes % Monocytes % Eosinophils % Basophils % PT 9.9 INR 0.99 PTT (SP) 22.9 Sodium Potassium Chloride Carbon Dioxide Anion Gap BUN Creatinine BUN/Creatinine Ratio Random Glucose Serum Osmolality Calcium Magnesium Total Bilirubin AST ALT Alkaline Phosphatase Creatine Kinase CK-MB (CK-2) CK-MB (CK-2) % Troponin I Serum Total Protein Albumin Globulin Albumin/Globulin Ratio Urine Color Urine Appearance Urine pH Ur Specific [place] Urine Protein Urine Glucose (UA) Urine Ketones Urine Blood Urine Nitrite Urine Bilirubin Urine Urobilinogen Ur Leukocyte Esterase Urine RBC Urine WBC Ur Epithelial Cells Urine Bacteria Departure - Departure Clinical Impression: Pseudoseizure, Bruising, Tension headache Constipation Qualifiers: Constipation type: unspecified constipation type Qualified Code(s): K59.00 - Constipation, unspecified Disposition: Discharge to Home or Self Care Condition: Fair Departure Forms: ED Discharge - Pt. Copy, Patient Portal Self Enrollment Instructions: Constipation, Adult (DC), Contusion (DC), Tension Headache (DC) Diet: other - High fiber diet to help with constipation Activity: increase activity as tolerated Referrals: Boy Marie MD [Primary Care Provider] - 1-2 Weeks Home Medications: Ambulatory Orders Duloxetine HCl [Cymbalta] 60 mg PO BID #0 07/11/13 Sertraline HCl [Zoloft] 100 mg PO DAILY 12/13/14 Clonazepam 2 mg PO BID 05/04/16 Trazodone HCl 150 mg PO BEDTIME 08/04/16 Metaxalone 800 mg PO TID PRN #30 tab 08/15/16 Hydrocodone-Acetaminophen [[place] 5-325 mg] 1 tab PO PRN PRN 08/20/16 Sumatriptan Succinate [Imitrex] 100 mg PO DAILY PRN #9 tab 10/04/16 Vnqyrwohslsua-Bsat-Apqitcjoin [Fioricet] 1 - 2 ea PO Q6HR PRN #20 tab 10/16/16 Ibuprofen 800 mg PO Q8HR PRN #30 tab 10/16/16 DULoxetine HCL [Cymbalta] 20 mg PO DAILY #15 cap 05/01/17 cloNAZepam [Klonopin] 1 mg PO BID #4 tab 05/03/17 Additional Instructions: Bruising appears to be fairly limited. Laboratory workup shows no significant abnormality. She can take 2 Centrum Silver daily at a time and a different from her other medications to help with any mild mineral or vitamin deficiency. She needs to keep herself well hydrated and increase fiber in her diet as her abdominal x-ray shows some mild to moderate constipation. Keep routine follow up with primary care doctor. ER warnings are given for any acute worsening. Increasing fluid intake will also help the headaches.
[2018-07-25] MEDS ORDERED: KETOROLAC TROMETHAMINE INJ 30 MG/ML VIAL IV ONE (17:45)
[2018-07-25] MEDS ORDERED: ACETAMINOPHEN-CAFF-BUTALBITAL 1 EA TAB PO ONE (17:45)
[2018-07-25 17:47] VITALS: O2SAT 98
[2018-07-25 18:31] VITALS: BP 103/58; TEMP 97.9
== END 2018-07-25 18:15 | disposition home or self-care (01) ==
LOC: ER 16:53
DX: R56.9 Unspecified convulsions (principal); G44.209 Tension-type headache, unspecified, not intractable; K59.00 Constipation, unspecified; S70.12XA Contusion of left thigh, initial encounter; S50.11XA Contusion of right forearm, initial encounter; S50.12XA Contusion of left forearm, initial encounter; S00.81XA Abrasion of other part of head, initial encounter; W01.0XXA Fall on same level from slipping, tripping and stumbling without subsequent striking against object, initial encounter; Y92.009 Unspecified place in unspecified non-institutional (private) residence as the place of occurrence of the external cause; Z79.899 Other long term (current) drug therapy; Z88.7 Allergy status to serum and vaccine; Z88.8 Allergy status to other drugs, medicaments and biological substances; Z88.1 Allergy status to other antibiotic agents; Z88.2 Allergy status to sulfonamides
CPT/HCPCS: 36415; 74019; 80053; 81001; 82550; 82553; 83735; 84484; 85025; 85610; 85730; J1885

== ENCOUNTER 2018-10-29 12:56 | Emergency (ER) | payer MEDICARE ==
[2018-10-29] MEDS ORDERED: ONDANSETRON ODT 8 MG TAB SL ONE (13:21)
[2018-10-29] MEDS ORDERED: SODIUM CHLORIDE 0.9% 1000ML 1,000 ML IVS ONE (13:21)
[2018-10-29 14:04] VITALS: TEMP 98.8
[2018-10-29] MEDS ORDERED: HYDROcodone 10MG/APAP 325MG 1 EA TAB PO ONE (14:24)
--- NOTE | 2018-10-29 14:30 | RAD ---
EXAM: TWO VIEW SUPINE and UPRIGHT ABDOMEN AND PA CHEST RADIOGRAPHS CLINICAL INDICATION: Nausea and vomiting for 4 days. COMPARISON: Compared to the abdomen radiographs of July 25, 2018. FINDINGS: Sequela of remote left clavicular ORIF. Cardiac size and pulmonary vasculature are normal. 4 mm dense peripheral left upper lobe nodule. This nodule is probably unchanged since the March 26, 2014 comparison examination and may represent a benign granuloma. Lungs are otherwise clear. Remote lower lumbar fusion surgery. No bowel obstruction or free peritoneal gas. No abnormal abdominal or pelvic calcifications. IMPRESSION: No evidence of nausea and vomiting etiology. Unchanged benign old granulomatous disease in the left lung. Otherwise, normal chest radiograph. Electronically signed by: Sam Antunez MD 10/29/2018 2:27 PM CDT
[2018-10-29] MEDS ORDERED: SCOPOLAMINE PATCH 1.5MG 1 EA TD ONE (14:37)
--- NOTE | 2018-10-29 14:50 | ED.PDOC ---
History of Present Illness - General Chief Complaint: General Stated Complaint: n/v x5 days, headache Time Seen by Provider: 10/29/18 13:21 Source: patient Exam Limitations: no limitations - History of Present Illness Initial Comments: the patient's 58-year-old female presenting to the emergency room secondary to 4 days of intermittent nausea and vomiting. She has had periods of cyclical nausea and vomiting the past. No point abdominal pain. No history of pancreatitis. No blood and no bile. No diarrhea. No syncope or near syncope. She feels like she is significantly dehydrated.he does appear to have a dehydration headache. Timing/Duration: other - 4 days Severity: moderate Improving Factors: nothing Worsening Factors: nothing Associated Symptoms: headaches, loss of appetite, malaise, nausea/vomiting Allergies/Adverse Reactions: Allergies Cephalexin [From Keflex] Allergy (Unknown, Verified 11/15/17 14:55) per physician order sheet Erythromycin Allergy (Verified 05/02/18 22:33) Orphenadrine [From K-Flex] Allergy (Verified 11/15/17 14:55) Prochlorperazine [From Compazine] Allergy (Verified 05/02/18 22:33) Sulfa Drugs Allergy (Verified 05/02/18 22:33) Tetanus Toxoid Allergy (Verified 11/15/17 14:55) mycins Allergy (Uncoded 11/15/17 14:55) Home Medications: Ambulatory Orders Trazodone HCl 150 mg PO BEDTIME 08/04/16 Duloxetine HCl [Cymbalta] 80 mg PO BID 10/29/18 Ondansetron [Ondansetron Odt] 4 mg PO Q8HR PRN #5 tab 10/29/18 cloNAZepam [Klonopin] 1 mg PO BID PRN 10/29/18 Review of Systems - Review of Systems Constitutional: States: malaise EENTM: States: no symptoms reported Respiratory: States: no symptoms reported Cardiology: States: no symptoms reported Gastrointestinal/Abdominal: States: nausea, vomiting Genitourinary: States: no symptoms reported Musculoskeletal: States: no symptoms reported Skin: States: no symptoms reported Neurological: States: no symptoms reported Endocrine: States: no symptoms reported All other Systems: No Change from Baseline Past Medical History (General) - Patient Medical History Hx Seizures: Yes - pseudoseizures Hx Stroke: No Hx Dementia: No Hx Asthma: No Hx of COPD: No Hx Cardiac Disorders: No Hx Congestive Heart Failure: No Hx Pacemaker: No Hx Hypertension: No Hx Thyroid Disease: No Hx Diabetes: No Hx Gastroesophageal Reflux: No Hx Renal Disease: No Hx Cancer: No Hx of HIV: No Hx Hepatitis C: No Hx MRSA: No MRSA Source:: nasal Surgical History: Hysterectomy, other - Vaccination History Hx Tetanus, Diphtheria Vaccination: Yes - 2013 Hx Influenza Vaccination: No Hx Pneumococcal Vaccination: No - Social History Hx Tobacco Use: No Hx Chewing Tobacco Use: No Hx Alcohol Use: No Hx Substance Use: No Hx Substance Use Treatment: No Hx Depression: No Hx Physical Abuse: No Hx Emotional Abuse: No Hx Suspected Abuse: No - Female History Patient : No Family Medical History - Family History Mother Family History: No Known Living Status: Unknown Hx Family Asthma: No Hx Family Cancer: Yes - basal cell ca-mom Hx Family;Other: pt unable to explain family history at this time Physical Exam - Physical Exam General Appearance: Alert, Comfortable, No apparent distress Eye Exam: bilateral normal Ears, Nose, Throat: hearing grossly normal, normal ENT inspection, normal pharynx Neck: full range of motion, supple Respiratory: lungs clear, normal breath sounds, no respiratory distress, no accessory muscle use Cardiovascular/Chest: normal peripheral pulses, regular rate, rhythm, no edema Peripheral Pulses: radial,right: 2+, radial,left: 2+ Gastrointestinal/Abdominal: non tender, soft Rectal Exam: deferred Back Exam: no CVA tenderness, no vertebral tenderness Extremity: normal range of motion, non-tender, normal inspection, no pedal edema, normal capillary refill Neurologic: director operations II-XII nml as tested, no motor/sensory deficits, alert, normal mood/affect, oriented x 3 Skin Exam: normal color Comments: Vital Signs - 24 hr 10/29/18 10/29/18 13:02 14:03 Temperature 99.3 F 98.8 F Pulse Rate [ 92 H 87 left brachial] Respiratory 16 18 Rate Blood Pressure 153/88 142/78 [left brachial] O2 Sat by Pulse 97 97 Oximetry Progress - Progress Progress: 10/29/18 14:51 the patient's a 58-year-old female presenting with nausea and vomiting last 4 days and some mild dehydration. She received a liter of IV fluids as well as nausea medications and a headache medication. She is having a scopolamine patch placed to help combat the nausea for the next few days. If she is feeling dizzy or confused than she has to remove this. She will additionally be written for some Zofran for as needed use. She needs to maintain a bland primarily liquid diet for the next few days. ER warnings were given for any acute worsening. Follow up with primary care doctor early next week. - Results/Orders Results/Orders: acute abdominal series shows no definitive pathology. Laboratory Tests 10/29/18 10/29/18 10/29/18 13:18 13:22 13:55 WBC 8.0 RBC 4.29 Hgb 13.6 Hct 39.7 MCV 92.6 MCH 31.6 H MCHC 34.2 RDW 12.8 Plt Count 271 MPV 8.2 Absolute Neuts (auto) 5.10 Absolute Lymphs (auto) 2.00 Absolute Monos (auto) 0.70 Absolute Eos (auto) 0.00 Absolute Basos (auto) 0.10 Neutrophils % 64.3 Lymphocytes % 25.1 Monocytes % 9.1 H Eosinophils % 0.4 L Basophils % 1.1 Sodium Potassium Chloride Carbon Dioxide Anion Gap BUN Creatinine BUN/Creatinine Ratio Random Glucose Serum Osmolality Calcium Magnesium Total Bilirubin AST ALT Alkaline Phosphatase Serum Total Protein Albumin Globulin Albumin/Globulin Ratio Amylase Lipase Urine Color Yellow Urine Appearance Clear Urine pH 7.0 Ur Specific [place] 1.015 Urine Protein Negative Urine Glucose (UA) Negative Urine Ketones Negative Urine Blood Small H Urine Nitrite Negative Urine Bilirubin Negative Urine Urobilinogen 0.2 Ur Leukocyte Esterase Negative Urine RBC 0-1 Urine WBC 0 Ur Epithelial Cells 0-1 Urine Bacteria Rare Urine HCG, Qual Negative 10/29/18 13:55 WBC RBC Hgb Hct MCV MCH MCHC RDW Plt Count MPV Absolute Neuts (auto) Absolute Lymphs (auto) Absolute Monos (auto) Absolute Eos (auto) Absolute Basos (auto) Neutrophils % Lymphocytes % Monocytes % Eosinophils % Basophils % Sodium 135 Potassium 4.1 Chloride 101 Carbon Dioxide 22 Anion Gap 16.1 BUN 13 Creatinine 0.60 BUN/Creatinine Ratio 21.7 H Random Glucose 79 Serum Osmolality 269.1 L Calcium 8.5 Magnesium 1.9 Total Bilirubin 0.5 AST 21 ALT 17 Alkaline Phosphatase 56 Serum Total Protein 6.9 Albumin 3.9 Globulin 3.0 Albumin/Globulin Ratio 1.3 Amylase 85 Lipase 39 Urine Color Urine Appearance Urine pH Ur Specific [place] Urine Protein Urine Glucose (UA) Urine Ketones Urine Blood Urine Nitrite Urine Bilirubin Urine Urobilinogen Ur Leukocyte Esterase Urine RBC Urine WBC Ur Epithelial Cells Urine Bacteria Urine HCG, Qual Departure - Departure Clinical Impression: Viral gastroenteritis Disposition: Discharge to Home or Self Care Condition: Fair Departure Forms: ED Discharge - Pt. Copy, Patient Portal Self Enrollment Instructions: Nausea and Vomiting, Adult (DC) Diet: bland diet Activity: increase activity as tolerated Referrals: Boy Marie MD [Primary Care Provider] - 1-5 Days Prescriptions: Ondansetron [Ondansetron Odt] 4 mg PO Q8HR PRN #5 tab PRN Reason: Nausea/Vomiting Home Medications: Ambulatory Orders Trazodone HCl 150 mg PO BEDTIME 08/04/16 Duloxetine HCl [Cymbalta] 80 mg PO BID 10/29/18 Ondansetron [Ondansetron Odt] 4 mg PO Q8HR PRN #5 tab 10/29/18 cloNAZepam [Klonopin] 1 mg PO BID PRN 10/29/18 Additional Instructions: the patient's a 58-year-old female presenting with nausea and vomiting last 4 days and some mild dehydration. She received a liter of IV fluids as well as nausea medications and a headache medication. She is having a scopolamine patch placed to help combat the nausea for the next few days. If she is feeling dizzy or confused than she has to remove this. She will additionally be written for some Zofran for as needed use. She needs to maintain a bland primarily liquid diet for the next few days. ER warnings were given for any acute worsening. Follow up with primary care doctor early next week.
[2018-10-29] MEDS ORDERED: ONDANSETRON INJ 4 MG/2 ML VIAL IV ONE (15:20)
[2018-10-29 15:23] VITALS: BP 154/92; O2SAT 96
== END 2018-10-29 15:44 | disposition home or self-care (01) ==
LOC: ER 12:56
DX: A08.4 Viral intestinal infection, unspecified (principal); Z88.7 Allergy status to serum and vaccine; Z88.2 Allergy status to sulfonamides; Z88.8 Allergy status to other drugs, medicaments and biological substances; Z88.1 Allergy status to other antibiotic agents
CPT/HCPCS: 36415; 74019; 80053; 81001; 81025; 82150; 83690; 83735; 85025; J2405; J7030

== ENCOUNTER 2018-10-30 10:13 | Emergency (ER) | payer MEDICARE ==
--- NOTE | 2018-10-30 10:53 | ED.PDOC ---
History of Present Illness - General Chief Complaint: General Stated Complaint: Headache, N/V/D, lightheaded, dizzy Time Seen by Provider: 10/30/18 10:36 Source: patient Exam Limitations: no limitations - History of Present Illness Initial Comments: Patient presents with non-bloody diarrhea for 6 days. She says she has had it 7 times in the last 9 hours. She had N/V until yesterday when she was seen in the E.D. here and given ondansetron, scopolamine patch, and fluids. She has a generalized throbbing headache since yesterday. No exacerbating nor alleviating factors. No focal symptoms. No fever nor photophobia. She is shaky all over today and says that she thinks it is the scopoloamine patch. She had the headache yesterday and say she was given [place] for it. She has a history of pseudoseizures and says she has had a CT head in the last year. No other complaints. Timing/Duration: 1 week Severity: moderate Improving Factors: nothing Worsening Factors: nothing Associated Symptoms: other - as in HPI Allergies/Adverse Reactions: Allergies Cephalexin [From Keflex] Allergy (Unknown, Verified 10/30/18 10:38) per physician order sheet Erythromycin Allergy (Verified 10/30/18 10:38) Orphenadrine [From K-Flex] Allergy (Verified 10/30/18 10:38) Prochlorperazine [From Compazine] Allergy (Verified 10/30/18 10:38) Sulfa Drugs Allergy (Verified 10/30/18 10:38) Tetanus Toxoid Allergy (Verified 10/30/18 10:38) mycins Allergy (Uncoded 11/15/17 14:55) Home Medications: Ambulatory Orders Trazodone HCl 150 mg PO BEDTIME 08/04/16 Duloxetine HCl [Cymbalta] 80 mg PO BID 10/29/18 Ondansetron [Ondansetron Odt] 4 mg PO Q8HR PRN #5 tab 10/29/18 cloNAZepam [Klonopin] 1 mg PO BID PRN 10/29/18 Review of Systems - Review of Systems Constitutional: States: no symptoms reported EENTM: States: no symptoms reported Respiratory: States: no symptoms reported Cardiology: States: no symptoms reported Gastrointestinal/Abdominal: States: see HPI Genitourinary: States: no symptoms reported Musculoskeletal: States: no symptoms reported Skin: States: no symptoms reported Neurological: States: see HPI Endocrine: States: no symptoms reported Hematologic/Lymphatic: States: no symptoms reported Past Medical History (General) - Patient Medical History Hx Seizures: Yes - pseudoseizures Hx Stroke: No Hx Dementia: No Hx Asthma: No Hx of COPD: No Hx Cardiac Disorders: No Hx Congestive Heart Failure: No Hx Pacemaker: No Hx Hypertension: No Hx Thyroid Disease: No Hx Diabetes: No Hx Gastroesophageal Reflux: No Hx Renal Disease: No Hx Cancer: No Hx of HIV: No Hx Hepatitis C: No Hx MRSA: No MRSA Source:: nasal Surgical History: Hysterectomy, other - Vaccination History Hx Tetanus, Diphtheria Vaccination: No Hx Influenza Vaccination: No Hx Pneumococcal Vaccination: No - Social History Hx Tobacco Use: Yes Hx Chewing Tobacco Use: No Hx Alcohol Use: Yes Hx Substance Use: No Hx Substance Use Treatment: No Hx Depression: No Hx Physical Abuse: No Hx Emotional Abuse: No Hx Suspected Abuse: No - Female History Patient is a Female of Child Bearing Age (10 -59 yrs old): Yes Patient : No Family Medical History - Family History Mother Family History: No Known Living Status: Unknown Hx Family Asthma: No Hx Family Cancer: Yes - basal cell ca-mom Hx Family;Other: pt unable to explain family history at this time Physical Exam - Physical Exam General Appearance: Alert Eye Exam: bilateral normal Ears, Nose, Throat: normal ENT inspection Neck: non-tender, full range of motion, supple Respiratory: chest non-tender, lungs clear, normal breath sounds Cardiovascular/Chest: normal peripheral pulses, regular rate, rhythm Gastrointestinal/Abdominal: normal bowel sounds, non tender, soft Back Exam: normal inspection, no CVA tenderness Extremity: normal range of motion, non-tender, normal inspection Neurologic: lapidarist II-XII nml as tested, no motor/sensory deficits, alert, normal mood/affect Skin Exam: normal color Lymphatic: no adenopathy Progress - Progress Progress: 10/30/18 14:00 Laboratory Tests 10/30/18 10/30/18 10/30/18 11:38 11:38 13:18 WBC 7.9 RBC 4.33 Hgb 13.9 Hct 40.6 MCV 93.7 MCH 32.2 H MCHC 34.4 RDW 12.6 Plt Count 277 MPV 8.2 Absolute Neuts (auto) 6.00 Absolute Lymphs (auto) 1.10 Absolute Monos (auto) 0.70 Absolute Eos (auto) 0.00 Absolute Basos (auto) 0.00 Neutrophils % 75.7 Lymphocytes % 14.3 L Monocytes % 9.4 H Eosinophils % 0.2 L Basophils % 0.4 Sodium 136 Potassium 3.9 Chloride 101 Carbon Dioxide 23 Anion Gap 15.9 BUN 11 Creatinine 0.72 BUN/Creatinine Ratio 15.3 Random Glucose 98 Serum Osmolality 271.3 L Calcium 9.0 Total Bilirubin 0.8 AST 21 ALT 19 Alkaline Phosphatase 58 Serum Total Protein 7.4 Albumin 4.3 Globulin 3.1 Albumin/Globulin Ratio 1.4 TSH 0.96 Thyroxine (T4) 8.10 Urine Color Yellow Urine Appearance Clear Urine pH 7.0 Ur Specific [place] 1.015 Urine Protein Negative Urine Glucose (UA) Negative Urine Ketones Negative Urine Blood Small H Urine Nitrite Negative Urine Bilirubin Negative Urine Urobilinogen 0.2 Ur Leukocyte Esterase Negative Urine RBC 3-5 H Urine WBC 0 Ur Epithelial Cells 0 Urine Bacteria 0 Patient did not have a bowel movement in the E.D. She had some nausea which resolved with Zofran 4 mg IV x one. She received one liter NS bolus as well as Toradol for the headache. Her symptoms improved. She was given instructions to use Immodium A-D as directed. RX for Zofran given. Care instructions given. E.R. warnings given. Questions were elicited and answered. Patient voiced understanding and agreement with the plan. Departure - Departure Clinical Impression: Diarrhea Disposition: Discharge to Home or Self Care Condition: Good Departure Forms: ED Discharge - Pt. Copy, Patient Portal Self Enrollment Instructions: [place] Diet, Diarrhea in Adolescents and Adults Diet: other - Increase oral fluids. [place] diet at first then advance as tolerated. Activity: increase activity as tolerated Referrals: Boy Marie MD [Primary Care Provider] - 1-2 Weeks Home Medications: Ambulatory Orders Trazodone HCl 150 mg PO BEDTIME 08/04/16 Duloxetine HCl [Cymbalta] 80 mg PO BID 10/29/18 Ondansetron [Ondansetron Odt] 4 mg PO Q8HR PRN #5 tab 10/29/18 cloNAZepam [Klonopin] 1 mg PO BID PRN 10/29/18 Additional Instructions: Increase oral fluids. Bring stool sample back to the laboratory using the kit provided. Take medications as prescribe. Start using Immodium A-D today as directed. See your regular doctor in 2-3 days. Return to the E.R for temperature above 100.3, bloody diarrhea, or increasing abdominal pain.
[2018-10-30] MEDS ORDERED: SODIUM CHLORIDE 0.9% 1000ML 1,000 ML IVS ONE (11:59)
[2018-10-30] MEDS ORDERED: ONDANSETRON INJ 4 MG/2 ML VIAL IV ONE (12:04)
[2018-10-30] MEDS ORDERED: ACETAMINOPHEN 325 MG TAB PO ONE (12:29)
[2018-10-30] MEDS ORDERED: KETOROLAC TROMETHAMINE INJ 30 MG/ML VIAL IV ONE (13:03)
[2018-10-30] MEDS ORDERED: ONDANSETRON ODT (ER DISP) 8 MG TAB PO ONE (14:02)
[2018-10-30 14:43] VITALS: BP 129/74; TEMP 98.3; O2SAT 96
== END 2018-10-30 14:35 | disposition home or self-care (01) ==
LOC: ER 10:13
DX: R19.7 Diarrhea, unspecified (principal); R51 Headache; R11.2 Nausea with vomiting, unspecified; R42 Dizziness and giddiness; R56.9 Unspecified convulsions; Z87.891 Personal history of nicotine dependence; Z79.899 Other long term (current) drug therapy; Z88.7 Allergy status to serum and vaccine; Z88.1 Allergy status to other antibiotic agents; Z88.2 Allergy status to sulfonamides; Z88.8 Allergy status to other drugs, medicaments and biological substances
CPT/HCPCS: 36415; 80053; 81001; 84436; 84443; 85025; J1885; J2405; J7030

== ENCOUNTER 2018-11-14 17:19 | Emergency (ER) | payer MEDICARE ==
[2018-11-14 17:29] VITALS: TEMP 97.5
--- NOTE | 2018-11-14 17:31 | ED.PDOC ---
History of Present Illness - General Chief Complaint: Neuro Symptoms/Deficits Stated Complaint: seizures Time Seen by Provider: 11/14/18 17:26 Source: patient, EMS Exam Limitations: clinical condition - History of Present Illness Initial Comments: Patient presents from home with generalized tonic-clonic seizures of unknown duration. EMS gave her Diazepam and Versed. The patient has a history of seizure disorder but has not had seizures in over a year. Her only current known BZD is Klonopin. No other history is available. Timing/Duration: unsure Severity: severe Improving Factors: nothing Worsening Factors: nothing Associated Symptoms: weakness - unknown Allergies/Adverse Reactions: Allergies Cephalexin [From Keflex] Allergy (Unknown, Verified 10/30/18 10:38) per physician order sheet Erythromycin Allergy (Verified 10/30/18 10:38) Orphenadrine [From K-Flex] Allergy (Verified 10/30/18 10:38) Prochlorperazine [From Compazine] Allergy (Verified 10/30/18 10:38) Sulfa Drugs Allergy (Verified 10/30/18 10:38) Tetanus Toxoid Allergy (Verified 10/30/18 10:38) mycins Allergy (Uncoded 11/15/17 14:55) Home Medications: Ambulatory Orders Trazodone HCl 150 mg PO BEDTIME 08/04/16 Duloxetine HCl [Cymbalta] 80 mg PO BID 10/29/18 Ondansetron [Ondansetron Odt] 4 mg PO Q8HR PRN #5 tab 10/29/18 cloNAZepam [Klonopin] 1 mg PO BID PRN 10/29/18 Review of Systems - Review of Systems Constitutional: States: no symptoms reported EENTM: States: no symptoms reported Respiratory: States: no symptoms reported Cardiology: States: no symptoms reported Gastrointestinal/Abdominal: States: no symptoms reported Genitourinary: States: no symptoms reported Musculoskeletal: States: no symptoms reported Skin: States: no symptoms reported Neurological: States: see HPI Endocrine: States: no symptoms reported Hematologic/Lymphatic: States: no symptoms reported Past Medical History (General) - Patient Medical History Hx Seizures: Yes - pseudoseizures Hx Stroke: No Hx Dementia: No Hx Asthma: No Hx of COPD: No Hx Cardiac Disorders: No Hx Congestive Heart Failure: No Hx Pacemaker: No Hx Hypertension: No Hx Thyroid Disease: No Hx Diabetes: No Hx Gastroesophageal Reflux: No Hx Renal Disease: No Hx Cancer: No Hx of HIV: No Hx Hepatitis C: No Hx MRSA: No MRSA Source:: nasal - Vaccination History Hx Tetanus, Diphtheria Vaccination: No Hx Influenza Vaccination: No Hx Pneumococcal Vaccination: No - Social History Hx Tobacco Use: Yes Hx Chewing Tobacco Use: No Hx Alcohol Use: Yes Hx Substance Use: No Hx Substance Use Treatment: No Hx Depression: No Hx Physical Abuse: No Hx Emotional Abuse: No Hx Suspected Abuse: No - Female History Patient : No Family Medical History - Family History Mother Family History: No Known Living Status: Unknown Hx Family Asthma: No Hx Family Cancer: Yes - basal cell ca-mom Hx Family;Other: pt unable to explain family history at this time Physical Exam - Physical Exam General Appearance: Alert Eye Exam: bilateral normal Ears, Nose, Throat: normal ENT inspection Neck: non-tender, full range of motion, supple Respiratory: lungs clear, normal breath sounds Cardiovascular/Chest: normal peripheral pulses, regular rate, rhythm Gastrointestinal/Abdominal: normal bowel sounds, non tender, soft Back Exam: normal inspection, no CVA tenderness Extremity: normal range of motion, non-tender, normal inspection Neurologic: parts counter specialist II-XII nml as tested, no motor/sensory deficits, other - Alert to name and place. Speaks in short sentences. Answers questions appropriately. Skin Exam: normal color Lymphatic: no adenopathy Progress - Progress Progress: 11/14/18 19:18 Laboratory Tests 11/14/18 11/14/18 11/14/18 17:57 17:57 17:57 WBC 6.5 RBC 3.99 L Hgb 12.8 Hct 37.0 MCV 92.8 MCH 32.0 H MCHC 34.5 RDW 12.4 Plt Count 277 MPV 8.0 Absolute Neuts (auto) 3.90 Absolute Lymphs (auto) 2.00 Absolute Monos (auto) 0.50 Absolute Eos (auto) 0.10 Absolute Basos (auto) 0.00 Neutrophils % 60.2 Lymphocytes % 30.4 Monocytes % 7.2 Eosinophils % 1.5 Basophils % 0.7 Sodium 141 Potassium 3.6 Chloride 104 Carbon Dioxide 25 Anion Gap 15.6 BUN 11 Creatinine 0.55 L BUN/Creatinine Ratio 20.0 POC Glucose Random Glucose 80 Serum Osmolality 279.6 Lactic Acid Calcium 8.6 Total Bilirubin 0.6 AST 18 ALT 16 Alkaline Phosphatase 52 Creatine Kinase 68 CK-MB (CK-2) 1.0 CK-MB (CK-2) % Not Reportable Troponin I < 0.02 Serum Total Protein 6.6 Albumin 3.7 Globulin 2.9 Albumin/Globulin Ratio 1.3 TSH 0.36 Thyroxine (T4) Urine Color Urine Appearance Urine pH Ur Specific [place] Urine Protein Urine Glucose (UA) Urine Ketones Urine Blood Urine Nitrite Urine Bilirubin Urine Urobilinogen Ur Leukocyte Esterase Urine RBC Urine WBC Ur Epithelial Cells Urine Bacteria 11/14/18 11/14/18 11/14/18 17:57 17:57 17:57 WBC RBC Hgb Hct MCV MCH MCHC RDW Plt Count MPV Absolute Neuts (auto) Absolute Lymphs (auto) Absolute Monos (auto) Absolute Eos (auto) Absolute Basos (auto) Neutrophils % Lymphocytes % Monocytes % Eosinophils % Basophils % Sodium Potassium Chloride Carbon Dioxide Anion Gap BUN Creatinine BUN/Creatinine Ratio POC Glucose 82 Random Glucose Serum Osmolality Lactic Acid 1.5 Calcium Total Bilirubin AST ALT Alkaline Phosphatase Creatine Kinase CK-MB (CK-2) CK-MB (CK-2) % Troponin I Serum Total Protein Albumin Globulin Albumin/Globulin Ratio TSH Thyroxine (T4) 6.51 Urine Color Urine Appearance Urine pH Ur Specific [place] Urine Protein Urine Glucose (UA) Urine Ketones Urine Blood Urine Nitrite Urine Bilirubin Urine Urobilinogen Ur Leukocyte Esterase Urine RBC Urine WBC Ur Epithelial Cells Urine Bacteria 11/14/18 18:25 WBC RBC Hgb Hct MCV MCH MCHC RDW Plt Count MPV Absolute Neuts (auto) Absolute Lymphs (auto) Absolute Monos (auto) Absolute Eos (auto) Absolute Basos (auto) Neutrophils % Lymphocytes % Monocytes % Eosinophils % Basophils % Sodium Potassium Chloride Carbon Dioxide Anion Gap BUN Creatinine BUN/Creatinine Ratio POC Glucose Random Glucose Serum Osmolality Lactic Acid Calcium Total Bilirubin AST ALT Alkaline Phosphatase Creatine Kinase CK-MB (CK-2) CK-MB (CK-2) % Troponin I Serum Total Protein Albumin Globulin Albumin/Globulin Ratio TSH Thyroxine (T4) Urine Color Colorless Urine Appearance Clear Urine pH 7.5 Ur Specific [place] 1.015 Urine Protein Negative Urine Glucose (UA) Negative Urine Ketones Negative Urine Blood Trace-lysed H Urine Nitrite Negative Urine Bilirubin Negative Urine Urobilinogen 0.2 Ur Leukocyte Esterase Negative Urine RBC 0-1 Urine WBC 0 Ur Epithelial Cells 0-1 Urine Bacteria 0 Patient appeared to go into a seizure while in the E.D. She was given Ativan 2 mg IV x one. Her "seizure" was unusual because she would push against staff vincenzo t tried to protect her arms from flailing and hitting equipment and other people. This is not typical seizure activity to be able to counter protective restraint seemingly purposefully. She was transferred to [facility] for likely neurological evaluation then possibly psychiatric evaluation. Her and the patient both agreed with the plan. Departure - Departure Clinical Impression: Pseudoseizures, Seizure disorder Disposition: Transfer to Hospital Condition: Fair Departure Forms: ED Discharge - Pt. Copy, Patient Portal Self Enrollment Diet: other - NPO Activity: other - as per hospitalist Referrals: Boy Marie MD [Primary Care Provider] - 1-2 Weeks Home Medications: Ambulatory Orders Trazodone HCl 150 mg PO BEDTIME 08/04/16 Duloxetine HCl [Cymbalta] 80 mg PO BID 10/29/18 Ondansetron [Ondansetron Odt] 4 mg PO Q8HR PRN #5 tab 10/29/18 cloNAZepam [Klonopin] 1 mg PO BID PRN 10/29/18
--- NOTE | 2018-11-14 17:54 | CT ---
EXAM DESCRIPTION: CT of the head without contrast CLINICAL HISTORY: seizures COMPARISON: Previous CT of the head May 12, 2017 TECHNIQUE: Noncontrast head CT was performed with routine protocol. FINDINGS: Normal doran-white matter differentiation. Ventricles and sulci are normal for age. No high density hemorrhage, focal edema or shift of the midline. No sulcal effacement. Normal orbital contents. Basilar cisterns appear clear. Intact calvarium with no fracture or lytic lesion. Normal aeration of tympanic cavities and mastoid air cells. No fluid levels in the paranasal sinuses. Skull base appears intact. Symmetrical internal auditory canals. Coronal and sagittal reformatted images confirm the findings. No change compared to the previous study. IMPRESSION: No acute intracranial pathologic process. This exam was performed according to our departmental dose-optimization program, which includes automated exposure control, adjustment of the mA and/or kV according to patient size and/or use of iterative reconstruction technique. Total DLP equals 967.47 mGycm. Electronically signed by: Sunny Marino MD 11/14/2018 5:52 PM CDT
[2018-11-14 18:35] VITALS: O2SAT 96
[2018-11-14] MEDS ORDERED: PHENYTOIN SODIUM INJ 100 MG/2 ML VIAL IV ONE (18:36)
[2018-11-14] MEDS ORDERED: SODIUM CHLORIDE 0.9% 1000ML 1,000 ML ONE (19:23)
[2018-11-14] MEDS ORDERED: MULTIPLE VITAMIN 10 ML VIAL ONE (19:23)
[2018-11-14] MEDS ORDERED: THIAMINE HCL INJ 100 MG/ML VIAL ONE (19:23)
[2018-11-14] MEDS ORDERED: MULTIPLE VITAMIN INJ 10 ML, THIAMINE HCL INJ 100 MG in SODIUM CHLORIDE 0.9% 1000ML 1,00... IVS SCH (19:30)
[2018-11-14 20:05] VITALS: BP 129/72
== END 2018-11-14 20:14 | disposition short-term general hospital (02) ==
LOC: ER 17:19
DX: G40.909 Epilepsy, unspecified, not intractable, without status epilepticus (principal); Z87.891 Personal history of nicotine dependence; Z79.899 Other long term (current) drug therapy; Z88.1 Allergy status to other antibiotic agents; Z88.2 Allergy status to sulfonamides; Z88.7 Allergy status to serum and vaccine
CPT/HCPCS: 36415; 70450; 80053; 80307; 81001; 82550; 82553; 82948; 83605; 84436; 84443; 84484; 85025; J2060; J3411; J7030

== ENCOUNTER 2018-11-22 14:29 | Emergency (ER) | payer MEDICARE ==
--- NOTE | 2018-11-22 15:42 | ED.PDOC ---
History of Present Illness - General Chief Complaint: Neuro Symptoms/Deficits Stated Complaint: seizure at home Time Seen by Provider: 11/22/18 15:06 Source: EMS Exam Limitations: clinical condition - History of Present Illness Initial Comments: Patient presents with acute on chronic seizure-like activity. The patient has been diagnosed with both pseudoseizures and seizures. Most commonly she will be found at home with seizure-like activity, given benzodiazapines, transferred to [facility], and sent home. Last time she was here she said that she would not take Keppra. Upon attempting to question her, she distorts her upper extremities into fixed posture positions and kicks her legs. She was given Ativan 1 mg IV x one by EMS. She offers no other history. arrived later and said that she had been taking Keppra. She was lucid at that point and corroborated this. Timing/Duration: unsure Severity: moderate Improving Factors: nothing Worsening Factors: nothing Associated Symptoms: other - patient will not answer questions. Allergies/Adverse Reactions: Allergies Cephalexin [From Keflex] Allergy (Unknown, Verified 10/30/18 10:38) per physician order sheet Erythromycin Allergy (Verified 10/30/18 10:38) Orphenadrine [From K-Flex] Allergy (Verified 10/30/18 10:38) Prochlorperazine [From Compazine] Allergy (Verified 10/30/18 10:38) Sulfa Drugs Allergy (Verified 10/30/18 10:38) Tetanus Toxoid Allergy (Verified 10/30/18 10:38) mycins Allergy (Uncoded 11/15/17 14:55) Home Medications: Ambulatory Orders Trazodone HCl 150 mg PO BEDTIME 08/04/16 Duloxetine HCl [Cymbalta] 80 mg PO BID 10/29/18 Ondansetron [Ondansetron Odt] 4 mg PO Q8HR PRN #5 tab 10/29/18 cloNAZepam [Klonopin] 1 mg PO BID PRN 10/29/18 Review of Systems - Review of Systems Unable to Obtain Due To: clinical condition Past Medical History (General) - Patient Medical History Hx Seizures: Yes - pseudoseizures Hx Stroke: No Hx Dementia: No Hx Asthma: No Hx of COPD: No Hx Cardiac Disorders: No Hx Congestive Heart Failure: No Hx Pacemaker: No Hx Hypertension: No Hx Thyroid Disease: No Hx Diabetes: No Hx Gastroesophageal Reflux: No Hx Renal Disease: No Hx Cancer: No Hx of HIV: No Hx Hepatitis C: No Hx MRSA: No MRSA Source:: nasal Surgical History: Hysterectomy - Vaccination History Hx Tetanus, Diphtheria Vaccination: No Hx Influenza Vaccination: No Hx Pneumococcal Vaccination: No - Social History Hx Tobacco Use: Yes Hx Chewing Tobacco Use: No Hx Alcohol Use: Yes Hx Substance Use: No Hx Substance Use Treatment: No Hx Depression: No Hx Physical Abuse: No Hx Emotional Abuse: No Hx Suspected Abuse: No - Female History Patient : No Family Medical History - Family History Mother Family History: No Known Living Status: Unknown Hx Family Asthma: No Hx Family Cancer: Yes - basal cell ca-mom Hx Family;Other: pt unable to explain family history at this time Physical Exam - Physical Exam General Appearance: Alert Eye Exam: bilateral normal Ears, Nose, Throat: normal ENT inspection Neck: non-tender, full range of motion, supple Respiratory: lungs clear, normal breath sounds Cardiovascular/Chest: normal peripheral pulses, regular rate, rhythm Gastrointestinal/Abdominal: normal bowel sounds, non tender, soft Back Exam: normal inspection, no CVA tenderness Extremity: normal range of motion, non-tender, normal inspection 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, no motor/sensory deficits, alert Skin Exam: normal color Lymphatic: no adenopathy Progress - Progress Progress: 11/22/18 16:55 Laboratory Tests 11/22/18 11/22/18 15:40 15:40 WBC 7.0 RBC 4.35 Hgb 13.8 Hct 40.9 MCV 94.0 MCH 31.7 H MCHC 33.8 RDW 13.1 Plt Count 271 MPV 8.4 Absolute Neuts (auto) 4.40 Absolute Lymphs (auto) 1.80 Absolute Monos (auto) 0.70 Absolute Eos (auto) 0.10 Absolute Basos (auto) 0.00 Neutrophils % 62.9 Lymphocytes % 25.0 Monocytes % 10.2 H Eosinophils % 1.4 Basophils % 0.5 Sodium 144 Potassium 3.7 Chloride 106 Carbon Dioxide 25 Anion Gap 16.7 BUN 8 Creatinine 0.59 L BUN/Creatinine Ratio 13.6 Random Glucose 84 Serum Osmolality 284.4 Calcium 9.0 Magnesium 2.0 Total Bilirubin 0.3 AST 23 ALT 19 Alkaline Phosphatase 58 Serum Total Protein 7.0 Albumin 4.2 Globulin 2.8 Albumin/Globulin Ratio 1.5 Patient fell asleep in the E.D. There was no more seizure-like activity. I spoke with the who said that she has been taking Keppra per Dr. Houser in [place]. She has an appointment with him tomorrow. I offered to give her IV rehydration but she refused and said she wanted to go home. She was seizure free at time of discharge. Departure - Departure Clinical Impression: Seizure Disposition: Discharge to Home or Self Care Condition: Good Departure Forms: ED Discharge - Pt. Copy, Patient Portal Self Enrollment Diet: resume usual diet Activity: increase activity as tolerated, other - No driving until cleared by a neurologist Referrals: Boy Marie MD [Primary Care Provider] - 1-2 Weeks Home Medications: Ambulatory Orders Trazodone HCl 150 mg PO BEDTIME 08/04/16 Duloxetine HCl [Cymbalta] 80 mg PO BID 10/29/18 Ondansetron [Ondansetron Odt] 4 mg PO Q8HR PRN #5 tab 10/29/18 cloNAZepam [Klonopin] 1 mg PO BID PRN 10/29/18 Additional Instructions: Keep your appointment with Dr. Houser tomorrow. Return to the E.R. for worsening symptoms.
[2018-11-22] MEDS ORDERED: SODIUM CHLORIDE 0.9% 1000ML 1,000 ML IVS ONE (16:19)
[2018-11-22 17:34] VITALS: O2SAT 100
[2018-11-22 17:39] VITALS: BP 99/63; TEMP 98.2
== END 2018-11-22 17:10 | disposition home or self-care (01) ==
LOC: ER 14:29
DX: R56.9 Unspecified convulsions (principal); Z79.899 Other long term (current) drug therapy; Z87.891 Personal history of nicotine dependence; Z88.7 Allergy status to serum and vaccine; Z88.1 Allergy status to other antibiotic agents; Z88.2 Allergy status to sulfonamides; Z88.8 Allergy status to other drugs, medicaments and biological substances
CPT/HCPCS: 36415; 80053; 83735; 85025; J7030